=== PATIENT | male | born 1980 | race Caucasian/White ===

== ENCOUNTER 2019-05-07 02:45 | Emergency (ER) | payer MEDICAID, SELFPAY ==
[2019-05-07 02:56] VITALS: BP 126/102; RESP 16; TEMP 36.6; O2SAT 97; BMI 27.3
--- NOTE | 2019-05-07 03:18 | ED_ITS ---
Entered by Desiree Jiang, acting as scribe for Rudolph Delgado MD May 07, 2019 02:45 HPI - Anxiety General: Chief Complaint: Anxiety Stated Complaint: ANXIETY Time Seen by Provider: 05/07/19 03:20 Source: patient and family Mode of arrival: ambulatory Limitations: no limitations History of Present Illness: HPI narrative: 38 yo m came to the er pov with family for anxiety. Onset was today. Pt states that his heart feels like it is racing. complaint: anxiety Onset (ago): day(s) (today) Severity: mild Place: home Associated symptoms: Deny chest pain, chills, fever(s), headache(s) or vomiting Review of Systems Const: Denies: fever or chills Eyes: Denies: change in vision ENMT: Denies: throat pain or mouth pain Card: Denies: chest pain Resp: Denies: shortness of breath GI: Denies: vomiting Musc: Denies: back pain or joint pain Skin/Breast: Denies: rash Neuro: Denies: headache Psych: Reports: anxiety; Denies: depression Endo: Denies: excessive urination Zev/Lymph: Denies: easy bruising All/Imm: Denies: hives PFSH ED PFSH: Statuses (acute, chronic, etc) shown below reflect problem list status as previously entered and may not be historically accurate Family History Mother Hypertension Diabetes Myocardial infarction Grandmother Stroke Father CAD (coronary artery disease) Social History Smoking and tobacco status: current every day smoker Alcohol intake: never Physical Exam Const: COMMON NORMALS: no apparent distress and healthy appearing HENMT: COMMON NORMALS: normocephalic and external nose normal HEAD & SCALP: normocephalic NOSE: external nose normal and no nasal discharge (nasal dischage) Eye: COMMON NORMALS: PERRL PUPIL: Yes PERRL Neck/C-Spine: COMMON NORMALS: full ROM and no lymphadenopathy Chest: COMMONS NORMALS: inspection of chest normal Resp: COMMON NORMALS: normal respiratory effort and clear to auscultation bilaterally AUSCULTATION: clear to auscultation bilaterally Cardio: COMMON NORMALS: regular rate and regular rhythm RATE: regular rate RHYTHM: regular rhythm GI: COMMON NORMALS: soft to palpation PALPATION: Yes soft Extremity: COMMON NORMALS: normal to inspection, full ROM and normal capillary refill Psych: COMMON NORMALS: mental status grossly normal and cooperative Skin: COMMON NORMALS: no rashes or lesions noted GENERAL SKIN EXAM: no r ashes or lesions noted Course Vital Signs: Vital signs: Vital Signs Temperature 98 F 05/07/19 02:56 Pulse Rate 100 05/07/19 03:40 Respiratory Rate 18 05/07/19 03:40 Blood Pressure 116/87 05/07/19 03:40 Pulse Oximetry 99 05/07/19 03:40 MDM - Anxiety MDM Narrative: Medical decision making narrative: Patient presents here with anxiety that is chronic in nature. He is not homicidal or suicidal. Patient is well-appearing here and is stable for discharge. Patient given Ativan here and is to follow-up with primary care doctor in 3 to 5 days and return if worsening. Discharge Plan Discharge Patient Disposition: Home, Self-Care Clinical Impression: Acute anxiety Condition: Stable Prescriptions: No Action lisinopril 5 mg tablet 5 mg PO ONCE RF: 0 venlafaxine 150 mg capsule,extended release 24hr 150 mg PO QAM RF: 0 pregabalin [Lyrica] 75 mg capsule 75 mg PO ONCE RF: 0 metoprolol tartrate 25 mg tablet 12.5 mg PO ONCE RF: 0 Discharge Orders: Discharge Order (Routine); Ordered 05/07/19 Ordered By: Rudolph Delgado Referrals: Padma Charles FNP [Family Provider] - Discharge Diet: Advance as tolerated Discharge Activity: Resume usual activity Patient Instructions: Anxiety (ED) Discharge Date/Time: 05/07/19 03:41 Coding Level of Care Code ED Supervisor Painting for Chg Fwd Exam Problem Focused The documentation recorded by the Apolinar lyon Stephanie Lyn, accurately reflects the service I personally performed and the decisions made by , Rudolph Delgado MD May 07, 2019 02:45
[2019-05-07] MEDS: LORazepam 1 mg Tablet 2 MG PO (03:39)
[2019-05-07 03:40] VITALS: BP 116/87; PULSE 100; RESP 18; O2SAT 99
== END 2019-05-07 03:41 | disposition home or self-care (01) ==
PROVIDERS: Emergency Provider Emergency Medicine; Family Provider Nurse Practitioner Family
DX: F41.9 Anxiety disorder, unspecified (principal); F17.210 Nicotine dependence, cigarettes, uncomplicated
CPT/HCPCS: 99281; 99283

== ENCOUNTER 2019-05-28 22:45 | Emergency (ER) | payer MEDICAID, SELFPAY ==
[2019-05-28 22:56] VITALS: BP 139/88; PULSE 102; RESP 25; TEMP 38.8; O2SAT 96; BMI 26.6
[2019-05-28 23:01] VITALS: BP 130/85; PULSE 98; RESP 18; TEMP 39.4; O2SAT 96
--- NOTE | 2019-05-28 23:07 | ED_ITS ---
Entered by Desiree Jiang, acting as scribe for Lianne Liu Jeet May 28, 2019 22:45 HPI - Fever General: Chief Complaint: Fever Stated Complaint: flu s/s Time Seen by Provider: 05/28/19 23:07 Source: patient Mode of arrival: ambulatory Limitations: no limitations History of Present Illness: HPI Narrative: 38 yo m came to the er pov for a fever. MD elicited complaint: fever PFSH ED PFSH: Statuses (acute, chronic, etc) shown below reflect problem list status as previously entered and may not be historically accurate Social History (Updated 05/11/19 @ 15:18 by Nneka Cobos LPN) Smoking and tobacco status: current every day smoker cigarettes [ Other cigarette details: OCCASIONAL ] Second hand smoke exposure: No Smoking risk assessment/counseling performed?: No Alcohol intake: current Alcohol intake frequency: holidays/special occasions only Desire information about alcohol rehabilitation?: No Counseling given: No Desire information about substance/drug rehabilitation?: No Counseling given: No Caregiver/support person: Yes Lives independently: No Household members: spouse Current occupational status: employed Current gender identity: Male Course Vital Signs: Vital signs: Vital Signs Temperature 102 F H 05/28/19 22:56 Pulse Rate 102 H 05/28/19 22:56 Respiratory Rate 25 H 05/28/19 22:56 Blood Pressure 139/88 05/28/19 22:56 Pulse Oximetry 96 05/28/19 22:56 Discharge Plan Discharge Prescriptions: No Action amoxicillin-pot clavulanate 875-125 mg tablet 1 tab PO BID Qty: 14 RF: 0 lisinopril 5 mg tablet 5 mg PO ONCE RF: 0 venlafaxine 150 mg capsule,extended release 24hr 150 mg PO QAM RF: 0 pregabalin [Lyrica] 75 mg capsule 75 mg PO ONCE RF: 0 metoprolol tartrate 25 mg tablet 12.5 mg PO ONCE RF: 0 Coding Level of Care Code ED Customer Supply Chain Analyst for Estrellita Ramos
--- NOTE | 2019-05-28 23:13 | ED_ITS ---
HPI - General Adult General: Chief complaint: Fever Stated complaint: flu s/s Time Seen by Provider: 05/28/19 23:07 History of Present Illness: HPI narrative: Patient with fever for 2 days. Aches all over. MD complaint: fever Onset (ago): day(s) (2) Severity: moderate Associated symptoms: Reports fevers/chills and other (Muscle aches); Deny chest pain, dyspnea, headache(s), nausea, rash or vomiting Review of Systems Const: Reports: fever; Denies: chills or body aches Eyes: Denies: change in vision or blurry vision ENMT: Denies: throat pain or nasal congestion Card: Denies: chest pain or shortness of breath on exertion Resp: Denies: shortness of breath, productive cough or non-productive cough GI: Denies: abdominal pain, nausea or vomiting : Denies: difficulty urinating Musc: Denies: extremity pain Skin/Breast: Denies: rash Neuro: Denies: headache Psych: Denies: anxiety or depression Zev/Lymph: Denies: easy bruising PFSH ED PFSH: Statuses (acute, chronic, etc) shown below reflect problem list status as previously entered and may not be historically accurate Social History (Updated 05/11/19 @ 15:18 by Nneka Cobos LPN) Smoking and tobacco status: current every day smoker cigarettes [ Other cigarette details: OCCASIONAL ] Second hand smoke exposure: No Smoking risk assessment/counseling performed?: No Alcohol intake: current Alcohol intake frequency: holidays/special occasions only Desire information about alcohol rehabilitation?: No Counseling given: No Desire information about substance/drug rehabilitation?: No Counseling given: No Caregiver/support person: Yes Lives independently: No Household members: spouse Current occupational status: employed Current gender identity: Male Physical Exam Const: COMMON NORMALS: no apparent distress, average body habitus and oriented x3 HENMT: COMMON NORMALS: normocephalic HEAD & SCALP: normal to inspection and normocephalic FACE & SINUS: normal facial exam Eye: COMMON NORMALS: conjunctivae normal GENERAL EYE: normal appearance of both eyes CONJUNCTIVA: Yes conjunctivae normal Neck/C-Spine: COMMON NORMALS: no JVD Chest: COMMONS NORMALS: inspection of chest normal Resp: COMMON NORMALS: normal respiratory effort and clear to auscultation bilaterally AUSCULTATION: clear to auscultation bilaterally Cardio: COMMON NORMALS: no JVD, regular rate and regular rhythm RATE: regular rate RHYTHM: regular rhythm GI: COMMON NORMALS: normal to inspection, nondistended, normoactive bowel sounds Extremity: COMMON NORMALS: normal to inspection and full ROM Neuro: COMMON NORMALS: oriented x3 Course Vital Signs: Vital signs: Vital Signs Temperature 99.8 F H 05/29/19 00:13 Pulse Rate 98 05/28/19 23:01 Respiratory Rate 18 05/28/19 23:01 Blood Pressure 130/85 05/28/19 23:01 Pulse Oximetry 96 05/28/19 23:01 MDM - General Adult MDM Narrative: Medical decision making narrative: I explained in detail to patient and his about his labs and need to follow-up with his primary provider if there is no significant improvement in his condition patient understood. Lab Data: Labs: Lab Results 05/28/19 05/28/19 Range/Units 21:40 23:45 WBC 8.5 (4.0-10.0) 10^3/ uL RBC 4.51 (4.1-5.3) 10^6/u L Hgb 13.5 (11.7-16.6) g/dL Hct 41.5 L (42.0-52.0) % MCV 92.0 (80-94) fL MCH 29.9 (28.0-34.0) pg MCHC 32.5 (30.0-36.0) g/dL RDW 13.6 (12.1-15.1) % Plt Count 247 (130-400) 10^3/c mm MPV 10.2 (7.4-10.4) fL Neut % (Auto) 78.5 % Lymph % (Auto) 9.2 % Alfalfa % (Auto) 8.8 % Eos % (Auto) 2.5 % Baso % (Auto) 0.4 % Neut # (Auto) 6.7 (1.8-7.7) 10^3/u L Lymph # (Auto) 0.8 (0.8-4.8) 10^3/u L Alfalfa # (Auto) 0.8 (0.2-0.9) 10^3/u L Eos # (Auto) 0.2 (0.0-0.8) 10^3/u L Baso # (Auto) 0.0 (0.0-0.1) 10^3/u L Nucleated RBC % (a uto) 0 % Nucleated RBCs # 0.0 /100WBC Influenza Type A A g Negative (Negative) POC Influenza B Ag Negative (Negative) Discharge Plan Discharge Patient Disposition: Home, Self-Care Clinical Impression: Viral infection Condition: Stable Prescriptions: No Action amoxicillin-pot clavulanate 875-125 mg tablet 1 tab PO BID Qty: 14 RF: 0 lisinopril 5 mg tablet 5 mg PO ONCE RF: 0 venlafaxine 150 mg capsule,extended release 24hr 150 mg PO QAM RF: 0 pregabalin [Lyrica] 75 mg capsule 75 mg PO ONCE RF: 0 metoprolol tartrate 25 mg tablet 12.5 mg PO ONCE RF: 0 Discharge Orders: Discharge Order (Routine); Ordered 05/29/19 Ordered By: Loc Churchill Discharge Diet: Advance as tolerated Discharge Activity: Increase activity as tolerated Patient Instructions: Viral Syndrome (ED) Activity Restrictions/Additional Instructions: Follow-up with medical provider as directed. Return to the ER or your medical provider if condition worsens. Please read and understand discharge instructions. If any questions ask please. Increase fluids Coding Level of Care Code ED Braider Setter for Estrellita Ramos Exam Problem Focused
--- NOTE | 2019-05-28 23:14 | PC.NURSE ---
Introduced self to patient and initiated vital signs. Pt is A&O x 4 and agreeable. Pt states that the reason for the ER visit today is due to fever, generalized body aches, sore throat and runny nose. Reassured patient of needs and will continue to monitor. Awaiting provider at bedside.
[2019-05-28] MEDS: sodium chloride 0.9% 1,000 ML 999 ML IV (23:22)
[2019-05-28] MEDS: acetaminophen 650 mg/20.3 mL UDC PO (23:22)
[2019-05-29 00:06] LABS: Influenza A by IFA Negative (Negative); Influenza B by IFA Negative (Negative)
[2019-05-29 00:13] VITALS: TEMP 37.7
--- NOTE | 2019-05-29 00:13 | PC.NURSE ---
pt reports pain. ED Provider notified.
[2019-05-29 00:34] LABS: Basophils % 0.4 %; Eosinophils # 0.2 10^3/uL (0.0-0.8); Eosinophils % 2.5 %; Hematocrit 41.5 % (42.0-52.0); Hemoglobin 13.5 g/dL (11.7-16.6); Lymphocytes # 0.8 10^3/uL (0.8-4.8); Lymphocytes % 9.2 %; Mean Corpuscular HGB Conc 32.5 g/dL (30.0-36.0); Mean Corpuscular Hemoglobin 29.9 pg (28.0-34.0); Mean Platelet Volume 10.2 fL (7.4-10.4); Monocytes # 0.8 10^3/uL (0.2-0.9); Monocytes % 8.8 %; Neutrophils # 6.7 10^3/uL (1.8-7.7); Neutrophils % 78.5 %; Nucleated Red Blood Cells % 0 %; Platelet Count 247 10^3/cmm (130-400); Red Blood Count 4.51 10^6/uL (4.1-5.3); Red Cell Distribution Width 13.6 % (12.1-15.1); White Blood Count 8.5 10^3/uL (4.0-10.0)
[2019-05-29 00:42] LABS: Alanine Aminotransferase 47 U/L (0-41); Albumin Level 4.2 g/dL (3.5-5.2); Alkaline Phosphatase 92 IU/L (40-130); Anion Gap 16.1 (5-19); Aspartate Amino Transferase 33 U/L (0-40); Blood Urea Nitrogen 5 mg/dL (6-20); Calcium 9.4 mg/dL (8.5-10.5); Carbon Dioxide 26 mmol/L (22-29); Chloride 100 mmol/L (98-107); Globulin 3.2 g/dL (1.3-4.6); Glomerular Filtration Rate 95.5 mL/min (90-130); Glucose 101 mg/dL (74-109); Potassium 4.1 mmol/L (3.5-5.1); Sodium 138 mmol/L (136-145); Total Bilirubin 0.3 mg/dL (0.15-1.2); Total Protein 7.4 g/dL (6.6-8.7)
[2019-05-29 00:43] VITALS: BP 128/103; PULSE 68; RESP 18; TEMP 37.3; O2SAT 97
== END 2019-05-29 00:55 | disposition home or self-care (01) ==
PROVIDERS: Emergency Provider Nurse Practitioner Family
DX: B34.9 Viral infection, unspecified (principal); F17.210 Nicotine dependence, cigarettes, uncomplicated
CPT/HCPCS: 36415; 80053; 85025; 87040; 87804; 99282; J7030

== ENCOUNTER 2019-06-07 03:06 | Emergency (ER) | payer MEDICAID, SELFPAY ==
[2019-06-07 03:07] VITALS: BP 125/80; PULSE 86; RESP 16; TEMP 36.9; O2SAT 96; BMI 26.6
--- NOTE | 2019-06-07 03:07 | ED_ITS ---
Entered by Desiree Jiang, acting as scribe for Rudolph Delgado MD HPI - Chest Pain General: Chief Complaint: Chest Pain Stated Complaint: chest pain Time Seen by Provider: 06/07/19 03:07 Source: patient Mode of arrival: EMS Limitations: no limitations History of Present Illness: HPI narrative: 38 yo m came to the er by [facility] for chest pain. Onset was 30 min ago. Pt states that the pain is tight. MD complaint: chest pain Onset (ago): minute(s) (30 min ago) Timing of current episode: constant Prior episodes: No Onset: during rest Pain location: substernal Pain radiation: none Severity: mild Quality: tightness Relieving factors: nothing Exacerbating factors: nothing Associated symptoms: Reports no associated symptoms; Deny abdominal pain, dyspnea, fever(s), nausea or vomiting Treatment prior to arrival: aspirin and nitroglycerin Risk Factors: Thoracic aortic dissection risk factors: none Review of Systems General: Reports: other (negative unless marked) Const: Denies: fever, chills, body aches or change in appetite Eyes: Denies: blurry vision or eye discomfort ENMT: Denies: throat pain or dental pain Card: Denies: chest pain Resp: Denies: shortness of breath GI: Denies: abdominal pain, nausea, vomiting or diarrhea : Denies: painful urination Musc: Denies: neck pain or back pain Skin/Breast: Denies: rash Neuro: Denies: headache Psych: Denies: depression Zev/Lymph: Denies: easy bruising All/Imm: Denies: hives PFSH ED PFSH: Statuses (acute, chronic, etc) shown below reflect problem list status as previously entered and may not be historically accurate Surgical History (Updated 05/30/19 @ 15:51 by Prasanna Cedeno MD) History of esophagogastroduodenoscopy (EGD) (Acute) S/P colonoscopy (Acute) Social History (Updated 05/30/19 @ 15:30 by TAYO Barkley) Smoking and tobacco status: current some day smoker cigarettes [ Other cigarette details: OCCASIONAL ] Second hand smoke exposure: No Smoking risk assessment/counseling performed?: No Alcohol intake: current Alcohol intake frequency: holidays/special occasions only Desire information about alcohol rehabilitation?: No Counseling given: No Desire information about substance/drug rehabilitation?: No Counseling given: No Caregiver/support person: Yes Lives independently: No Household members: spouse Current occupational status: employed History of recent travel: No Current gender identity: Male Physical Exam Const: COMMON NORMALS: no apparent distress, oriented x3 and healthy appearing HENMT: COMMON NORMALS: normocephalic and head/scalp atraumatic HEAD & SCALP: normocephalic and atraumatic Eye: COMMON NORMALS: PERRL and EOMs intact bilaterally PUPIL: Yes PERRL Neck/C-Spine: COMMON NORMALS: full ROM and supple Chest: COMMONS NORMALS: inspection of chest normal and palpation of chest normal Resp: COMMON NORMALS: normal respiratory effort, no retractions, no use of accessory muscles and clear to auscultation bilaterally AUSCULTATION: clear to auscultation bilaterally Cardio: COMMON NORMALS: regular rate, regular rhythm and no murmurs RATE: regular rate RHYTHM: regular rhythm GI: COMMON NORMALS: normal to inspection, nondistended, normoactive bowel sounds, soft to palpation, non-tender and no masses PALPATION: Yes soft Extremity: COMMON NORMALS: normal to inspection and full ROM Neuro: COMMON NORMALS: oriented x3, moves all extremities and no focal motor deficits Psych: COMMON NORMALS: mental status grossly normal, thought process normal and cooperative THOUGHT PROCESS: normal thought process Skin: COMMON NORMALS: no rashes or lesions noted and no wounds GENERAL SKIN EXAM: no rashes or lesions noted Course Vital Signs: Vital signs: Vital Signs Temperature 98.4 F 06/07/19 03:07 Pulse Rate 74 06/07/19 05:04 Respiratory Rate 16 06/07/19 05:04 Blood Pressure 114/61 06/07/19 05:07 Pulse Oximetry 96 06/07/19 05:04 MDM - Chest Pain MDM Narrative: Medical decision making narrative: Patient presents here with chest pain that is atypical in nature. Patient's initial and repeat troponin here negative and EKGs and x-ray are normal. Patient is stable for discharge and is to follow-up with his primary care doctor in 3 to 4 days and return if worsening. Lab Data: Labs: Lab Results 06/07/19 06/07/19 06/07/19 Range/Units 03:32 03:32 03:32 WBC 8.4 (4.0-10.0) 10^3/ uL RBC 4.57 (4.1-5.3) 10^6/u L Hgb 13.6 (11.7-16.6) g/dL Hct 41.9 L (42.0-52.0) % MCV 91.7 (80-94) fL MCH 29.8 (28.0-34.0) pg MCHC 32.5 (30.0-36.0) g/dL RDW 13.5 (12.1-15.1) % Plt Count 278 (130-400) 10^3/c mm MPV 9.9 (7.4-10.4) fL Neut % (Auto) 60.1 % Lymph % (Auto) 29.3 % Bee % (Auto) 6.8 % Eos % (Auto) 3.1 % Baso % (Auto) 0.5 % Neut # (Auto) 5.1 (1.8-7.7) 10^3/u L Lymph # (Auto) 2.5 (0.8-4.8) 10^3/u L Bee # (Auto) 0.6 (0.2-0.9) 10^3/u L Eos # (Auto) 0.3 (0.0-0.8) 10^3/u L Baso # (Auto) 0.0 (0.0-0.1) 10^3/u L Nucleated RBC % (a uto) 0 % Nucleated RBCs # 0.0 /100WBC Sodium 140 (136-145) mmol/L Potassium 3.8 (3.5-5.1) mmol/L Chloride 103 (98-107) mmol/L Carbon Dioxide 23 (22-29) mmol/L Anion Gap 17.8 (5-19) BUN 13 (6-20) mg/dL Creatinine 0.8 (0.7-1.2) mg/dL GFR Calculation 109.4 (90-130) mL/min Glucose 103 (65-115) mg/dL Calculated Osmolal ity 286 (285-295) mOsm/k g Calcium 9.2 (8.5-10.5) mg/dL Troponin T Baselin e 6 (0-15) ng/mL Troponin T 120 Min su (0-15) ng/mL 06/07/19 Range/Units 05:10 WBC (4.0-10.0) 10^3/ uL RBC (4.1-5.3) 10^6/u L Hgb (11.7-16.6) g/dL Hct (42.0-52.0) % MCV (80-94) fL MCH (28.0-34.0) pg MCHC (30.0-36.0) g/dL RDW (12.1-15.1) % Plt Count (130-400) 10^3/c mm MPV (7.4-10.4) fL Neut % (Auto) % Lymph % (Auto) % Bee % (Auto) % Eos % (Auto) % Baso % (Auto) % Neut # (Auto) (1.8-7.7) 10^3/u L Lymph # (Auto) (0.8-4.8) 10^3/u L Bee # (Auto) (0.2-0.9) 10^3/u L Eos # (Auto) (0.0-0.8) 10^3/u L Baso # (Auto) (0.0-0.1) 10^3/u L Nucleated RBC % (a uto) % Nucleated RBCs # /100WBC Sodium (136-145) mmol/L Potassium (3.5-5.1) mmol/L Chloride (98-107) mmol/L Carbon Dioxide (22-29) mmol/L Anion Gap (5-19) BUN (6-20) mg/dL Creatinine (0.7-1.2) mg/dL GFR Calculation (90-130) mL/min Glucose (65-115) mg/dL Calculated Osmolal ity (285-295) mOsm/k g Calcium (8.5-10.5) mg/dL Troponin T Baselin e (0-15) ng/mL Troponin T 120 Min su 6.00 (0-15) ng/mL Imaging Data^: CXR: Attestation: I personally reviewed and interpreted this imaging study as follows: My impression: no acute abnormality EKG Data^: EKG 1: Attestation: I personally reviewed and interpreted this EKG as follows: EKG interpretation date: 06/07/19 EKG interpretation time: 03:10 Interpretation: nsr hr [address] or t wave abnormalities qrs 113 qtc 389 EKG 2: Attestation: I personally reviewed and interpreted this EKG as follows: EKG interpretation date: 06/07/19 EKG interpretation time: 04:18 Interpretation: sinus lissette hr [address] or t wave abnormalities qrs 112 qtc 372 EKG 3: Attestation: I personally reviewed and interpreted this EKG as follows: EKG interpretation date: 06/07/19 EKG interpretation time: 05:02 Interpretation: Bradycardia heart rate [address] or T wave abnormalities QRS 114 QTC 374 Discharge Plan Discharge Patient Disposition: Home, Self-Care Clinical Impression: Chest pain Qualifiers: Chest pain type: other chest pain Qualified Code(s): R07.89 - Other chest pain Condition: Stable Prescriptions: New EC-Naprosyn 500 mg tablet,delayed release (DR/EC) 500 mg PO BID PRN (Reason: pain) Qty: 20 RF: 0 No Action pantoprazole 40 mg tablet,delayed release (DR/EC) 40 mg PO BID Qty: 60 RF: 6 lisinopril 5 mg tablet 5 mg PO ONCE RF: 0 venlafaxine 150 mg capsule,extended release 24hr 150 mg PO QAM RF: 0 pregabalin [Lyrica] 75 mg capsule 75 mg PO ONCE RF: 0 metoprolol tartrate 25 mg tablet 12.5 mg PO ONCE RF: 0 Discharge Orders: Discharge Order (Routine); Ordered 06/07/19 Ordered By: Rudolph Delgado Discharge Diet: Advance as tolerated Discharge Activity: Resume usual activity Patient Instructions: Chest Pain (ED) Coding Level of Care Code ED Inspection Engineer for Chg Fwd The documentation recorded by the Apolinar lyon Stephanie Lyn, accurately reflects the service I personally performed and the decisions made by Sandy dixon Korby, MD Jun 07, 2019 03:06
--- NOTE | 2019-06-07 03:08 | ECG_ITS ---
Measurements Intervals [place] Rate: 77 P: 2 [place]: 127 QRS: 15 QRSD: 113 T: 33 QT: 358 QTc: 405 SINUS RHYTHM POSSIBLE LATERAL MYOCARDIAL INFARCTION [30 ms Q WAVE IN I/aVL/V5/V6], OF IN INDETERMINATE AGE No previous ECG available for comparison Electronically Signed On 06-07-2019 22:15:45 PAPER REEL OPERATOR by Sandy Martinez M.D. [id number]
--- NOTE | 2019-06-07 03:08 | XR_ITS ---
WS: [id number] Portable AP upright chest, 06/07/2019 Clinical Data: chest pain Comparison: None. Findings: No nodules, masses or effusions are seen. The heart is normal. The pulmonary vascularity is not increased. No pneumonia or pneumothorax is seen. Monitor leads are on the chest wall. XR/XR chest 1V portable [id number] Impression: Negative chest.
[2019-06-07 03:17] VITALS: BP 123/85; PULSE 77; RESP 16; O2SAT 96
--- NOTE | 2019-06-07 03:21 | PC.NURSE ---
Patient states he was driving home when he started to have left sided chest pain. Patient stated that his pain was a 8/10 and that he has a history of chest pain and high blood pressure. Patient states that the chest pain started 30 minutes prior to arrival in the ED.
--- NOTE | 2019-06-07 03:22 | PC.NURSE ---
XRAY IN ROOM
[2019-06-07] MEDS: ketorolac 30 mg/mL INJ IVP (03:44)
[2019-06-07 03:46] LABS: Basophils % 0.5 %; Eosinophils # 0.3 10^3/uL (0.0-0.8); Eosinophils % 3.1 %; Hematocrit 41.9 % (42.0-52.0); Hemoglobin 13.6 g/dL (11.7-16.6); Lymphocytes # 2.5 10^3/uL (0.8-4.8); Lymphocytes % 29.3 %; Mean Corpuscular HGB Conc 32.5 g/dL (30.0-36.0); Mean Corpuscular Hemoglobin 29.8 pg (28.0-34.0); Mean Corpuscular Volume 91.7 fL (80-94); Mean Platelet Volume 9.9 fL (7.4-10.4); Monocytes # 0.6 10^3/uL (0.2-0.9); Monocytes % 6.8 %; Neutrophils # 5.1 10^3/uL (1.8-7.7); Neutrophils % 60.1 %; Nucleated Red Blood Cells % 0 %; Platelet Count 278 10^3/cmm (130-400); Red Blood Count 4.57 10^6/uL (4.1-5.3); Red Cell Distribution Width 13.5 % (12.1-15.1); White Blood Count 8.4 10^3/uL (4.0-10.0)
--- NOTE | 2019-06-07 03:49 | PC.NURSE ---
Patients partner in room with patient stated to nurse that they felt like they were going to pass out and fall in the floor . Nurse notified charge nurse and told patients partner that they could check in to the ED if they are feeling like they need to. Patients partner then asked who the doctor was (patient had been previously seen in the ED tonight by the same doctor). Patients partner then stated that they did not want to register to be seen in the ED and that they were fine and wanted to see if the patient would be kept overnight before they decided if they were feeling bad enough to be seen in the ED. Nurse informed patients partner in room that they were more than welcome to register and be seen by the ED but patients partner in room refused.
[2019-06-07 03:54] VITALS: BP 139/91; PULSE 59; RESP 16; O2SAT 95
[2019-06-07 04:02] LABS: Anion Gap 17.8 (5-19); Blood Urea Nitrogen 13 mg/dL (6-20); Calcium 9.2 mg/dL (8.5-10.5); Carbon Dioxide 23 mmol/L (22-29); Chloride 103 mmol/L (98-107); Glomerular Filtration Rate 109.4 mL/min (90-130); Glucose 103 mg/dL (65-115); Osmolality Calculated 286 mOsm/kg (285-295); Potassium 3.8 mmol/L (3.5-5.1); Sodium 140 mmol/L (136-145); Troponin(5th) Baseline 6 ng/mL (0-15)
[2019-06-07] MEDS: nitroglycerin 0.4 mg sublingual Tablet SUBLINGUAL (05:02)
[2019-06-07] MEDS: aspirin 81 mg Chew Tablet 324 MG PO (05:02)
[2019-06-07 05:04] VITALS: BP 123/69; PULSE 74; RESP 16; O2SAT 96
[2019-06-07 05:07] VITALS: BP 114/61
--- NOTE | 2019-06-07 05:08 | ECG_ITS ---
Measurements Intervals [place] Rate: 55 P: 12 [place]: 130 QRS: 20 QRSD: 112 T: 17 QT: 383 QTc: 368 SINUS BRADYCARDIA POSSIBLE LATERAL MYOCARDIAL INFARCTION , OF INDETERMINATE AGE [30 ms Q WAVE IN I/ I/aVL/V5/V6] No previous ECG available for comparison Electronically Signed On 06-07-2019 22:18:38 HAIR SPINNING MACHINE OPERATOR by Sandy Martinez M.D. [id number]
[2019-06-07 05:32] LABS: Troponin 5 2HR Delta 0 ABS# (0-10)
[2019-06-07] MEDS: ketorolac 30 mg/mL INJ 15 MG IVP (05:55)
[2019-06-07 06:00] VITALS: BP 118/66; PULSE 73; RESP 16; TEMP 36.4; O2SAT 97
--- NOTE | 2019-06-07 09:08 | ECG_ITS ---
Measurements Intervals [place] Rate: 53 P: 39 [place]: 139 QRS: 28 QRSD: 114 T: 34 QT: 390 QTc: 369 SINUS BRADYCARDIA MODERATE INTRAVENTRICULAR CONDUCTION DELAY [110+ ms QRS DURATION] NONSPECIFIC T-WAVE ABNORMALITY No previous ECG available for comparison Electronically Signed On 06-07-2019 22:18:44 TEMP RECRUITER by Sandy Martinez M.D. [id number]
== END 2019-06-07 06:01 | disposition home or self-care (01) ==
PROVIDERS: Emergency Provider Emergency Medicine
DX: R07.89 Other chest pain (principal); F17.210 Nicotine dependence, cigarettes, uncomplicated
CPT/HCPCS: 36415; 71045; 80048; 84484; 85025; 93005; 96374; 96375; 99283; 99284; J1885

== ENCOUNTER 2019-07-18 21:56 | Emergency (ER) | payer MEDICAID, SELFPAY | END 2019-07-18 22:44 | disposition still patient (30) | LOC: ER 07-25 15:49 | PROVIDERS: Emergency Provider Family Medicine; Family Provider Family Medicine; PCP Family Medicine | DX: Z01.89 Encounter for other specified special examinations (principal) | CPT/HCPCS: 12345; 71045; 80053; 83735; 84484; 85025; 85610; 85730; 96374; 99282; 99285; J1644; J2250 ==

== ENCOUNTER 2019-07-18 21:56 | Inpatient (IN) | payer MEDICAID, SELFPAY ==
--- NOTE | 2019-07-18 21:57 | ED_ITS ---
Entered by Desiree Jiang, acting as scribe for HPI - Chest Pain General: Chief Complaint: Chest Pain Stated Complaint: chest pain Time Seen by Provider: 07/18/19 21:57 Source: patient and EMS Mode of arrival: EMS ([facility]) Limitations: no limitations History of Present Illness: HPI narrative: 39 yo m came in to the er by ems for a stemi. 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 Pt was given nitro and asprin in route. 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) Onset: during rest Pain location: substernal Pain radiation: none Severity: severe Relieving factors: nitroglycerin and other (asprin) Exacerbating factors: nothing Associated symptoms: Deny abdominal pain, dyspnea, fever(s), nausea or vomiting Treatment prior to arrival: aspirin and nitroglycerin Risk Factors: Coronary artery disease risk factors: none Thoracic aortic dissection risk factors: none Review of Systems General: Reports: other (egative unless marked) Const: Denies: fever, chills, body aches, fatigue, malaise or night sweats ENMT: Denies: throat pain, oral sores/lesions, dental pain, nasal discharge or nasal congestion Card: Reports: chest pain Resp: Denies: shortness of breath, productive cough, non-productive cough or wheezing GI: Denies: abdominal pain, nausea, vomiting, vomiting blood, coffee grounds in vomit, difficulty swallowing, heartburn/indigestion, diarrhea, constipation, cramping, blood in stool or black tarry stool : Denies: flank pain, difficulty urinating, painful urination, urinary frequency, urinary urgency, urinary incontinence or blood in urine Musc: Denies: neck pain, back pain, extremity pain, extremity swelling, joint pain or joint swelling Neuro: Denies: headache, numbness in extremities, weakness in extremities, changes in sensation, lack of coordination, difficulty walking, frequent falls, dizziness, vertigo or confusion Psych: Denies: anxiety, depression, loss of interest, visual hallucinations, auditory hallucinations, suicidal ideation or homicidal ideation [facility] ED PFSH: Surgical History History of esophagogastroduodenoscopy (EGD) S/P colonoscopy Family History Mother Hypertension Diabetes Myocardial infarction Grandmother Stroke Father CAD (coronary artery disease) Social History Smoking and tobacco status: current every day smoker cigarettes [ Other cigarette details: OCCASIONAL ] Second hand smoke exposure: No Smoking risk assessment/counseling performed?: No Alcohol intake: current Alcohol intake frequency: holidays/special occasions only Desire information about alcohol rehabilitation?: No Counseling given: No Desire information about substance/drug rehabilitation?: No Counseling given: No Caregiver/support person: Yes Lives independently: No Household members: spouse Current occupational status: employed History of recent travel: No Current gender identity: Male Physical Exam Const: COMMON NORMALS: no apparent distress GENERAL APPEARANCE: cooperative and comfortable ORIENTATION/CONSCIOUSNESS: Yes awake, Yes oriented to person, Yes oriented to place and Yes oriented to time HENMT: COMMON NORMALS: normocephalic, head/scalp atraumatic, hearing grossly normal bilaterally, external ears normal, EAC's normal, TM's normal bilaterally, nasal mucous membranes and turbinates normal, moist oral mucous membranes and oropharynx normal HEAD & SCALP: normocephalic and atraumatic NOSE: nasal mucous membranes and turbinates normal EXTERNAL EAR: Yes external ears normal EXTERNAL AUDITORY CANAL: EAC's normal TYMPANIC MEMBRANE: TM's normal bilaterally Eye: COMMON NORMALS: PERRL, EOMs intact bilaterally, conjunctivae normal and no scleral icterus CONJUNCTIVA: Yes conjunctivae normal PUPIL: Yes PERRL Neck/C-Spine: COMMON NORMALS: full ROM, no lymphadenopathy, supple and no JVD Lymph: LYMPHATIC: no lymphadenopathy noted and no lymphedema noted Resp: COMMON NORMALS: normal respiratory effort, no retractions, no use of accessory muscles and clear to auscultation bilaterally AUSCULTATION: clear to auscultation bilaterally Cardio: COMMON NORMALS: no JVD, regular rate, regular rhythm and no murmurs RATE: regular rate RHYTHM: regular rhythm GI: COMMON NORMALS: soft to palpation and no hepatosplenomegaly AUSCULTATION: Yes normoactive bowel sounds PALPATION: Yes soft, No tender, No guarding and Yes no hepatosplenomegaly Extremity: COMMON NORMALS: normal to inspection, normal capillary refill, no clubbing, cyanosis or edema, no calf tenderness and no pedal edema Neuro: SENSORIUM/ORIENTATION: Yes oriented to person, Yes oriented to place and Yes oriented to time Skin: COMMON NORMALS: no rashes or lesions noted GENERAL SKIN EXAM: no rashes or lesions noted Course Vital Signs: Vital signs: Vital Signs Temperature 98.3 F 07/19/19 11:08 Pulse Rate 74 07/19/19 11:08 Respiratory Rate 20 H 07/19/19 11:08 Blood Pressure 101/71 07/19/19 11:08 Pulse Oximetry 92 07/19/19 11:08 MDM - Chest Pain MDM Narrative: Medical decision making narrative: Patient was taken by cardiology to the [facility]. Lab Data: Labs: Lab Results 07/18/19 07/18/19 07/18/19 Range/Units 22:05 22:05 22:05 WBC 14.5 H (4.0-10.0) 10^3/ uL RBC 4.59 (4.1-5.3) 10^6/u L Hgb 13.7 (11.7-16.6) g/dL Hct 42.6 (42.0-52.0) % MCV 92.8 (80-94) fL MCH 29.8 (28.0-34.0) pg MCHC 32.2 (30.0-36.0) g/dL RDW 12.9 (12.1-15.1) % Plt Count 274 (130-400) 10^3/c mm MPV 9.6 (7.4-10.4) fL Neut % (Auto) 70.9 % Lymph % (Auto) 20.5 % [place] % (Auto) 5.6 % Eos % (Auto) 2.4 % Baso % (Auto) 0.3 % Neut # (Auto) 10.2 H (1.8-7.7) 10^3/u L Lymph # (Auto) 3.0 (0.8-4.8) 10^3/u L [place] # (Auto) 0.8 (0.2-0.9) 10^3/u L Eos # (Auto) 0.4 (0.0-0.8) 10^3/u L Baso # (Auto) 0.1 (0.0-0.1) 10^3/u L Nucleated RBC % (a uto) 0 % Nucleated RBCs # 0.0 /100WBC PT 14.00 H (10.5-13.3) SECO NDS INR 1.05 (0.8-1.2) APTT 29.1 (23.9-36.7) SECO NDS Sodium 141 (136-145) mmol/L Potassium 3.9 (3.5-5.1) mmol/L Chloride 105 (98-107) mmol/L Carbon Dioxide 28 (22-29) mmol/L Anion Gap 11.9 (5-19) BUN 11 (6-20) mg/dL Creatinine 1.0 (0.7-1.2) mg/dL GFR Calculation 84.1 L (90-130) mL/min Glucose 91 (65-115) mg/dL Calculated Osmolal ity 288 (285-295) mOsm/k g Calcium 9.0 (8.5-10.5) mg/dL Magnesium 2.2 (1.7-2.3) mg/dL Total Bilirubin 0.2 (0.15-1.2) mg/dL AST 24 (0-40) U/L ALT 49 H (0-41) U/L Alkaline Phosphata se 75 (40-130) IU/L Troponin T Baselin e (0-15) ng/mL Total Protein 6.9 (6.6-8.7) g/dL Albumin 3.9 (3.5-5.2) g/dL Globulin 3.0 (1.3-4.6) g/dL 07/18/19 Range/Units 22:05 WBC (4.0-10.0) 10^3/ uL RBC (4.1-5.3) 10^6/u L Hgb (11.7-16.6) g/dL Hct (42.0-52.0) % MCV (80-94) fL MCH (28.0-34.0) pg MCHC (30.0-36.0) g/dL RDW (12.1-15.1) % Plt Count (130-400) 10^3/c mm MPV (7.4-10.4) fL Neut % (Auto) % Lymph % (Auto) % [place] % (Auto) % Eos % (Auto) % Baso % (Auto) % Neut # (Auto) (1.8-7.7) 10^3/u L Lymph # (Auto) (0.8-4.8) 10^3/u L [place] # (Auto) (0.2-0.9) 10^3/u L Eos # (Auto) (0.0-0.8) 10^3/u L Baso # (Auto) (0.0-0.1) 10^3/u L Nucleated RBC % (a uto) % Nucleated RBCs # /100WBC PT (10.5-13.3) SECO NDS INR (0.8-1.2) APTT (23.9-36.7) SECO NDS Sodium (136-145) mmol/L Potassium (3.5-5.1) mmol/L Chloride (98-107) mmol/L Carbon Dioxide (22-29) mmol/L Anion Gap (5-19) BUN (6-20) mg/dL Creatinine (0.7-1.2) mg/dL GFR Calculation (90-130) mL/min Glucose (65-115) mg/dL Calculated Osmolal ity (285-295) mOsm/k g Calcium (8.5-10.5) mg/dL Magnesium (1.7-2.3) mg/dL Total Bilirubin (0.15-1.2) mg/dL AST (0-40) U/L ALT (0-41) U/L Alkaline Phosphata se (40-130) IU/L Troponin T Baselin e 6 (0-15) ng/mL Total Protein (6.6-8.7) g/dL Albumin (3.5-5.2) g/dL Globulin (1.3-4.6) g/dL Discharge Plan Discharge Admit Provider: Shay Martinez Clinical Impression: ST elevation myocardial infarction (STEMI) Condition: Stable Discharge Orders: Discharge Order (Routine); Ordered 07/19/19 Ordered By: Shay Martinez Discharge Diet: Cardiac Discharge Activity: Resume usual activity Interventions: ED Discharge Assessment Last Done: 07/18/19 22:43 Discharge Date/Time: 07/18/19 22:44 Coding Level of Care Code ED Crop Supervisor for Chg Fwd Exam Comprehensive The documentation recorded by the Apolinar lyon Stephanie Lyn, accurately reflects the service I personally performed and the decisions made by me, Melecio Benitez, DO Jul 18, 2019 22:22
--- NOTE | 2019-07-18 22:01 | XR_ITS ---
WS: [id number] XR chest 1V portable [id number] REASON FOR EXAM: cough FINDINGS: Comparisons were made to June 07, 2019. The heart mediastinum were normal. The lung chance are well aerated. No pneumonia, pleural effusion, pulmonary edema, no pneumothorax. The hilum and apices normal. XR/XR chest 1V portable [id number] IMPRESSION: Negative chest for active pathology.
[2019-07-18] MEDS: heparin 5,000 unit/mL INJ 1 mL 4000 UNIT IV (22:06)
[2019-07-18 22:07] VITALS: BP 123/74; PULSE 79; RESP 16; O2SAT 98; BMI 26.6
[2019-07-18] MEDS: clopidogrel 300 mg Tablet 600 MG PO (22:07)
[2019-07-18 22:10] LABS: Basophils # 0.1 10^3/uL (0.0-0.1); Basophils % 0.3 %; Eosinophils # 0.4 10^3/uL (0.0-0.8); Eosinophils % 2.4 %; Hematocrit 42.6 % (42.0-52.0); Hemoglobin 13.7 g/dL (11.7-16.6); Lymphocytes % 20.5 %; Mean Corpuscular HGB Conc 32.2 g/dL (30.0-36.0); Mean Corpuscular Hemoglobin 29.8 pg (28.0-34.0); Mean Corpuscular Volume 92.8 fL (80-94); Mean Platelet Volume 9.6 fL (7.4-10.4); Monocytes # 0.8 10^3/uL (0.2-0.9); Monocytes % 5.6 %; Neutrophils # 10.2 10^3/uL (1.8-7.7); Neutrophils % 70.9 %; Nucleated Red Blood Cells % 0 %; Platelet Count 274 10^3/cmm (130-400); Red Blood Count 4.59 10^6/uL (4.1-5.3); Red Cell Distribution Width 12.9 % (12.1-15.1); White Blood Count 14.5 10^3/uL (4.0-10.0)
--- NOTE | 2019-07-18 22:10 | XACV_ITS ---
Ht: 170 cm Wt: 77 kg BSA: 1.92 m2 Gender: Male : 1980 Any Known Allergies: No known allergies Exam Priority: Routine Procedure(s): Procedure Description: Diagnostic procedure Procedure Description: Coronary Angiography Diagnostic Cath Status: Emergency Diagnostic Findings Angiography shows a right coronary dominant system. The left main, left anterior descending left circumflex and right coronary arteries are free of any significant disease. Coronary angiography shows normal in the left main artery, moderate disease in the left anterior descending artery, normal in the circumflex artery and normal in the right coronary artery. LM has 0% stenosis. CX has 0% stenosis. RCA has 0% stenosis. mLAD to dLAD: Moderate 50% stenosis, MARQUES: 3 flow. Coronary angiography shows right dominance. PCI Status: Elective Conclusions 1. Nonobstructive coronary disease. 2. Normal LV function EF of 55%. There is mild coronary artery disease with one vessel disease. Anterior and inferior patel are normal. Normal left ventricular systolic function. Ejection fraction of 55%. Recommendations 1. Would initiate and continue aspirin 81 IV once a day, Plavix 75 g p.o. once a day for 30 days. 2. Would optimize medications including statins ELIAS inhibitor and beta-blockers for 3 months. 3. If patient has further symptoms suggestive of ischemic heart disease, may consider cardiac stress test to rule out ischemia involving the anterior territory. If cardiac stress test is abnormal may consider repeat cardiac catheterization with FFR directed catheter based intervention to mid LAD territory. Regarding current presentation, differential diagnosis includes vasospastic angina for which patient be started on Imdur 30 g p.o. once a day. Diagnostic RX Recommendation: medical therapy and/or counseling Ejection Fraction: 55.0 % Pressures Phase:Rest AO : 123 mmHg / 76 mmHg ( 96 mmHg ) @ 5:34:00 PM 122 mmHg / 75 mmHg ( 95 mmHg ) @ 5:34:00 PM LV : 118 mmHg / 3 mmHg / @ 5:34:00 PM 128 mmHg / -11 mmHg / @ 5:34:00 PM 130 mmHg / -11 mmHg / @ 5:34:00 PM Valves Phase:DefaultPhase AV : 7.0 mmHg @ 10:44:16 PM AV Mean Gradient: 14.0 mmHg @ 10:44:16 PM 14.0 mmHg @ 10:44:16 PM Clinical Evaluation EBL: 5mL-10mL Procedural Details Procedure Consent Obtained. Pre-Procedure Time Out. Identified patient by full name and date of as verbalized by the patient/guarantor. Does the consent match the physician's order: Yes. Accurate & Complete Informed Consent: N/A Emergent; Informed Consent not obtained due to time critical life threat. Inpatient/Outpatient History & Physical on Chart: N/A Emergent; Informed Consent not obtained due to time critical life threat. If H&P is completed, is and addenduem needed: N/A Emergent; Informed Consent not obtained due to time critical life threat; If yes, is the addendum complete: N/A Emergent; Informed Consent not obtained due to time critical life threat. Visualize and Verify Site with Patient/Guarantor: N/A. Relevant Radiology Images available: N/A Emergent; Informed Consent not obtained due to time critical life threat. The risks, benefits, and alternatives of sedation and/or procedure were discussed by physician. The patient agrees to continue. Procedure started. Correct patient, site and procedure confirmed by cath team. Current diagnosis: STEMI. PERRLA. Strong, equal hand bill sorter bilaterally. Lungs clear x 5 lobes. IV Site on Arrival: 20 gauge in the right anticubital. IV Fluids: 0.9% NaCl at KVO. 0 mL infused prior to laborer cheesemaking. Pre Procedural Pulses: bilateral dorsalis pedis was 3+. Pre Procedural Pulses: bilateral posterior tibial was 3+. Oxygen started at 2liters/min via nasal canula. bilateral groins was prepped with chloroprep then draped in the usual sterile fashion. Baseline sample Acquired. HR: 85 BPM. Equipment: 6F - Femoral. Cardiac Cath Pack. ACIST Manifold Kit Model BT 2000. Heparinized Saline (2 units/mL), 1000 mL bag. Physician scrubbed in. Immediate Pre-Procedure Time Out. Correct Patient: Yes; Correct Procedure: Yes; Correct Site: Yes; Correct Patient Position: Yes; Correct Supplies: Yes; Dried Flammable Prep: Yes; Blood Products Available: No;. Lidocaine 1% infiltrated to the right groin. Arterial access obtained. A 6 nepalese JR4 catheter in over wire. Multiple views taken of right coronary artery. Catheter out. A 6 nepalese JL4 catheter in over wire. Multiple views taken of left coronary artery. Catheter out. A 6 nepalese Angled Pig catheter in over wire. EDP Sample taken: LV 118/3,12; HR: 78 BPM; SpO2: 94%. LV gram performed in LOJA @ 10 mL/second for a total of 30 mL. EDP Sample taken: LV 128/-12,13; HR: 76 BPM; SpO2: 98%. Pullback taken: LV 130/-12,14; AO 123/76(96); Mean: 14mmHg, Peak to Peak: 7mmHg, SEP: 17sec/min; HR: 76 BPM; SpO2: 98%. Sheath(s) sutured into position with 2-0 silk and sterile 4x4's and Op-site applied over the site. No oozing or signs and symptoms of hematoma noted. Arterial sheath flushed and connected to tranducer and pressure bag with heparinized saline. Post Procedure: Pulses reassessed and unchanged. PERRLA. Strong, equal hand bill sorter bilaterally. No VTE prophylaxis required. Total IV fluids: 600 mL. Contrast type used: Omnipaque 300 mgI/mL, 500 mL bottle. Post-op diagnosis: Unstable Angina; precordial Chest Pain. Complications: None. Estimated blood loss: 5mL-10mL. Patient received 324mg Aspirin, 500mg Plavix, 4000 units of Heparin and 3 sublingual Nitro tablets in the ED prior to arrival in laborer cheesemaking. Vital chart was stopped. Procedure completed. Patient transferred by bed to 1st floor. Site: Right Femoral artery Sheath Size: 6 Fr Hemostasis Success: Unsuccessful Procedure Medications Start: 10:27 PM Stop: 10:27 PM Medication: Versed Amount: 2 mg Route: I.V. Start: 10:27 PM Stop: 10:27 PM Medication: Fentanyl Amount: 100 mcg Route: I.V. Start: 10:32 PM Stop: 10:32 PM Medication: Heparin Amount: 2000 units Route: I.V. I, the attending physician, have reviewed and verified all procedure medications. Yes, all medications given per verbal order History/Risk Factors Hypertension: No Dyslipidemia: No Peripheral Arterial Disease (PAD): No Myocardial Infarction (AL): No Obesity: No Renal Disease: No Prior Interventions PCI: No CABG: No Valve Surgery: No Report Signatures Amended By:Derek Martinez MD on 07/19/2019 1:09:02 PM Finalized by:Derek Martinez MD on 07/19/2019 8:27:17 AM
--- NOTE | 2019-07-18 22:23 | PC.NURSE ---
Cathlab here to take patient, patient left in stable condition in care of cath team with ivf infusing.
[2019-07-18 22:25] LABS: Alanine Aminotransferase 49 U/L (0-41); Albumin Level 3.9 g/dL (3.5-5.2); Alkaline Phosphatase 75 IU/L (40-130); Anion Gap 11.9 (5-19); Aspartate Amino Transferase 24 U/L (0-40); Blood Urea Nitrogen 11 mg/dL (6-20); Carbon Dioxide 28 mmol/L (22-29); Chloride 105 mmol/L (98-107); Creatinine Clr Calc Pharmacy 100.8605; Glomerular Filtration Rate 84.1 mL/min (90-130); Glucose 91 mg/dL (65-115); Magnesium 2.2 mg/dL (1.7-2.3); Osmolality Calculated 288 mOsm/kg (285-295); Potassium 3.9 mmol/L (3.5-5.1); Sodium 141 mmol/L (136-145); Total Bilirubin 0.2 mg/dL (0.15-1.2); Total Protein 6.9 g/dL (6.6-8.7)
[2019-07-18 22:27] LABS: Troponin(5th) Baseline 6 ng/mL (0-15)
[2019-07-18 22:32] LABS: INR 1.05 (0.8-1.2)
[2019-07-18 22:34] LABS: Partial Thromboplastin Time 29.1 SECONDS (23.9-36.7)
--- NOTE | 2019-07-18 22:53 | P.HP_ITS ---
Providers/Chief Complaint Primary Care Provider: Robert Rivera Chief Complaint: chest pain History of Present Illness Mac Bryan is a 39 year old male male known to have essential hypertension, gastritis, who was transported for evaluation of: * Precordial chest pain for the past 40 minutes. According to the patient he was doing well until 1 hour prior to presentation when while at rest, he started noticing retrosternal chest pain which he rates a 6 on a scale of 10, with no associated nausea vomiting diaphoresis. As his dis comfort continued, he denies any associated palpitation nausea vomiting, presyncope syncope. EMS services were activated. Upon arrival, EMS services performed an EKG which revealed subtle inferior ST elevation, following with STEMI was activated and patient was transported to [facility] further evaluation. Upon arrival to the ER, patient was hemodynamically stable, we given aspirin for 10 units of IV heparin in addition to 600 g of Plavix p.o. A repeat EKG was performed which did reveal normal sinus rhythm with nonspecific ST elevation involving the inferior leads. Based on ongoing chest pain, if we decide to proceed with cardiac catheterization for further evaluation management. Patient denies any history of present heart murmur fever heart murmurs or myocardial infarction. Review of Systems General: Reports: 10 or more systems reviewed and unremarkable except in HPI and below Const: Denies: fever, chills, change in appetite or change in weight Eyes: Denies: change in vision ENMT: Denies: nasal discharge or post nasal drip Card: Reports: other Resp: Reports: other GI: Denies: abdominal pain, nausea, vomiting or heartburn/indigestion : Denies: flank pain, painful urination or urinary frequency Musc: Denies: neck pain or back pain Skin/Breast: Denies: rash or itching Neuro: Denies: weakness in extremities or difficulty walking Psych: Denies: mood swings Endo: Denies: cold intolerance or excessive sweating Medications/Allergies Home Medications Medication Instructions Recorded Confirmed Last Taken Type hydroxyzine HCl 25 mg PO TID 07/18/19 07/18/19 07/18/19 12:00 History lithium aspartate 20 mg PO TID 07/18/19 07/18/19 07/18/19 12:00 History Allergies Allergy/AdvReac Type Severity Reaction Status Date / Time bee venom protein (honey bee) Allergy Severe ALGY-Anaphy Verified 07/18/19 23:28 laxis diphenhydramine Allergy ADR-Irritab Verified 07/02/19 13:32 [From Benadryl] le morphine Allergy ADR-Seizure Verified 07/02/19 13:32 PFSH Acute PFSH: Medical History (Updated 07/19/19 @ 07:43 by Shay Martinez MD) Dyslipidemia HTN (hypertension), benign Surgical History History of esophagogastroduodenoscopy (EGD) S/P colonoscopy Family History Mother Hypertension Diabetes Myocardial infarction Grandmother Stroke Father CAD (coronary artery disease) Social History Smoking and tobacco status: current every day smoker cigarettes [ Other cigarette details: OCCASIONAL ] Second hand smoke exposure: No Smoking risk assessment/counseling performed?: No Alcohol intake: current Alcohol intake frequency: holidays/special occasions only Desire information about alcohol rehabilitation?: No Counseling given: No Desire information about substance/drug rehabilitation?: No Counseling given: No Caregiver/support person: Yes Lives independently: No Household members: spouse Current occupational status: employed History of recent travel: No Current gender identity: Male Vitals/I&O/Wt Last Vital Signs Pulse 79 07/18/19 22:07 Resp 16 07/18/19 22:07 BP 123/74 07/18/19 22:07 Pulse Ox 98 07/18/19 22:07 Weight last 48 hrs Weight 170 lb Physical Exam Const: COMMON NORMALS: no apparent distress and oriented x3 GENERAL APPEARANCE: cooperative and comfortable HENMT: COMMON NORMALS: normocephalic, head/scalp atraumatic, nasal mucous membranes and turbinates normal and oropharynx normal HEAD & SCALP: normocephalic and atraumatic NOSE: nasal mucous membranes and turbinates normal Eye: COMMON NORMALS: PERRL and EOMs intact bilaterally PUPIL: Yes PERRL Neck/C-Spine: COMMON NORMALS: full ROM and no JVD Chest: COMMONS NORMALS: inspection of chest normal Resp: COMMON NORMALS: normal respiratory effort, no use of accessory muscles and clear to auscultation bilaterally AUSCULTATION: clear to auscultation bilaterally Cardio: COMMON NORMALS: no JVD, S1 normal heart sound, S2 normal heart sound, no gallops and no murmurs JUGULAR VENOUS DISTENTION: no JVD HEART SOUNDS: S1 normal and S2 normal GI: COMMON NORMALS: normal to inspection, nondistended, normoactive bowel sounds, soft to palpation and no masses PALPATION: Yes soft Extremity: COMMON NORMALS: normal to inspection and no pedal edema Neuro: COMMON NORMALS: oriented x3 Data : 07/18/19 22:05 07/18/19 22:05 A&P Assessment and plan (1) Chest pain: 1. Regarding current presentation, minimal ST lesions are noted involving the inferior leads, on the EMS EKG, and a repeat EKG performed at [facility] was nonspecific and non-diagnostic, but based on ongoing chest discomfort, it was decided to proceed with cardiac catheterization. 2. Risk benefits complications of cardiac arrest including but not limited to severe stroke hematoma formation were explained to the patient seems to understand like to proceed 3. Further recommendation and treatment plans were made after completion of cardiac ablation. 4. Require echocardiogram for LV function evaluation. Status: Acute Qualifiers: Ischemic chest pain type: unstable angina pectoris Code(s): R07.9 - Chest pain, unspecified (2) Gastritis and gastroduodenitis: 1. We will resume home medications including Protonix 40 p.o. twice daily Status: Acute Code(s): K29.70 - Gastritis, unspecified, without bleeding; K29.90 - Gastroduodenitis, unspecified, without bleeding (3) Hypertension: 1. We will monitor blood pressure over the next 1 to 4 hours 2. We will check troponin every 8x3 3. Resume antihypertensive regimen and optimize medication necessary. Status: Acute Code(s): I10 - Essential (primary) hypertension Attestations Medical Necessity Statement*: Based on presentation for ACS/AMI, patient will require 2 night stay in inpatient setting Coding Level of Care Code Acute Glass Vial Filler for [facility] Fwd Exam Comprehensive Diagnoses Chest pain R07.9 Ischemic chest pain type: unstable angina pectoris Gastritis and gastroduodenitis K29.70; K29.90 Hypertension I10
[2019-07-18 23:31] VITALS: BP 123/78
[2019-07-18 23:45] VITALS: BP 136/84; PULSE 71; RESP 23
[2019-07-18] MEDS: temazepam 15 mg Capsule PO (23:58)
[2019-07-19] VITALS (21 sets, daily range): BP systolic 101–126; BP diastolic 65–83; PULSE 56–87; RESP 17–23; TEMP 36.8; O2SAT 92–96
[2019-07-19 00:22] LABS: Amphetamines Screen Urine Negative (Negative); Barbiturates Screen Urine Negative (Negative); Benzodiazepines Screen Urine Positive (Negative); Cocaine Screen Urine Negative (Negative); Opiate Screen Urine Negative (Negative); PCP Screen Urine Negative (Negative); THC Screen Urine Positive (Negative)
[2019-07-19 00:52] LABS: Troponin 5 2HR Delta 0 ABS# (0-10)
[2019-07-19] MEDS: fentaNYL 50 mcg/mL INJ 2mL IVP (01:44)
[2019-07-19 01:54] LABS: Partial Thromboplastin Time 33.7 SECONDS (23.9-36.7)
--- NOTE | 2019-07-19 02:15 | PC.NURSE ---
Patient medicated for pain as ordered pre-procedure for sheath removal. Sheath removed at 0150 per protocol. Hemostasis achieved immediately. Maintained pressure for 20min. Patient tolerated well. No s/s of bleeding or hematoma formation observed. Applied betadine to site. Covered with folded 4x4 and bio-occlusive. Repositioned patient for comfort. Instructed pateint on site care and restrictions. Patient verbalized complete understanding. Patient c/o mild discomfort to site at this time he did state he felt better after repositioning. No other distresses observed.
[2019-07-19] MEDS: ALPRAZolam 0.25 mg Tablet PO (04:01)
--- NOTE | 2019-07-19 04:02 | ECG_ITS ---
Measurements Intervals Vance Rate: 78 P: 171 NJ: 142 QRS: 157 QRSD: 96 T: 149 QT: 353 QTc: 404 Sinus RHYTHM LEFT POSTERIOR FASCICULAR BLOCK [QRS AXIS > 109, INFERIOR Q] ST ELEVATION, CONSIDER INFERIOR INJURY [MARKED ST ELEVATION W/O NORMALLY INFL INFLECTED T WAVE IN II/aVF] Electronically Signed On 07-19-2019 8:50:22 CDT by Shay Martinez [email or web address]
[2019-07-19 04:39] LABS: Troponin 5 6HR Delta 0 ng/L (0-12)
--- NOTE | 2019-07-19 07:04 | PM.PN ---
Subjective Subjective: Interval history: Patient doing well, denies any chest pain shortness of breath. Slept well denies any discomfort involving his groin. Patient significant other at bedside. Explained at length patient's presentation cardiac catheterization findings. Nursing staff present, at this time patient and his significant other denies any further questions. Vitals/I&O/Wt Last Vital Signs Pulse 82 07/19/19 06:00 Resp 17 07/19/19 06:00 BP 106/75 07/19/19 06:00 Pulse Ox 96 07/19/19 02:00 07/18/19 07/19/19 07/19/19 22:59 06:59 14:59 Intake Total 480 / 480 Output Total 500 / 500 Balance - Weight last 48 hrs Weight 170 lb Physical Exam Const: COMMON NORMALS: no apparent distress and oriented x3 GENERAL APPEARANCE: cooperative and comfortable HENMT: COMMON NORMALS: normocephalic, head/scalp atraumatic, nasal mucous membranes and turbinates normal and oropharynx normal HEAD & SCALP: normocephalic and atraumatic NOSE: nasal mucous membranes and turbinates normal Eye: COMMON NORMALS: PERRL and EOMs intact bilaterally PUPIL: Yes PERRL Neck/C-Spine: COMMON NORMALS: full ROM and no JVD Chest: COMMONS NORMALS: inspection of chest normal Resp: COMMON NORMALS: normal respiratory effort, no use of accessory muscles and clear to auscultation bilaterally AUSCULTATION: clear to auscultation bilaterally Cardio: COMMON NORMALS: no JVD, S1 normal heart sound, S2 normal heart sound, no gallops and no murmurs JUGULAR VENOUS DISTENTION: no JVD HEART SOUNDS: S1 normal and S2 normal GI: COMMON NORMALS: normal to inspection, nondistended, normoactive bowel sounds, soft to palpation and no masses PALPATION: Yes soft Extremity: COMMON NORMALS: normal to inspection and no pedal edema Neuro: COMMON NORMALS: oriented x3 Data : 07/18/19 22:05 07/18/19 22:05 A&P Assessment and plan (1) Chest pain: 1. We will restart home medications. 2. Would optimize antianginal regimen, as patient current presentation could be secondary to vasospastic angina. 3. We will continue aspirin 81 mg p.o. once a day, Plavix and have been once a day for 30 days, in addition to continuing ELIAS inhibitor, beta-blockers and statins. 4 Regarding current presentation, based on cardiac arrest and finding, would continue with medical management, and if patient becomes remains asymptomatic may consider cardiac stress testing to evaluate for ischemia involving the anterior territory following which an FFR directed PCI may be considered. These treatment options were discussed with Dr. Knowles who would be the rollway man taking over the care of this patient on an outpatient basis. Status: Acute Qualifiers: Ischemic chest pain type: unstable angina pectoris Code(s): R07.9 - Chest pain, unspecified (2) Hypertension: 1. We will continue to monitor blood pressure and optimize antihypertensive regimen as necessary. Status: Acute Code(s): I10 - Essential (primary) hypertension (3) Gastritis and gastroduodenitis: Status: Acute Code(s): K29.70 - Gastritis, unspecified, without bleeding; K29.90 - Gastroduodenitis, unspecified, without bleeding Attestations Medical Necessity Statement*: Recommended 2 night stay considering presentation with AMI/ACS Coding Level of Care Code Acute General Surgery Physician Assistant for Chg Fwd Exam Comprehensive Diagnoses Chest pain R07.9 Ischemic chest pain type: unstable angina pectoris Hypertension I10 Gastritis and gastroduodenitis K29.70; K29.90
[2019-07-19] MEDS: hyDROXYzine 25 mg Capsule PO (08:27)
[2019-07-19] MEDS: metoprolol tartrate 25 mg Tablet 12.5 MG PO (08:28)
[2019-07-19] MEDS: isosorbide mononitrate ER 30 mg Tablet PO (08:28)
[2019-07-19] MEDS: pregabalin 75 mg Capsule PO (08:28)
[2019-07-19] MEDS: pantoprazole DR 40 mg Tablet PO (08:28)
--- NOTE | 2019-07-19 13:15 | PC.NURSE ---
Pateint ready to be discharged, 2 ivs taken out in tact and covered with 2x2s and tegaderm. patient educated on meds, activity, care of groin puncture site, followup appointment and what to do if bleeding or any increased side effects of meds occur. patient wheeled out to ER exit via wheelchair to go home with significant other via personal vehicle.
--- NOTE | 2019-07-19 23:07 | USCV_ITS ---
Mac Bryan Age: 39 Gender: M : 1980 Exam Date: 07/19/2019 06:29 Ordering Phys: Shay Martinez MD ([email or web address]) Technologist: EMRE GONZALEZ [place] [facility] [place]ST PAIN BP: 117 / 73 HR: 67 Rhythm: Sinus Technical Quality: Adequate MEASUREMENTS (Male / Female) Normal Values 2D ECHO LV Diastolic Diameter PLAX 4.3 cm 4.2 - 5.9 / 3.9 - 5.3 cm LV Systolic Diameter PLAX 2.9 cm IVS Diastolic Thickness 0.9 cm 0.6 - 1.0 / 0.6 - 0.9 cm IVS Systolic Thickness 1.3 cm LVPW Diastolic Thickness 0.9 cm 0.6 - 1.0 / 0.6 - 0.9 cm LVPW Systolic Thickness 1.3 cm LVOT Diameter 2.0 cm LV Ejection Fraction 2D Teich 60.7 % LV Ejection Fraction MOD 2C 68.1 % LV Ejection Fraction 2C AL 68.1 % LA Diameter 2.7 cm LA Width 2.8 cm LA Height 3.9 cm RA Width 3.0 cm RA Height 4.0 cm Aorta at Sinotubular Diameter 2.7 cm M-MODE LV Diastolic Diameter MM 4.4 cm 4.2 - 5.9 / 3.9 - 5.3 cm LV Systolic Diameter MM 2.9 cm LV Ejection Fraction MM Teich 65.7 % IVS Diastolic Thickness MM 0.8 cm 0.6 - 1.0 / 0.6 - 0.9 cm IVS Systolic Thickness MM 1.3 cm LVPW Diastolic Thickness MM 0.9 cm 0.6 - 1.0 / 0.6 - 0.9 cm LVPW Systolic Thickness MM 1.3 cm Aortic Annulus Diameter 3.1 cm LA Ao Ratio MM 0.9 MV E Point Septal Separation 0.5 cm DOPPLER AV Peak Velocity 119.0 cm/s LVOT Peak Velocity 83.0 cm/s AV Area Cont Eq vti 2.2 cm squared AV Area Cont Eq pk 2.2 cm squared MV Area PHT 3.4 cm squared Mitral E to A Ratio 1.3 MV E' Velocity 11.0 cm/s Mitral E to MV E' Ratio 6.3 Mitral E to LV E' Lateral Ratio 5.7 Mitral E to LV E' Septal Ratio 7.2 TV Peak E Velocity 30.0 cm/s Right Atrial Pressure 3.0 mmHg PV Peak Velocity 80.0 cm/s RV Acceleration Time 0.1 s RV Ejection Time 0.3 s RV AcT/ET 0.4 FINDINGS Left Ventricle Normal left ventricular size, systolic function and wall thickness, with no regional wall motion abnormalities. Left ventricular ejection fraction is estimated at 65 %. Anterior wall poorly visualized Right Ventricle Normal right ventricular size and systolic function. Right Atrium Normal right atrial size. Left Atrium Normal left atrial size. Mitral Valve Structurally normal mitral valve. No mitral valve stenosis. Trace mitral valve regurgitation. Aortic Valve Structurally normal trileaflet aortic valve. No aortic valve stenosis. No aortic valve regurgitation. Tricuspid Valve Structurally normal tricuspid valve. Trace tricuspid valve regurgitation. Pulmonic Valve Trace pulmonary valve regurgitation. Pericardium No pericardial or pleural effusion. Aorta Normal size aortic root and proximal ascending aorta. CONCLUSIONS Normal left ventricular size and function with an estimated ejection fraction of 65%. No significant valvular stenosis, or regurgitation No pericardial effusion Derek Martinez MD (Electronically Signed) Final Date: 19 July 2019 08:37 S
== END 2019-07-19 13:15 | disposition home or self-care (01) | DRG 287 ==
LOC: ER 22:09 → CCL 22:23 → CSU 23:07
PROVIDERS: Emergency Medicine; Admitting Provider Internal Medicine Cardiovascular Disease; Emergency Provider Family Medicine; PCP Family Medicine; Visit Provider Internal Medicine Cardiovascular Disease
DX: I20.0 Unstable angina (principal); I10 Essential (primary) hypertension; K29.70 Gastritis, unspecified, without bleeding; E78.5 Hyperlipidemia, unspecified; F17.210 Nicotine dependence, cigarettes, uncomplicated; K29.90 Gastroduodenitis, unspecified, without bleeding; R07.2 Precordial pain
CPT/HCPCS: 12345; 36415; 71045; 80053; 80306; 83735; 84484; 85025; 85610; 85730; 93005; 93010; 93306; 96374; 99282; 99285; J1644; J2001; J2250; J3010

== ENCOUNTER 2019-07-20 21:19 | Emergency (ER) | payer MEDICAID, SELFPAY ==
[2019-07-20 21:21] VITALS: BP 120/87; PULSE 72; RESP 18; TEMP 37.1; O2SAT 96
--- NOTE | 2019-07-20 21:31 | ED_ITS ---
Entered by Danielle Sanchez, acting as scribe for Sofia Gotti MD, MSM Documented by User: Sofia Gotti MD, MSM 08/08/19 21:48 HPI - Chest Pain General: Chief Complaint: Chest Pain Stated Complaint: CHEST PAIN Time Seen by Provider: 07/20/19 21:23 Source: patient Mode of arrival: EMS Limitations: no limitations History of Present Illness: HPI narrative: 39 yo Male presents to ED with complaint of chest pain. Pt states that he had a heart catheterization yesterday and was told there was a blockage found. Pt states that he started having left side chest pain that he got some relief from taking 1 nitro. Pt states that he now has a headache as well and some lightheadedness. Patient was at rest when the pain started. Pain is nonradiating. MD complaint: chest pain Pertinent past history: coronary artery disease and prior MS Onset (ago): hour(s) Timing of current episode: episodic and still present Prior episodes: Yes Onset: during rest Pain location: left chest Pain radiation: none Pain scale (0-10): 6 Quality: similar to prior MS Relieving factors: nitroglycerin Exacerbating factors: nothing Associated symptoms: Reports nausea; Deny dyspnea, fever(s) or palpitations Treatment prior to arrival: nitroglycerin Review of Systems General: Reports: 10 or more systems reviewed and unremarkable except in HPI and below Const: Denies: fever, chills or body aches Eyes: Denies: change in vision or blurry vision ENMT: Denies: throat pain, enlarged tonsils, painful swallowing, hoarseness, mouth pain or swelling of lips/tongue Card: Reports: chest pain and lightheadedness; Denies: palpitations, irregular heart rhythm, edema or swelling of feet/ankles Resp: Denies: shortness of breath, productive cough or non-productive cough GI: Reports: nausea : Denies: flank pain, painful urination, urinary frequency, urinary urgency or urinary hesitancy Musc: Denies: neck pain, back pain or extremity swelling Skin/Breast: Denies: rash, itching or redness Neuro: Denies: headache, numbness in extremities or weakness in extremities Endo: Denies: excessive urination, excessive thirst or tired all the time [facility] ED PFSH: Medical History Dyslipidemia HTN (hypertension), benign Surgical History History of esophagogastroduodenoscopy (EGD) S/P colonoscopy Family History Mother Hypertension Diabetes Myocardial infarction Grandmother Stroke Father CAD (coronary artery disease) Social History Smoking and tobacco status: current every day smoker cigarettes [ Other cigarette details: OCCASIONAL ] Second hand smoke exposure: No Smoking risk assessment/counseling performed?: No Alcohol intake: current Alcohol intake frequency: holidays/special occasions only Desire information about alcohol rehabilitation?: No Counseling given: No Desire information about substance/drug rehabilitation?: No Counseling given: No Caregiver/support person: Yes Lives independently: No Household members: spouse Current occupational status: employed History of recent travel: No Current gender identity: Male Physical Exam Const: COMMON NORMALS: no apparent distress, average body habitus, oriented x3, no limitations, healthy appearing, alert and well nourished HENMT: COMMON NORMALS: normocephalic, head/scalp atraumatic and moist oral mucous membranes HEAD & SCALP: normocephalic and atraumatic Eye: COMMON NORMALS: PERRL, EOMs intact bilaterally, conjunctivae normal and no scleral icterus CONJUNCTIVA: Yes conjunctivae normal PUPIL: Yes PERRL Neck/C-Spine: COMMON NORMALS: full ROM, supple, no meningeal signs, no JVD and no carotid bruits Chest: COMMONS NORMALS: inspection of chest normal and palpation of chest normal Resp: COMMON NORMALS: normal respiratory effort, no retractions, no use of accessory muscles, clear to auscultation bilaterally and percussion normal AUSCULTATION: clear to auscultation bilaterally PERCUSSION: percussion normal Cardio: COMMON NORMALS: no JVD, regular rate, regular rhythm, S1 normal heart sound, S2 normal heart sound, no gallops, no clicks, no murmurs, no rub and peripheral pulses 2+ throughout RATE: regular rate RHYTHM: regular rhythm HEART SOUNDS: S1 normal and S2 normal PERIPHERAL PULSES: pulses 2+ throughout GI: COMMON NORMALS: normal to inspection, nondistended, normoactive bowel sounds, soft to palpation, non-tender, no hepatosplenomegaly, no masses and no bruits PALPATION: Yes soft and Yes no hepatosplenomegaly : COMMON NORMALS: Yes no CVA tenderness BLADDER/KIDNEY EXAM: Yes no CVA tenderness Back/Pelvis: COMMON NORMALS: no CVA tenderness Extremity: COMMON NORMALS: normal to inspection, full ROM, normal capillary refill, no calf tenderness and no pedal edema Neuro: COMMON NORMALS: oriented x3 SENSORIUM/ORIENTATION: Yes alert MENINGEAL SIGNS: Yes no meningeal signs Skin: COMMON NORMALS: no rashes or lesions noted, no wounds, skin turgor normal, no jaundice, no petechiae and no mottling GENERAL SKIN EXAM: no rashes or lesions noted and turgor normal Course 2 Vital Signs: Vital signs: Vital Signs Temperature 98.4 F 07/21/19 01:27 Pulse Rate 63 07/21/19 01:27 Respiratory Rate 16 07/21/19 01:27 Blood Pressure 111/76 07/21/19 01:27 Pulse Oximetry 97 07/21/19 01:27 MDM - Chest Pain Lab Data: Labs: Lab Results 07/20/19 07/20/19 07/20/19 Range/Units 21:37 21:37 21:37 WBC 11.1 H (4.0-10.0) 10^3/ uL RBC 4.89 (4.1-5.3) 10^6/u L Hgb 14.4 (11.7-16.6) g/dL Hct 44.8 (42.0-52.0) % MCV 91.6 (80-94) fL MCH 29.4 (28.0-34.0) pg MCHC 32.1 (30.0-36.0) g/dL RDW 12.7 (12.1-15.1) % Plt Count 284 (130-400) 10^3/c mm MPV 9.8 (7.4-10.4) fL Neut % (Auto) 63.5 % Lymph % (Auto) 28.0 % Page % (Auto) 5.6 % Eos % (Auto) 2.2 % Baso % (Auto) 0.4 % Neut # (Auto) 7.1 (1.8-7.7) 10^3/u L Lymph # (Auto) 3.1 (0.8-4.8) 10^3/u L Page # (Auto) 0.6 (0.2-0.9) 10^3/u L Eos # (Auto) 0.2 (0.0-0.8) 10^3/u L Baso # (Auto) 0.1 (0.0-0.1) 10^3/u L Nucleated RBC % (a uto) 0 % Nucleated RBCs # 0.0 /100WBC PT 14.40 H (10.5-13.3) SECO NDS INR 1.08 (0.8-1.2) Sodium (136-145) mmol/L Potassium (3.5-5.1) mmol/L Chloride (98-107) mmol/L Carbon Dioxide (22-29) mmol/L Anion Gap (5-19) BUN (6-20) mg/dL Creatinine (0.7-1.2) mg/dL GFR Calculation (90-130) mL/min Glucose (65-115) mg/dL Calculated Osmolal ity (285-295) mOsm/k g Calcium (8.5-10.5) mg/dL Total Bilirubin (0.15-1.2) mg/dL AST (0-40) U/L ALT (0-41) U/L Alkaline Phosphata se (40-130) IU/L Troponin T Baselin e 6 (0-15) ng/mL Troponin T 120 Min point [place] (0-15) ng/mL Delta Troponin T (0-10) ABS# NT-Pro-B Natriuret Pep (0-125) pg/mL Total Protein (6.6-8.7) g/dL Albumin (3.5-5.2) g/dL Globulin (1.3-4.6) g/dL Lipase (13-60) U/L Ethyl Alcohol (0-10) mg/dL 07/20/19 07/20/19 Range/Units 21:37 23:40 WBC (4.0-10.0) 10^3/ uL RBC (4.1-5.3) 10^6/u L Hgb (11.7-16.6) g/dL Hct (42.0-52.0) % MCV (80-94) fL MCH (28.0-34.0) pg MCHC (30.0-36.0) g/dL RDW (12.1-15.1) % Plt Count (130-400) 10^3/c mm MPV (7.4-10.4) fL Neut % (Auto) % Lymph % (Auto) % Page % (Auto) % Eos % (Auto) % Baso % (Auto) % Neut # (Auto) (1.8-7.7) 10^3/u L Lymph # (Auto) (0.8-4.8) 10^3/u L Page # (Auto) (0.2-0.9) 10^3/u L Eos # (Auto) (0.0-0.8) 10^3/u L Baso # (Auto) (0.0-0.1) 10^3/u L Nucleated RBC % (a uto) % Nucleated RBCs # /100WBC PT (10.5-13.3) SECO NDS INR (0.8-1.2) Sodium 140 (136-145) mmol/L Potassium 3.9 (3.5-5.1) mmol/L Chloride 100 (98-107) mmol/L Carbon Dioxide 27 (22-29) mmol/L Anion Gap 16.9 (5-19) BUN 10 (6-20) mg/dL Creatinine 1.1 (0.7-1.2) mg/dL GFR Calculation 75.3 L (90-130) mL/min Glucose 87 (65-115) mg/dL Calculated Osmolal ity 285 (285-295) mOsm/k g Calcium 9.8 (8.5-10.5) mg/dL Total Bilirubin 0.4 (0.15-1.2) mg/dL AST 22 (0-40) U/L ALT 44 H (0-41) U/L Alkaline Phosphata se 88 (40-130) IU/L Troponin T Baselin e (0-15) ng/mL Troponin T 120 Min point [place] 6.00 (0-15) ng/mL Delta Troponin T 0 (0-10) ABS# NT-Pro-B Natriuret Pep 12 (0-125) pg/mL Total Protein 7.6 (6.6-8.7) g/dL Albumin 4.5 (3.5-5.2) g/dL Globulin 3.1 (1.3-4.6) g/dL Lipase 36 (13-60) U/L Ethyl Alcohol < 10 (0-10) mg/dL EKG Data^: EKG 1: Attestation: I personally reviewed and interpreted this EKG as follows: EKG interpretation date: 07/20/19 EKG interpretation time: 21:48 Prior EKG tracings: available for review Interpretation: Normal sinus rhythm. Heart rate 76 bpm. Q waves in 1 to aVL and V4 V5 and V6. Normal axis. Discharge Plan Discharge Patient Disposition: Home, Self-Care Clinical Impression: Chest pain Qualifiers: Chest pain type: unspecified Qualified Code(s): R07.9 - Chest pain, unspecified Condition: Stable Prescriptions: No Action pregabalin [Lyrica] 75 mg capsule 75 mg PO BID RF: 0 atorvastatin 40 mg tablet 40 mg PO BEDTIME Qty: 30 RF: 0 hydroxyzine HCl 25 mg Tablet 25 mg PO TID RF: 0 lithium aspartate 20 mg Capsule 20 mg PO TID RF: 0 aspirin 81 mg Tablet,Delayed Release (Dr/Ec) 81 mg PO DAILY Qty: 30 RF: 0 amlodipine 5 mg Tablet 2.5 mg PO DAILY Qty: 30 RF: 0 pantoprazole 40 mg Tablet,Delayed Release (Dr/Ec) 40 mg PO DAILY Qty: 15 RF: 0 isosorbide mononitrate 30 mg tablet extended release 24 hr 15 mg PO DAILY Qty: 30 RF: 0 clopidogrel 75 mg tablet 75 mg PO DAILY 19 Days Qty: 19 RF: 0 Discharge Orders: Discharge Order (Routine); Ordered 07/21/19 Ordered By: Lianne iLu Referrals: Robert Rivera [Primary Care Provider] - Shereen Knowles MD [Physician] - 1-3 days Discharge Diet: Advance as tolerated Discharge Activity: Increase activity as tolerated Patient Instructions: Chest Pain (ED) Activity Restrictions/Additional Instructions: Please return to the ER immediately for any of the signs or symptoms listed on your discharge instruction sheets, worsening/changing of your symptoms, you are not getting better as quickly as expected, or for ANY other cause or concerns. If your pain returns or you develop any new symptoms please return to the ER immediately for recheck. Discharge Date/Time: 07/21/19 01:04 Sign Out Sign Out Data: Patient Sign Out occurred on 07/20/19 at 23:37. Patient's care was discussed, and care was transferred from to Lianne Liu. Coding Level of Care Code ED Shell Reprint Operator for Chg Fwd Exam Comprehensive Documented by User: Lianne Liu 07/21/19 00:37 HPI - Chest Pain General: Chief Complaint: Chest Pain Stated Complaint: CHEST PAIN Time Seen by Provider: 07/20/19 21:23 PFS ED PFSH: Medical History Dyslipidemia HTN (hypertension), benign Surgical History History of esophagogastroduodenoscopy (EGD) S/P colonoscopy Family History Mother Hypertension Diabetes Myocardial infarction Grandmother Stroke Father CAD (coronary artery disease) Social History Smoking and tobacco status: current every day smoker cigarettes [ Other cigarette details: OCCASIONAL ] Second hand smoke exposure: No Smoking risk assessment/counseling performed?: No Alcohol intake: current Alcohol intake frequency: holidays/special occasions only Desire information about alcohol rehabilitation?: No Counseling given: No Desire information about substance/drug rehabilitation?: No Counseling given: No Caregiver/support person: Yes Lives independently: No Household members: spouse Current occupational status: employed History of recent travel: No Current gender identity: Male Course Vital Signs: Vital signs: Vital Signs Temperature 98.4 F 07/21/19 01:27 Pulse Rate 63 07/21/19 01:27 Respiratory Rate 16 07/21/19 01:27 Blood Pressure 111/76 07/21/19 01:27 Pulse Oximetry 97 07/21/19 01:27 MDM - Chest Pain MDM Narrative: Medical decision making narrative: 2299 -Case turned over to me at change of shift from Dr. Marrero Plan at this time as patient has a second normal troponin EKG he will be discharged home. 0035 -patient second troponin and EKG are normal. He still denies having any pain. Per report the patient's heart cath showed only a 50% blockage but no other acute lesions. I reviewed all this plan with the lieutenant general that cathed Mac, the lieutenant general was Dr. Ramirez. He states the patient can go home if his troponins are negative. He can continue the follow-up plan of seeing Dr. Hughes in the outpatient clinic and taking nitroglycerin as needed for pain. I reviewed this plan with the patient and he is agreeable. He declines any further observation or care here at this time and would like to be discharged. Lab Data: Attestation: I reviewed the patient's lab results. Labs: Lab Results 07/20/19 07/20/19 07/20/19 Range/Units 21:37 21:37 21:37 WBC 11.1 H (4.0-10.0) 10^3/ uL RBC 4.89 (4.1-5.3) 10^6/u L Hgb 14.4 (11.7-16.6) g/dL Hct 44.8 (42.0-52.0) % MCV 91.6 (80-94) fL MCH 29.4 (28.0-34.0) pg MCHC 32.1 (30.0-36.0) g/dL RDW 12.7 (12.1-15.1) % Plt Count 284 (130-400) 10^3/c mm MPV 9.8 (7.4-10.4) fL Neut % (Auto) 63.5 % Lymph % (Auto) 28.0 % Page % (Auto) 5.6 % Eos % (Auto) 2.2 % Baso % (Auto) 0.4 % Neut # (Auto) 7.1 (1.8-7.7) 10^3/u L Lymph # (Auto) 3.1 (0.8-4.8) 10^3/u L Page # (Auto) 0.6 (0.2-0.9) 10^3/u L Eos # (Auto) 0.2 (0.0-0.8) 10^3/u L Baso # (Auto) 0.1 (0.0-0.1) 10^3/u L Nucleated RBC % (a uto) 0 % Nucleated RBCs # 0.0 /100WBC PT 14.40 H (10.5-13.3) SECO NDS INR 1.08 (0.8-1.2) Sodium (136-145) mmol/L Potassium (3.5-5.1) mmol/L Chloride (98-107) mmol/L Carbon Dioxide (22-29) mmol/L Anion Gap (5-19) BUN (6-20) mg/dL Creatinine (0.7-1.2) mg/dL GFR Calculation (90-130) mL/min Glucose (65-115) mg/dL Calculated Osmolal ity (285-295) mOsm/k g Calcium (8.5-10.5) mg/dL Total Bilirubin (0.15-1.2) mg/dL AST (0-40) U/L ALT (0-41) U/L Alkaline Phosphata se (40-130) IU/L Troponin T Baselin e 6 (0-15) ng/mL Troponin T 120 Min point [place] (0-15) ng/mL Delta Troponin T (0-10) ABS# NT-Pro-B Natriuret Pep (0-125) pg/mL Total Protein (6.6-8.7) g/dL Albumin (3.5-5.2) g/dL Globulin (1.3-4.6) g/dL Lipase (13-60) U/L Ethyl Alcohol (0-10) mg/dL 07/20/19 07/20/19 Range/Units 21:37 23:40 WBC (4.0-10.0) 10^3/ uL RBC (4.1-5.3) 10^6/u L Hgb (11.7-16.6) g/dL Hct (42.0-52.0) % MCV (80-94) fL MCH (28.0-34.0) pg MCHC (30.0-36.0) g/dL RDW (12.1-15.1) % Plt Count (130-400) 10^3/c mm MPV (7.4-10.4) fL Neut % (Auto) % Lymph % (Auto) % Page % (Auto) % Eos % (Auto) % Baso % (Auto) % Neut # (Auto) (1.8-7.7) 10^3/u L Lymph # (Auto) (0.8-4.8) 10^3/u L Page # (Auto) (0.2-0.9) 10^3/u L Eos # (Auto) (0.0-0.8) 10^3/u L Baso # (Auto) (0.0-0.1) 10^3/u L Nucleated RBC % (a uto) % Nucleated RBCs # /100WBC PT (10.5-13.3) SECO NDS INR (0.8-1.2) Sodium 140 (136-145) mmol/L Potassium 3.9 (3.5-5.1) mmol/L Chloride 100 (98-107) mmol/L Carbon Dioxide 27 (22-29) mmol/L Anion Gap 16.9 (5-19) BUN 10 (6-20) mg/dL Creatinine 1.1 (0.7-1.2) mg/dL GFR Calculation 75.3 L (90-130) mL/min Glucose 87 (65-115) mg/dL Calculated Osmolal ity 285 (285-295) mOsm/k g Calcium 9.8 (8.5-10.5) mg/dL Total Bilirubin 0.4 (0.15-1.2) mg/dL AST 22 (0-40) U/L ALT 44 H (0-41) U/L Alkaline Phosphata se 88 (40-130) IU/L Troponin T Baselin e (0-15) ng/mL Troponin T 120 Min point [place] 6.00 (0-15) ng/mL Delta Troponin T 0 (0-10) ABS# NT-Pro-B Natriuret Pep 12 (0-125) pg/mL Total Protein 7.6 (6.6-8.7) g/dL Albumin 4.5 (3.5-5.2) g/dL Globulin 3.1 (1.3-4.6) g/dL Lipase 36 (13-60) U/L Ethyl Alcohol < 10 (0-10) mg/dL Imaging Data^: CXR: My impression: No acute cardiopulmonary findings. EKG Data^: EKG 2: Attestation: I personally reviewed and interpreted this EKG as follows: EKG interpretation date: 07/21/19 EKG interpretation time: 00:18 Interpretation: Sinus bradycardia 55 beats a minute, no acute ST or T wave changes. Discharge Plan Discharge Patient Disposition: Home, Self-Care Clinical Impression: Chest pain Qualifiers: Chest pain type: unspecified Qualified Code(s): R07.9 - Chest pain, unspecified Condition: Stable Prescriptions: No Action pregabalin [Lyrica] 75 mg capsule 75 mg PO BID RF: 0 atorvastatin 40 mg tablet 40 mg PO BEDTIME Qty: 30 RF: 0 hydroxyzine HCl 25 mg Tablet 25 mg PO TID RF: 0 lithium aspartate 20 mg Capsule 20 mg PO TID RF: 0 aspirin 81 mg Tablet,Delayed Release (Dr/Ec) 81 mg PO DAILY Qty: 30 RF: 0 amlodipine 5 mg Tablet 2.5 mg PO DAILY Qty: 30 RF: 0 pantoprazole 40 mg Tablet,Delayed Release (Dr/Ec) 40 mg PO DAILY Qty: 15 RF: 0 isosorbide mononitrate 30 mg tablet extended release 24 hr 15 mg PO DAILY Qty: 30 RF: 0 clopidogrel 75 mg tablet 75 mg PO DAILY 19 Days Qty: 19 RF: 0 Discharge Orders: Discharge Order (Routine); Ordered 07/21/19 Ordered By: Lianne Liu Referrals: Robert Rivera [Primary Care Provider] - Shereen Knowles MD [Physician] - 1-3 days Discharge Diet: Advance as tolerated Discharge Activity: Increase activity as tolerated Patient Instructions: Chest Pain (ED) Activity Restrictions/Additional Instructions: Please return to the ER immediately for any of the signs or symptoms listed on your discharge instruction sheets, worsening/changing of your symptoms, you are not getting better as quickly as expected, or for ANY other cause or concerns. If your pain returns or you develop any new symptoms please return to the ER immediately for recheck. Discharge Date/Time: 07/21/19 01:04 Sign Out Sign Out Data: Patient Sign Out occurred on 07/20/19 at 23:37. Patient's care was discussed, and care was transferred from to Lianne Liu. Coding Level of Care Code ED Shell Reprint Operator for Chg Fwd Exam Comprehensive The documentation recorded by the Laura lyon Carmen, accurately reflects the service I personally performed and the decisions made by me, Sofia Gotti MD, [facility] [place] Jul 20, 2019 21:19
--- NOTE | 2019-07-20 21:32 | ECG_ITS ---
Measurements Intervals [place] Rate: 76 P: -9 MS: 132 QRS: 15 QRSD: 114 T: 1 QT: 359 QTc: 405 SINUS RHYTHM POSSIBLE LATERAL MYOCARDIAL INFARCTION , PROBABLY OLD [30 ms Q WAVE IN I/ I/aVL/V5/V6] Compared to ECG 07/18/2019 22:00:25 Left posterior fascicular block no longer present ST (T wave) deviation no longer present Myocardial infarct finding still present Electronically Signed On 07-21-2019 9:11:53 CDT by Shay Martinez [id number]
--- NOTE | 2019-07-20 21:39 | XR_ITS ---
WS: [id number] XR chest 2V* [id number] REASON FOR EXAM: chest pain FINDINGS: Heart and mediastinal interfaces normal. The lung chance are well aerated. No pneumonia, pleural effusion, pulmonary edema, No pneumothorax. The hilum and apices normal. No osseous abnormalities. XR/XR chest 2V* [id number] IMPRESSION: Negative chest for active pathology.
[2019-07-20 21:51] LABS: Basophils # 0.1 10^3/uL (0.0-0.1); Basophils % 0.4 %; Eosinophils # 0.2 10^3/uL (0.0-0.8); Eosinophils % 2.2 %; Hematocrit 44.8 % (42.0-52.0); Hemoglobin 14.4 g/dL (11.7-16.6); Lymphocytes # 3.1 10^3/uL (0.8-4.8); Mean Corpuscular HGB Conc 32.1 g/dL (30.0-36.0); Mean Corpuscular Hemoglobin 29.4 pg (28.0-34.0); Mean Corpuscular Volume 91.6 fL (80-94); Mean Platelet Volume 9.8 fL (7.4-10.4); Monocytes # 0.6 10^3/uL (0.2-0.9); Monocytes % 5.6 %; Neutrophils # 7.1 10^3/uL (1.8-7.7); Neutrophils % 63.5 %; Nucleated Red Blood Cells % 0 %; Platelet Count 284 10^3/cmm (130-400); Red Blood Count 4.89 10^6/uL (4.1-5.3); Red Cell Distribution Width 12.7 % (12.1-15.1); White Blood Count 11.1 10^3/uL (4.0-10.0)
[2019-07-20 21:59] LABS: INR 1.08 (0.8-1.2)
[2019-07-20 22:07] LABS: Troponin(5th) Baseline 6 ng/mL (0-15)
[2019-07-20 22:15] LABS: Alanine Aminotransferase 44 U/L (0-41); Albumin Level 4.5 g/dL (3.5-5.2); Alcohol Level < 10 mg/dL (0-10); Alkaline Phosphatase 88 IU/L (40-130); Anion Gap 16.9 (5-19); Aspartate Amino Transferase 22 U/L (0-40); Blood Urea Nitrogen 10 mg/dL (6-20); Calcium 9.8 mg/dL (8.5-10.5); Carbon Dioxide 27 mmol/L (22-29); Chloride 100 mmol/L (98-107); Globulin 3.1 g/dL (1.3-4.6); Glomerular Filtration Rate 75.3 mL/min (90-130); Glucose 87 mg/dL (65-115); Lipase 36 U/L (13-60); NT Pro B Type Natriuretic Pept 12 pg/mL (0-125); Osmolality Calculated 285 mOsm/kg (285-295); Potassium 3.9 mmol/L (3.5-5.1); Sodium 140 mmol/L (136-145); Total Bilirubin 0.4 mg/dL (0.15-1.2); Total Protein 7.6 g/dL (6.6-8.7)
[2019-07-20] MEDS: acetaminophen 325 mg Tablet 650 MG PO (22:26)
[2019-07-20 23:39] VITALS: RESP 17; O2SAT 98
[2019-07-20] MEDS: fentaNYL 50 mcg/mL INJ 2mL IVP (23:39)
[2019-07-21 00:09] LABS: Troponin 5 2HR Delta 0 ABS# (0-10)
[2019-07-21 01:27] VITALS: BP 111/76; PULSE 63; RESP 16; TEMP 36.9; O2SAT 97
--- NOTE | 2019-07-21 03:32 | ECG_ITS ---
Measurements Intervals [place] Rate: 55 P: 37 MT: 149 QRS: 22 QRSD: 109 T: 22 QT: 403 QTc: 386 SINUS BRADYCARDIA NONSPECIFIC T-WAVE ABNORMALITY Compared to ECG 07/18/2019 22:00:25 T-wave abnormality now present Sinus rhythm no longer present Left posterior fascicular block no longer present ST (T wave) deviation no longer present Myocardial infarct finding no longer present Electronically Signed On 07-21-2019 9:12:39 CDT by Shay Martinez [id number]
== END 2019-07-21 01:04 | disposition home or self-care (01) ==
PROVIDERS: Family Medicine; Emergency Provider Emergency Medicine; PCP Family Medicine
DX: R07.9 Chest pain, unspecified (principal); I25.10 Atherosclerotic heart disease of native coronary artery without angina pectoris; I25.2 Old myocardial infarction; E78.5 Hyperlipidemia, unspecified; I10 Essential (primary) hypertension; F17.210 Nicotine dependence, cigarettes, uncomplicated; Z82.49 Family history of ischemic heart disease and other diseases of the circulatory system
CPT/HCPCS: 12345; 71046; 80053; 80307; 83690; 83880; 84484; 85025; 85610; 93005; 93010; 96374; 96375; 99282; 99284; J3010

== ENCOUNTER 2019-07-26 07:45 | Outpatient (CLI) | payer MEDICAID, SELFPAY ==
[2019-07-26 08:19] VITALS: BMI 26.6
--- NOTE | 2019-07-26 08:27 | ECG_ITS ---
NAME OF STUDY: LEXISCAN SESTAMIBI STRESS TEST INDICATION: Chest Pain; Coronary Artery Disease PROCEDURE: At the baseline, the blood pressure was 133/67 mmHg, oxygen saturation 96% with a heart rate of 58 bpm. The electrocardiogram showed sinus bradycardia, normal axis with normal ST and T's. The Lexiscan was infused over a period of 20 seconds. A total of 0.4 milligrams of Lexiscan was infused. The stress phase was continued for a total of 5 minutes. Heart rate at the end of the stress phase was 78 bpm, oxygen saturation 96% with a blood pressure 107/67 mmHg. The EKG at the peak infusion revealed sinus rhythm with no significant ST-T wave changes. Sestamibi was injected 20 seconds after the Lexiscan infusion. Blood pressure at the end of the recovery phase was 104/70 mmHg, oxygen saturation 96% with a heart rate of 66 beats per minute. CONCLUSION: 1. Normal EKG response to LexiScan infusion. 2. No LexiScan induced chest pain or cardiac arrhythmia. 3. Normal blood pressure and heart rate response. 4. Sestamibi/sestamibi perfusion scan pending; see separate report. Electronically Signed On 07-28-2019 12:55:19 CDT by Shereen Knowles M.D. [id number]
--- NOTE | 2019-07-26 08:28 | NMCV_ITS ---
NM angus perf SPECT r/s* [id number] Mac Bryan Age: 39 Gender: M : 1980 Exam Date: 07/26/2019 09:10 Ordering Phys: Shereen Knowles MD ([email or web address]) Technologist: ZOYA Aleman Exam Location: [facility] Indications: CHEST PAIN STRESS TEST Please see separate stress test report in [facility] for full findings IMAGE PROTOCOL Rest/Stress 1 Lexiscan Day Radiopharmaceutical Dose (mCi) Administration Site Administered by Rest: Tc-99m 10.7 IV ZOYA Aleman Sestamibi Stress:Tc-99m 32.9 IV ZOYA Aleman Sestamibi Rest: 26-Jul-2019 60 Discovery 630 Stress: 26-Jul-2019 30 Discovery 630 0.4mg Lexiscan. Images obtained in supine and prone position. SPECT RESULTS Technical Quality: Excellent Raw Data Analysis: Normal Image Corrections: Patient motion artifact - motion correction applied to prone images. Summed Stress Score: 0 Summed Rest Score: 0 Summed Difference Score: 0 PERFUSION FINDINGS SPECT images demonstrate homogeneous tracer distribution throughout the myocardium. FUNCTIONAL RESULTS (calculated via Gated SPECT) Stress Image LV EF (%): 60 Stress EDV (mL):96 TID: 1 Stress ESV (mL):38 FUNCTIONAL FINDINGS: The left ventricle is normal in size. Transient Ischemia Dilatation of 1. There is normal left ventricular systolic function. The left ventricular ejection fraction is normal with a value of 60%. There is normal left ventricular wall thickening. IMPRESSIONS 1. Myocardial perfusion imaging is normal. 2. Overall left ventricular systolic function is normal without regional wall motion abnormalities. 3. The left ventricular ejection fraction is normal with a value of 60%. 4. This study suggests a low likelihood of angiographically significant coronary artery disease. Shereen Knowles MD (Electronically Signed) Final Date: 27 July 2019 12:11 S
[2019-07-26] MEDS: regadenoson 0.4 Mg/5 ml Syringe IVP (09:47)
[2019-07-26 10:30] VITALS: BP 104/67; PULSE 67
== END 2019-07-26 07:46 | disposition home or self-care (01) ==
LOC: CDL 07:47
PROVIDERS: Family Provider Family Medicine; PCP Family Medicine; Visit Provider Internal Medicine Cardiovascular Disease
DX: I25.10 Atherosclerotic heart disease of native coronary artery without angina pectoris (principal); R07.9 Chest pain, unspecified
CPT/HCPCS: 78452; 93017; A9500; J2785

== ENCOUNTER 2019-07-28 18:13 | Observation (INO) | payer MEDICAID, SELFPAY ==
[2019-07-28 18:14] VITALS: BP 101/71; PULSE 49; RESP 18; TEMP 36.9; O2SAT 98; BMI 26.6
--- NOTE | 2019-07-28 18:16 | ECG_ITS ---
Measurements Intervals [place] Rate: 43 P: 11 [place]: 130 QRS: 34 QRSD: 102 T: 37 QT: 386 QTc: 329 SINUS BRADYCARDIA WITH SINUS ARRHYTHMIA Compared to ECG 07/21/2019 00:18:34 T-wave abnormality no longer present Electronically Signed On 07-29-2019 18:19:35 CDT by Shereen Knowles M.D. [id number]
[2019-07-28 18:29] LABS: Basophils % 0.5 %; Eosinophils # 0.2 10^3/uL (0.0-0.8); Eosinophils % 1.9 %; Hematocrit 41.4 % (42.0-52.0); Hemoglobin 13.2 g/dL (11.7-16.6); Lymphocytes # 2.8 10^3/uL (0.8-4.8); Lymphocytes % 33.3 %; Mean Corpuscular HGB Conc 31.9 g/dL (30.0-36.0); Mean Corpuscular Hemoglobin 29.2 pg (28.0-34.0); Mean Corpuscular Volume 91.6 fL (80-94); Mean Platelet Volume 9.6 fL (7.4-10.4); Monocytes # 0.5 10^3/uL (0.2-0.9); Monocytes % 5.8 %; Neutrophils # 4.8 10^3/uL (1.8-7.7); Neutrophils % 58.4 %; Nucleated Red Blood Cells % 0 %; Platelet Count 274 10^3/cmm (130-400); Red Blood Count 4.52 10^6/uL (4.1-5.3); Red Cell Distribution Width 12.7 % (12.1-15.1); White Blood Count 8.3 10^3/uL (4.0-10.0)
[2019-07-28] MEDS: aspirin 81 mg Chew Tablet 324 MG PO (18:31)
[2019-07-28] MEDS: ondansetron 2 mg/ML SDV 2 mL 4 MG IVP (18:32)
--- NOTE | 2019-07-28 18:56 | PC.NURSE ---
nitro held due to low bp emd informed
[2019-07-28 19:02] LABS: Alanine Aminotransferase 28 U/L (0-41); Albumin Level 4.3 g/dL (3.5-5.2); Alkaline Phosphatase 80 IU/L (40-130); Anion Gap 15.1 (5-19); Aspartate Amino Transferase 19 U/L (0-40); Blood Urea Nitrogen 12 mg/dL (6-20); Calcium 9.2 mg/dL (8.5-10.5); Carbon Dioxide 27 mmol/L (22-29); Chloride 107 mmol/L (98-107); Globulin 2.6 g/dL (1.3-4.6); Glomerular Filtration Rate 75.3 mL/min (90-130); Glucose 58 mg/dL (65-115); Lipase 71 U/L (13-60); Osmolality Calculated 294 mOsm/kg (285-295); Potassium 4.1 mmol/L (3.5-5.1); Sodium 145 mmol/L (136-145); Total Bilirubin 0.3 mg/dL (0.15-1.2); Total Protein 6.9 g/dL (6.6-8.7)
[2019-07-28 19:03] LABS: Troponin(5th) Baseline 6 ng/mL (0-15)
--- NOTE | 2019-07-28 19:13 | PC.NURSE ---
Pt states he is having an extreme headache rating 10/10 and is requesting pain meds
--- NOTE | 2019-07-28 19:16 | ED_ITS ---
HPI - Chest Pain General: Chief Complaint: Chest Pain Stated Complaint: chest pain Time Seen by Provider: 07/28/19 18:15 History of Present Illness: HPI narrative: Mac is a 39-year-old male who comes in complaining of chest pain. He states the pain began when he was at rest at home. He states this feels similar to when he had heart problems in the past. Of note the patient had a STEMI earlier this month was proved to be due to vasospasm. He has had no stents. This is the patient's second visit for chest pain since that time. He otherwise denies any complaints or concerns or any other associated symptoms with this chest pain. Of note the patient is found to be bradycardic and mildly hypotensive. He denies taking any extra beta-blockers today. Associated symptoms: Deny abdominal pain, diaphoresis, dyspnea, fever(s), nausea, palpitations, syncope or vomiting Review of Systems General: Reports: other (negative unless marked) Const: Denies: fever, chills, body aches, fatigue, malaise or diaphoresis Eyes: Denies: change in vision or blurry vision ENMT: Denies: throat pain, painful swallowing, hoarseness, ear pain, ear discharge, Change in hearing or nasal discharge Card: Reports: chest pain; Denies: palpitations, irregular heart rhythm, syncope, pre-syncope, shortness of breath on exertion or shortness of breath when lying down Resp: Denies: shortness of breath, productive cough, non-productive cough, wheezing, coughing up blood or chest congestion GI: Denies: abdominal pain, nausea, vomiting, vomiting blood, coffee grounds in vomit, diarrhea, constipation, cramping, blood in stool or black tarry stool : Denies: flank pain, difficulty urinating, painful urination, urinary frequency, urinary urgency, decreased urine ouput, urinary incontinence or blood in urine Musc: Denies: neck pain, back pain, extremity pain, extremity swelling, joint pain, joint swelling, joint warmth or joint stiffness Skin/Breast: Denies: rash, skin tenderness or yellow skin Neuro: Denies: headache, numbness in extremities, weakness in extremities, changes in sensation, lack of coordination, difficulty walking, dizziness, vertigo or confusion Endo: Denies: excessive thirst, tired all the time, cold intolerance, excessive sweating, flushing or hot flashes Zev/Lymph: Denies: easy bruising, easy bleeding, petechiae or enlarged lymph nodes All/Imm: Denies: hives, throat swelling, tongue swelling, facial swelling or acute wheezing PFSH ED PFSH: Medical History Chronic diarrhea Coronary disease Dyslipidemia Guillain-Paterson H. pylori infection Heart murmur HTN (hypertension), benign Single vessel coronary disease Vasospastic angina Conclusions 1. Nonobstructive coronary disease. 2. Normal LV function EF of 55%. There is mild coronary artery disease with one vessel disease. Anterior and inferior patel are normal. Normal left ventricular systolic function. Ejection fraction of 55%. Surgical History History of esophagogastroduodenoscopy (EGD) S/P colonoscopy S/P hernia repair Family History Mother Hypertension Diabetes Myocardial infarction Grandmother Stroke Father CAD (coronary artery disease) Social History Smoking and tobacco status: current every day smoker cigarettes [ Other cigarette details: OCCASIONAL ] Second hand smoke exposure: No Smoking risk assessment/counseling performed?: No Alcohol intake: current Alcohol intake frequency: holidays/special occasions only Desire information about alcohol rehabilitation?: No Counseling given: No Desire information about substance/drug rehabilitation?: No Counseling given: No Caregiver/support person: Yes Lives independently: No Household members: spouse Current occupational status: employed History of recent travel: No Current gender identity: Male Physical Exam Const: COMMON NORMALS: no apparent distress, oriented x3, no limitations, healthy appearing and well nourished EXAM LIMITATIONS: no altered mental status GENERAL APPEARANCE: cooperative, well kempt and well developed ORIENTATION/CONSCIOUSNESS: Yes awake HENMT: COMMON NORMALS: normocephalic, head/scalp atraumatic, hearing grossly normal bilaterally, external ears normal, EAC's normal, external nose normal and moist oral mucous membranes HEAD & SCALP: normal to inspection, normocephalic and atraumatic FACE & SINUS: normal facial exam and face symmetric NOSE: external nose normal and nares normal EXTERNAL EAR: Yes external ears normal EXTERNAL AUDITORY CANAL: EAC's normal MOUTH: oral and palatal mucosa normal and tongue normal Eye: COMMON NORMALS: PERRL, EOMs intact bilaterally, conjunctivae normal and no scleral icterus GENERAL EYE: normal appearance of both eyes and normal light reflex CONJUNCTIVA: Yes conjunctivae normal SCLERA: sclerae normal CORNEA: Yes corneas normal PUPIL: Yes PERRL DIRECT OPHTHALMOSCOPY: Yes normal light reflex Neck/C-Spine: COMMON NORMALS: full ROM, no lymphadenopathy, supple, no meningeal signs and no JVD GENERAL: Yes normal visual inspection and Yes t rachea midline CERVICAL SPINE: Yes cervical ROM normal Chest: COMMONS NORMALS: inspection of chest normal and palpation of chest normal Resp: COMMON NORMALS: normal respiratory effort, no retractions, no use of accessory muscles and clear to auscultation bilaterally EFFORT & INSPECTION: Yes able to speak in complete sentences AUSCULTATION: clear to auscultation bilaterally Cardio: COMMON NORMALS: no JVD, regular rate, regular rhythm, S1 normal heart sound, S2 normal heart sound, no gallops, no clicks, no murmurs and no rub JUGULAR VENOUS DISTENTION: no JVD RATE: regular rate RHYTHM: regular rhythm HEART SOUNDS: S1 normal and S2 normal GI: COMMON NORMALS: soft to palpation, non-tender, no hepatosplenomegaly and no masses INSPECTION: Yes normal to inspection PALPATION: Yes soft and Yes no hepatosplenomegaly : COMMON NORMALS: Yes no CVA tenderness BLADDER/KIDNEY EXAM: Yes no CVA t enderness Back/Pelvis: COMMON NORMALS: no CVA tenderness, thoracic and lumbar spine normal to inspection, no thoracic nor lumbar tenderness and thoraco-lumbar ROM normal Extremity: COMMON NORMALS: normal to inspection, full ROM, normal capillary refill, no joint enlargement, no clubbing, cyanosis or edema and no calf tenderness Neuro: COMMON NORMALS: oriented x3, CN's II-XII intact bilaterally, moves all extremities, no focal motor deficits and no sensory deficits noted MENINGEAL SIGNS: Yes no meningeal signs Psych: COMMON NORMALS: mental status grossly normal, thought process normal, cooperative, affect normal, speech normal and activity/motor behavior normal APPEARANCE: Yes well kempt SPEECH: Yes normal speech THOUGHT PROCESS: normal thought process Skin: COMMON NORMALS: no rashes or lesions noted, skin turgor normal, no jaundice, no petechiae and no mottling GENERAL SKIN EXAM: no rashes or lesions noted and turgor normal Course Vital Signs: Vital signs: Vital Signs Temperature 98.2 F 07/29/19 13:17 Pulse Rate 66 07/29/19 13:17 Respiratory Rate 19 H 07/29/19 13:17 Blood Pressure 110/62 07/29/19 13:17 Pulse Oximetry 96 07/29/19 13:17 MDM - Chest Pain MDM Narrative: Medical decision making narrative: Mac is a 39-year-old male comes in with chest pain. Cardiac enzymes are negative EKG_normal x2. I am concerned though as he has bradycardia and hypotension. I reviewed the case in full with Drs. Hughes and Art, they will consult and admit respectively. Lab Data: Labs: Lab Results 07/28/19 07/28/19 07/28/19 Range/Units 18:21 18:21 18:21 WBC 8.3 (4.0-10.0) 10^3/ uL RBC 4.52 (4.1-5.3) 10^6/u L Hgb 13.2 (11.7-16.6) g/dL Hct 41.4 L (42.0-52.0) % MCV 91.6 (80-94) fL MCH 29.2 (28.0-34.0) pg MCHC 31.9 (30.0-36.0) g/dL RDW 12.7 (12.1-15.1) % Plt Count 274 (130-400) 10^3/c mm MPV 9.6 (7.4-10.4) fL Neut % (Auto) 58.4 % Lymph % (Auto) 33.3 % Heard % (Auto) 5.8 % Eos % (Auto) 1.9 % Baso % (Auto) 0.5 % Neut # (Auto) 4.8 (1.8-7.7) 10^3/u L Lymph # (Auto) 2.8 (0.8-4.8) 10^3/u L Heard # (Auto) 0.5 (0.2-0.9) 10^3/u L Eos # (Auto) 0.2 (0.0-0.8) 10^3/u L Baso # (Auto) 0.0 (0.0-0.1) 10^3/u L Nucleated RBC % (a uto) 0 % Nucleated RBCs # 0.0 /100WBC Sodium 145 (136-145) mmol/L Potassium 4.1 (3.5-5.1) mmol/L Chloride 107 (98-107) mmol/L Carbon Dioxide 27 (22-29) mmol/L Anion Gap 15.1 (5-19) BUN 12 (6-20) mg/dL Creatinine 1.1 (0.7-1.2) mg/dL GFR Calculation 75.3 L (90-130) mL/min Glucose 58 L (65-115) mg/dL POC Glucose (70-110) mg/dL Calculated Osmolal ity 294 (285-295) mOsm/k g Calcium 9.2 (8.5-10.5) mg/dL Total Bilirubin 0.3 (0.15-1.2) mg/dL AST 19 (0-40) U/L ALT 28 (0-41) U/L Alkaline Phosphata se 80 (40-130) IU/L Troponin T Baselin e 6 (0-15) ng/mL Troponin T 120 Min [place] (0-15) ng/mL Delta Troponin T (0-10) ABS# Total Protein 6.9 (6.6-8.7) g/dL Albumin 4.3 (3.5-5.2) g/dL Globulin 2.6 (1.3-4.6) g/dL Lipase 71 H (13-60) U/L TSH (0.27-4.20) uIU/ mL Urine Opiates Scre en (Negative) ng/mL Ur Barbiturates Sc reen (Negative) ng/mL Ur Phencyclidine S crn (Negative) ng/mL Ur Amphetamines Sc reen (Negative) ng/mL U Benzodiazepines Scrn (Negative) ng/mL Ivy (0.6-1.2) mmol/L Urine Cocaine Scre en (Negative) ng/mL U Marijuana (THC) Screen (Negative) ng/mL 07/28/19 07/28/19 07/28/19 Range/Units 18:21 20:21 20:21 WBC (4.0-10.0) 10^3/ uL RBC (4.1-5.3) 10^6/u L Hgb (11.7-16.6) g/dL Hct (42.0-52.0) % MCV (80-94) fL MCH (28.0-34.0) pg MCHC (30.0-36.0) g/dL RDW (12.1-15.1) % Plt Count (130-400) 10^3/c mm MPV (7.4-10.4) fL Neut % (Auto) % Lymph % (Auto) % Heard % (Auto) % Eos % (Auto) % Baso % (Auto) % Neut # (Auto) (1.8-7.7) 10^3/u L Lymph # (Auto) (0.8-4.8) 10^3/u L Heard # (Auto) (0.2-0.9) 10^3/u L Eos # (Auto) (0.0-0.8) 10^3/u L Baso # (Auto) (0.0-0.1) 10^3/u L Nucleated RBC % (a uto) % Nucleated RBCs # /100WBC Sodium (136-145) mmol/L Potassium (3.5-5.1) mmol/L Chloride (98-107) mmol/L Carbon Dioxide (22-29) mmol/L Anion Gap (5-19) BUN (6-20) mg/dL Creatinine (0.7-1.2) mg/dL GFR Calculation (90-130) mL/min Glucose (65-115) mg/dL POC Glucose (70-110) mg/dL Calculated Osmolal ity (285-295) mOsm/k g Calcium (8.5-10.5) mg/dL Total Bilirubin (0.15-1.2) mg/dL AST (0-40) U/L ALT (0-41) U/L Alkaline Phosphata se (40-130) IU/L Troponin T Baselin e (0-15) ng/mL Troponin T 120 Min [place] 6.00 (0-15) ng/mL Delta Troponin T 0 (0-10) ABS# Total Protein (6.6-8.7) g/dL Albumin (3.5-5.2) g/dL Globulin (1.3-4.6) g/dL Lipase (13-60) U/L TSH 0.91 (0.27-4.20) uIU/ mL Urine Opiates Scre en (Negative) ng/mL Ur Barbiturates Sc reen (Negative) ng/mL Ur Phencyclidine S crn (Negative) ng/mL Ur Amphetamines Sc reen (Negative) ng/mL U Benzodiazepines Scrn (Negative) ng/mL Ivy 0.1 L (0.6-1.2) mmol/L Urine Cocaine Scre en (Negative) ng/mL U Marijuana (THC) Screen (Negative) ng/mL 07/28/19 07/28/19 Range/Units 20:30 21:40 WBC (4.0-10.0) 10^3/ uL RBC (4.1-5.3) 10^6/u L Hgb (11.7-16.6) g/dL Hct (42.0-52.0) % MCV (80-94) fL MCH (28.0-34.0) pg MCHC (30.0-36.0) g/dL RDW (12.1-15.1) % Plt Count (130-400) 10^3/c mm MPV (7.4-10.4) fL Neut % (Auto) % Lymph % (Auto) % Heard % (Auto) % Eos % (Auto) % Baso % (Auto) % Neut # (Auto) (1.8-7.7) 10^3/u L Lymph # (Auto) (0.8-4.8) 10^3/u L Heard # (Auto) (0.2-0.9) 10^3/u L Eos # (Auto) (0.0-0.8) 10^3/u L Baso # (Auto) (0.0-0.1) 10^3/u L Nucleated RBC % (a uto) % Nucleated RBCs # /100WBC Sodium (136-145) mmol/L Potassium (3.5-5.1) mmol/L Chloride (98-107) mmol/L Carbon Dioxide (22-29) mmol/L Anion Gap (5-19) BUN (6-20) mg/dL Creatinine (0.7-1.2) mg/dL GFR Calculation (90-130) mL/min Glucose (65-115) mg/dL POC Glucose 93 (70-110) mg/dL Calculated Osmolal ity (285-295) mOsm/k g Calcium (8.5-10.5) mg/dL Total Bilirubin (0.15-1.2) mg/dL AST (0-40) U/L ALT (0-41) U/L Alkaline Phosphata se (40-130) IU/L Troponin T Baselin e (0-15) ng/mL Troponin T 120 Min [place] (0-15) ng/mL Delta Troponin T (0-10) ABS# Total Protein (6.6-8.7) g/dL Albumin (3.5-5.2) g/dL Globulin (1.3-4.6) g/dL Lipase (13-60) U/L TSH (0.27-4.20) uIU/ mL Urine Opiates Scre en Negative (Negative) ng/mL Ur Barbiturates Sc reen Negative (Negative) ng/mL Ur Phencyclidine S crn Negative (Negative) ng/mL Ur Amphetamines Sc reen Negative (Negative) ng/mL U Benzodiazepines Scrn Positive H (Negative) ng/mL Ivy (0.6-1.2) mmol/L Urine Cocaine Scre en Negative (Negative) ng/mL U Marijuana (THC) Screen Negative (Negative) ng/mL Imaging Data^: CXR: My impression: No acute cardiopulmonary findings. EKG Data^: EKG 1: Attestation: I personally reviewed and interpreted this EKG as follows: EKG interpretation date: 07/28/19 EKG interpretation time: 18:24 Interpretation: Normal sinus rhythm at 43 beats a minute, no acute ST or T wave changes. EKG 2: Attestation: I personally reviewed and interpreted this EKG as follows: EKG interpretation date: 07/28/19 EKG interpretation time: 20:30 Interpretation: Normal sinus rhythm at 41 beats a minute, nonspecific ST-T wave changes. Discharge Plan Discharge Patient Disposition: Placed in Observation Admit Provider: Sandy Cordova Clinical Impression: Sinus bradycardia, Acute hypotension Chest pain Qualifiers: Chest pain type: unspecified Qualified Code(s): R07.9 - Chest pain, unspecified Condition: Stable Referrals: Shereen Knowles MD [Physician] - (You have a cardiology followup with Dr. Knowles at [facility] on Monday, August 11 at 9:00am. Any questions or appointment changes, please call them at [phone]) Discharge Diet: Cardiac Discharge Activity: Resume usual activity Patient Instructions: Bradycardia, Aspirin (By mouth), Amlodipine (By mouth), Chest Pain (DC) Additional Instructions: Amlodipine 2.5 mg has been added, Imdur has been decreased to 15 mg daily, Lopressor has been discontinued for now, lisinopril has been discontinued for no w. Keep extensive log of blood pressure and heart rate and bring for the next follow-up with Dr. Knowles in 2 weeks. Take aspirin, Plavix, statin daily. Stop Plavix on August 16. 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
[2019-07-28] MEDS: sodium chloride 0.9% 1,000 ML 999 ML IV ×2 (19:35→21:32)
[2019-07-28] MEDS: acetaminophen 500 mg Tablet 1000 MG PO (19:35)
--- NOTE | 2019-07-28 20:16 | ECG_ITS ---
Measurements Intervals [place] Rate: 41 P: 2 MS: 133 QRS: 31 QRSD: 101 T: 28 QT: 422 QTc: 351 SINUS BRADYCARDIA NONSPECIFIC T-WAVE ABNORMALITY Compared to ECG 07/21/2019 00:18:34 No significant changes Electronically Signed On 07-29-2019 18:33:26 CDT by Shereen Knowles M.D. [id number]
[2019-07-28 20:45] LABS: Lithium 0.1 mmol/L (0.6-1.2)
[2019-07-28 20:55] LABS: Amphetamines Screen Urine Negative (Negative); Barbiturates Screen Urine Negative (Negative); Benzodiazepines Screen Urine Positive (Negative); Cocaine Screen Urine Negative (Negative); Opiate Screen Urine Negative (Negative); PCP Screen Urine Negative (Negative); THC Screen Urine Negative (Negative)
--- NOTE | 2019-07-28 20:56 | XR_ITS ---
WS: [id number] CHEST XRAY TECHNIQUE: Portable chest. CLINICAL INFORMATION: cough COMPARISON: July 20, 2019 FINDINGS: Heart: Normal cardiac silhouette. Lungs: Lungs are clear. No consolidation or pleural effusion. No focal pneumonia. Bones: Normal visualized bony structures. XR/XR chest 1V portable [id number] IMPRESSION: No acute chest findings
[2019-07-28 21:29] LABS: Troponin 5 2HR Delta 0 ABS# (0-10)
--- NOTE | 2019-07-28 21:36 | PC.NURSE ---
Pt states during rounds he still has a H/a 8/10 scale. Lab glucose result 58. VO obtained for bed side accu check. If low, provide PO nutrition and repeat accu check
--- NOTE | 2019-07-28 21:44 | PC.NURSE ---
BS reading 93
--- NOTE | 2019-07-28 22:09 | P.HP_ITS ---
Providers/Chief Complaint Primary Care Provider: Robert Rivera Chief Complaint: chest pain History of Present Illness Mac Bryan is a 39 year old male who underwent coronary angiogram for STEMI on 07/18 which showed single-vessel disease, 50% mid LAD lesion, was discharged on beta-bernadette, aspirin, Plavix and high-dose statins with Imdur (for possible vasospastic angina) came in today with chief complaint of chest pain. Patient is stating that his symptoms started around 6 PM when he was relaxing, he experienced chest discomfort substernally, he could pinpoint his area of chest pain, it was getting worse on taking deep breaths, no significant association with change in position, no recent flulike symptoms, fever cough or sick contacts, he has not traveled outside [place]. He has not noticed any nausea, vomiting, cold sweats or radiation of this chest discomfort versus arm neck or back. His pain is consistent and is not relieved with nitro. He had a recent nuclear stress test which was negative for reversible ischemia, ejection fraction is preserved. Diagnostics in ER revealed sinus bradycardia, hypotension, EKG did not reveal any ischemic or infarctive changes, I have requested TSH, U tox is negative for opioids but positive for benzodiazepines Beta-bernadette and lisinopril held Dr Knowles notified by ER physician Review of Systems Const: Denies: fever or chills Eyes: Denies: change in vision ENMT: Denies: throat pain Card: Reports: chest pain; Denies: palpitations, irregular heart rhythm, edema, swelling of feet/ankles, syncope or pre-syncope Resp: Denies: shortness of breath or non-productive cough GI: Denies: abdominal pain : Denies: flank pain Musc: Denies: neck pain Skin/Breast: Denies: rash or skin pain Neuro: Denies: headache Psych: Denies: anxiety Endo: Denies: excessive urination Zev/Lymph: Denies: easy bruising All/Imm: Denies: hives Medications/Allergies Allergies Allergy/AdvReac Type Severity Reaction Status Date / Time bee venom protein (honey bee) Allergy Severe ALGY-Anaphy Verified 07/28/19 18:23 laxis diphenhydramine Allergy ADR-Irritab Verified 07/28/19 18:23 [From Benadryl] le morphine Allergy ADR-Seizure Verified 07/28/19 18:23 PFSH Acute PFSH: Medical History Chronic diarrhea Coronary disease Dyslipidemia Guillain-Williams H. pylori infection Heart murmur HTN (hypertension), benign Vasospastic angina Conclusions 1. Nonobstructive coronary disease. 2. Normal LV function EF of 55%. There is mild coronary artery disease with one vessel disease. Anterior and inferior patel are normal. Normal left ventricular systolic function. Ejection fraction of 55%. Surgical History History of esophagogastroduodenoscopy (EGD) S/P colonoscopy S/P hernia repair Family History Mother Hypertension Diabetes Myocardial infarction Grandmother Stroke Father CAD (coronary artery disease) Social History Smoking and tobacco status: current every day smoker cigarettes [ Other cigar ette details: OCCASIONAL ] Second hand smoke exposure: No Smoking risk assessment/counseling performed?: No Alcohol intake: current Alcohol intake frequency: holidays/special occasions only Desire information about alcohol rehabilitation?: No Counseling given: No Desire information about substance/drug rehabilitation?: No Counseling given: No Caregiver/support person: Yes Lives independently: No Household members: spouse Current occupational status: employed History of recent travel: No Current gender identity: Male Vitals/I&O/Wt Last Vital Signs Temp 98.4 F 07/28/19 18:14 Pulse 49 L 07/28/19 18:14 Resp 18 07/28/19 18:14 BP 101/71 07/28/19 18:14 Pulse Ox 98 07/28/19 18:14 07/28/19 07/28/19 07/28/19 06:59 14:59 22:59 Intake Total 915.75 / 915.75 Balance 915.75 / 915.75 Weight last 48 hrs Weight 77.111 kg Physical Exam Narrative: EXAM NARRATIVE: This is a young male sitting comfortably in his bed Saturating well on room air Normal hemodynamics No acute distress S1, S2, sinus bradycardia, Systolic blood pressure 89mmhg No active symptoms of chest pain shortness of breath Lung reveals normal breath sounds bilateral without adventitious sounds Abdomen soft nontender nondistended bowel sound present Neurological nonfocal exam Skin does not show any sign ischemia gangrene ulcer Appropriate mood and affect EOMI, PERRLA No skin dryness or hyporeflexia Data : 07/28/19 18:21 07/28/19 18:21 A&P Assessment and plan (1) Acute hypotension: Status: Acute Code(s): I95.9 - Hypotension, unspecified (2) Sinus bradycardia: Status: Acute Code(s): R00.1 - Bradycardia, unspecified (3) Pleuritic chest pain: Status: Acute Code(s): R07.81 - Pleurodynia Additional A&P Information Atypical chest pain Pleuritic chest pain, reproducible, however no recent flulike symptoms, chest pain not relieved with nitro EKG does not show any ischemic or infarct changes, troponin not significantly high, Recent stress test was negative for reversible ischemia, EF is preserved Coronary angiogram on 07/18 revealed 50% LAD lesion, there was concern for vasospastic angina hence he was discharged on antianginal Imdur and beta-bernadette including aspirin, Plavix, statins Patient is currently chest pain-free Would not repeat echo Dr. Knowles has been notified by ER physician, patient was asked to follow-up with Dr. Knowles after coronary angiogram Sinus bradycardia with hypotension Holding beta-bernadette and lisinopril No ischemic changes on EKG EKG reveals sinus bradycardia I believe his bradycardia and hypotension is due to medications We will check TSH and U tox History of gastritis/esophagitis We will give GI cocktail and continue Protonix Active smoker with occasional marijuana use Counseled on smoking cessation and benefits of cessation of THC Full code DVT prophylaxis: Heparin Cardiac diet/n.p.o. after midnight Attestations Medical Necessity Statement*: Needs monitoring for sinus bradycardia and hypotension, anticipating discharge in less than 48 hours after resolution of above-mentioned reasons after holding medications Time Spent in Patient Care: 40 Coding Level of Care Code Acute Manager Pediatric for Chg Fwd Diagnoses Acute hypotension I95.9 Sinus bradycardia R00.1 Pleuritic chest pain R07.81
[2019-07-28 22:38] LABS: Thyroid Stimulating Hormone 0.91 uIU/mL (0.27-4.20)
[2019-07-28 22:52] VITALS: BP 108/60; PULSE 48; RESP 16; O2SAT 99
[2019-07-28 22:55] VITALS: BP 98/65; PULSE 43; RESP 17; O2SAT 97
[2019-07-28] MEDS: heparin 5,000 unit/mL INJ 1 mL 5000 UNIT SUBCUT (23:23)
[2019-07-28 23:34] VITALS: BP 98/65; PULSE 43; RESP 17; TEMP 36.9; O2SAT 97
--- NOTE | 2019-07-29 00:16 | ECG_ITS ---
Measurements Intervals [place] Rate: 39 P: 36 GA: 163 QRS: 33 QRSD: 102 T: 37 QT: 436 QTc: 354 SINUS BRADYCARDIA Compared to ECG 07/21/2019 00:18:34 T-wave abnormality no longer present Electronically Signed On 07-29-2019 18:32:59 CDT by Shereen Knowles M.D. [id number]
[2019-07-29] MEDS: acetaminophen 325 mg Tablet 650 MG PO (00:26)
[2019-07-29] MEDS: atorvastatin 40 mg Tablet PO (00:26)
[2019-07-29] MEDS: pregabalin 75 mg Capsule PO ×2 (00:26→09:31)
[2019-07-29] MEDS: lidocaine 2% viscous 15 ML, aluminum-mag hydrox-simethicon 30 ML, sucralfate oral liq 1 GM PO (00:28)
[2019-07-29 01:48] LABS: Glucose Point of Care 89 mg/dL (70-110)
[2019-07-29 03:17] VITALS: BP 96/60; PULSE 44; RESP 18; TEMP 36.4; O2SAT 95
[2019-07-29 05:23] LABS: Basophils % 0.6 %; Eosinophils # 0.2 10^3/uL (0.0-0.8); Eosinophils % 2.4 %; Hematocrit 35.8 % (42.0-52.0); Hemoglobin 11.3 g/dL (11.7-16.6); Lymphocytes # 2.9 10^3/uL (0.8-4.8); Lymphocytes % 44.1 %; Mean Corpuscular HGB Conc 31.6 g/dL (30.0-36.0); Mean Corpuscular Hemoglobin 29.2 pg (28.0-34.0); Mean Corpuscular Volume 92.5 fL (80-94); Mean Platelet Volume 9.9 fL (7.4-10.4); Monocytes # 0.4 10^3/uL (0.2-0.9); Monocytes % 5.8 %; Neutrophils # 3.1 10^3/uL (1.8-7.7); Nucleated Red Blood Cells % 0 %; Platelet Count 206 10^3/cmm (130-400); Red Blood Count 3.87 10^6/uL (4.1-5.3); White Blood Count 6.7 10^3/uL (4.0-10.0)
--- NOTE | 2019-07-29 06:12 | PC.NURSE ---
Patient arrived via ER to the floor, settled by nurse and aid, patient is alert and oriented vitals soft. Patient has been calm and peaceful the entire night. BP and HR are stable if soft in 40s with occasional drop into the 30s and bp 80-90s/50-60's. Patient remains in sinus lissette. He had a headache earlier and a little touch in his chest when he hit the floor but otherwise slept soundly. His SO called twice and was very anxious wondering how hes doing, what vitals were, what are they going to do, there must be something causing this. are they going to keep him another day? can you call me with what the doctor says Mellisa forgets in 5 minutes, i want him transferred to [facility] I kept telling himthat we will know more when the doctor has seen him. He wanted him to see Dr. Knowles since shes his cardiac doctor and has an appointment with her on the . he kept talking like all this was my decision to make and i assured him this was in the doctors hands and they would let mellisa know and he would call him but he wanted me (or the doc) to call him. he said that the doc took him off metoprolol that hes been on a long time, and that all he needed was xanax for anxiety. I saw no sign of anxiety the entire evening or night he was here but did notice that his SO was very anxious.
[2019-07-29 06:18] LABS: Glucose Point of Care 97 mg/dL (70-110)
[2019-07-29 06:55] LABS: Glucose Point of Care 93 mg/dL (70-110)
[2019-07-29 08:00] VITALS: BP 99/60; PULSE 53; RESP 16; TEMP 36.5; O2SAT 97
[2019-07-29 08:55] VITALS: PULSE 56; O2SAT 92
--- NOTE | 2019-07-29 09:03 | P.PN_ITS ---
Subjective Subjective: Interval history: Admitted last night. Since admission patient has not had any chest pain, difficulty breathing, cough, headache, nausea, vomiting. Patient states at his baseline he does not have any anginal symptoms on exertion. H&P and labs noted. Vitals/I&O/Wt Last Vital Signs Temp 97.7 F 07/29/19 08:00 Pulse 56 L 07/29/19 08:55 Resp 16 07/29/19 08:00 BP 99/60 07/29/19 08:00 Pulse Ox 92 07/29/19 08:55 07/28/19 07/29/19 07/29/19 22:59 06:59 14:59 Intake Total 915.75 / 915.75 360 / 360 Output Total 50 / 50 300 / 300 Balance 915.75 / 915.75 -50 / 865.75 60 / 60 Weight last 48 hrs Weight 77.111 kg Physical Exam Narrative: EXAM NARRATIVE: General: No acute distress, AO x3 HEENT: PERRLA, pupils bilaterally equal and reactive Chest: Normal vesicular breath sounds, no added sounds, equal good air entry bilaterally CVS: S1-S2 regular, no murmurs, no tachycardia, no gallops, no rubs Abdomen: Soft, nontender, no organomegaly, bowel sounds present Neuro: No focal deficits, no facial deformity, AO x3, power 5/5 in all limbs Data : 07/29/19 05:00 07/28/19 18:21 A&P Assessment and plan (1) Chest pain: Status: Acute Qualifiers: Chest pain type: unspecified Qualified Code(s): R07.9 - Chest pain, unspecified Code(s): R07.9 - Chest pain, unspecified (2) Single vessel coronary disease: Status: Acute Code(s): I25.10 - Atherosclerotic heart disease of [place] coronary artery without angina pectoris (3) Sinus bradycardia: Status: Acute Code(s): R00.1 - Bradycardia, unspecified (4) Acute hypotension: Status: Acute Code(s): I95.9 - Hypotension, unspecified Additional A&P Information Chest pain: Given the recent possible cardiac arrest followed by core coronary angiogram showing LAD lesion 50% chest pain for the patient is a little concerning. Check lipid panel, HbA1c. Has not been checked in last 6 months. Urinalysis and toxicology negative except for benzos. Echocardiogram done on the last admission. Continue with Plavix, statin. Aspirin 25 mg stat followed by 81 mg daily for now. EKG reviewed, normal sinus rhythm, mild ST-T changes in 1, 2, aVL, V4 to V6 which are present on the last admission as well. Sinus bradycardia: On admission. Resolved now. At resting heart rate is around 70 bpm right now, sinus rhythm. For now continue to hold off on metoprolol. Can plan to discharge him on a low- dose metoprolol given his CAD. Hypertension: Check orthostatics. For now continue to hold off on lisinopril and Imdur. History of gastritis/esophagitis We will give GI cocktail and continue Protonix Active smoker with occasional marijuana use Counseled on smoking cessation and benefits of cessation of THC Full code DVT prophylaxis: Heparin 5000 every 8 N.p.o. after breakfast today morning for a possible cath. Attestations Medical Necessity Statement*: Chest pain under evaluation Time Spent in Patient Care: Greater than 35 minutes Coding Level of Care Code Acute Maintenance Technician 2Nd Shift for Estrellita Ramos Diagnoses Chest pain R07.9 Chest pain type: unspecified Single vessel coronary disease I25.10 Sinus bradycardia R00.1 Acute hypotension I95.9
[2019-07-29] MEDS: aspirin 81 mg EC Tablet PO (09:31)
[2019-07-29] MEDS: clopidogrel 75 mg Tablet PO (09:31)
[2019-07-29] MEDS: heparin 5,000 unit/mL INJ 1 mL 5000 UNIT SUBCUT (09:31)
[2019-07-29] MEDS: pantoprazole DR 40 mg Tablet PO (09:31)
[2019-07-29 09:37] LABS: Chol HDL Ratio 4.68 mg/dL (1.0-5.00); Cholesterol 131 mg/dL (0-200); HDL Cholesterol 28 mg/dL (60-100); LDL Cholesterol Calculated 74 mg/dL (50-129); Triglycerides 146 mg/dL (0-150); VLDL Cholestrol Calculation 29 mg/dL (0-30)
[2019-07-29 09:38] LABS: Estmated Average Glucose 105; Hemoglobin A1C 5.3 % (4.0-6.0)
[2019-07-29 11:25] VITALS: BP 110/62; PULSE 66; RESP 19; TEMP 36.8; O2SAT 96
--- NOTE | 2019-07-29 11:27 | P.CONIM_ITS ---
Providers/Reason For Consult Consulting Physican/Specialty*: Dr. Knowles, cardiology Reason for Consult*: Chest pain Attending Physician: Regan Horowitz MD Primary Care Provider: Robert Rivera History of Present Illness History of Present Illness Mac Bryan is a 39 year old male with past medical history of hypertension (on lisinopril and metoprolol) and gastritis who was hospitalized on 17 July with left-sided chest discomfort for 40 minutes and his EKG on arrival showed hickman btle ST elevation in inferior leads. Interpretation was limited by baseline artifact. He was taken to the [facility] immediately and coronary angiogram was done. His cath done via right femoral approach revealed right dominant circulation with normal left main, circumflex and RCA with mid to distal LAD having a 50% stenosis. Normal LV function with ejection fraction of 55% and no regional wall motion abnormality. He was discharged home on aspirin and Plavix for 30 days, beta-bernadette, lisinopril and Imdur. He has had 2 ER visits since then. He was scheduled to be seen in July with me but he has called my office multiple times requesting to be seen earlier. I had changed his medication and increased his metoprolol succinate 12.5 to 25 mg and decreased his lisinopril 2.5 mg daily. He follows up with Dr. Diaz and saw him last week where his vitals were normal as per patient and his Ramin. I had set him up for an outpatient stress test which he underwent on Monday. His stress test did not reveal any ischemia in left anterior descending artery territory. He presented to the ER yesterday because when he was relaxing around 6 in the evening he started having sharp stabbing chest pain that he cannot exactly pinpoint. There was no positional component to the pain but he does say that it got worse with taking deep breaths. He denies any flulike symptoms fever cough sick contacts or any travel history. On arrival to the ER his heart rate was in 40s with EKG showing sinus bradycardia without any significant changes. Blood pressure systolically running high 80s to low 100s. At baseline patient's blood pressure runs in 100s over 70s to 80s. Review of Systems General: Reports: other (negative unless marked) Const: Denies: fever, chills, body aches, fatigue, malaise or diaphoresis Eyes: Denies: change in vision or blurry vision ENMT: Denies: throat pain, painful swallowing, hoarseness, ear pain, ear discharge, change in hearing or nasal discharge Card: Reports: chest pain; Denies: palpitations, syncope, pre-syncope, shortness of breath on exertion or shortness of breath when lying down Resp: Denies: shortness of breath, productive cough, non-productive cough, wheezing or coughing up blood GI: Denies: abdominal pain, nausea, vomiting, vomiting blood, coffee grounds in vomit, diarrhea, constipation, cramping, blood in stool or black tarry stool : Denies: difficulty urinating, painful urination, urinary frequency, urinary urgency or blood in urine Musc: Denies: neck pain, back pain, extremity pain or extremity swelling Skin/Breast: Denies: rash or skin tenderness Neuro: Denies: headache, numbness in extremities, weakness in extremities, changes in sensation, lack of coordination, difficulty walking, dizziness, vertigo or confusion Endo: Denies: excessive thirst, tired all the time, cold intolerance, excessi ve sweating, flushing or hot flashes Zev/Lymph: Denies: easy bruising, easy bleeding, petechiae or enlarged lymph nodes All/Imm: Denies: hives, throat swelling, tongue swelling, facial swelling or acute wheezing Meds/Allergies Home Medications and Allergies Home Medications Medication Instructions Recorded Confirmed Type lisinopril 5 mg tablet 5 mg PO BEDTIME tab 04/26/19 07/28/19 History metoprolol tartrate 25 mg tablet 12.5 mg PO DAILY tab 04/26/19 07/28/19 History pregabalin 75 mg capsule 75 mg PO BID cap 04/26/19 07/28/19 History pantoprazole 40 mg tablet,delayed 40 mg PO BID #60 tab 05/30/19 07/28/19 Rx release hydroxyzine HCl 25 mg PO TID 07/18/19 07/28/19 History lithium aspartate 20 mg PO TID 07/18/19 07/28/19 History atorvastatin 40 mg tablet 40 mg PO BEDTIME #30 tab 07/19/19 07/28/19 Rx clopidogrel 75 mg tablet 75 mg PO DAILY #30 tab 07/19/19 07/28/19 Rx isosorbide mononitrate 30 mg 30 mg PO DAILY #30 tab 07/19/19 07/28/19 Rx tablet,extended release 24 hr Allergies Allergy/AdvReac Type Severity Reaction Status Date / Time bee venom protein (honey bee) Allergy Severe ALGY-Anaphy Verified 07/28/19 18:23 laxis diphenhydramine Allergy ADR-Irritab Verified 07/28/19 18:23 [From Benadryl] le morphine Allergy ADR-Seizure Verified 07/28/19 18:23 Current Medications Current Medications Generic Name Dose Route Start Last Admin Trade Name Freq PRN Reason Stop Dose Admin Acetaminophen 650 mg 07/29/19 00:05 07/29/19 00:26 Tylenol PO 650 mg Q6H PRN Administration MILD PAIN Aspirin 81 mg 07/29/19 09:00 07/29/19 09:31 Aspirin Ec PO 81 mg DAILY TINY Administration Atorvastatin Calcium 40 mg 07/28/19 23:48 07/29/19 00:26 Lipitor PO 40 mg BEDTIME TINY Administration Clopidogrel Bisulfate 75 mg 07/29/19 09:00 07/29/19 09:31 Plavix PO 75 mg DAILY TINY Administration Heparin Sodium (Beef Lung) 5,000 unit 07/29/19 09:00 07/29/19 09:31 Heparin SUBCUT 5,000 unit Q8H TINY Administration Pantoprazole Sodium 40 mg 07/29/19 09:00 07/29/19 09:31 Protonix PO 40 mg DAILY TINY Administration PFSH Acute PFSH: Medical History Chronic diarrhea Coronary disease Dyslipidemia Guillain-Campbell H. pylori infection Heart murmur HTN (hypertension), benign Single vessel coronary disease Vasospastic angina Conclusions 1. Nonobstructive coronary disease. 2. Normal LV function EF of 55%. There is mild coronary artery disease with one vessel disease. Anterior and inferior patel are normal. Normal left ventricular systolic function. Ejection fraction of 55%. Surgical History History of esophagogastroduodenoscopy (EGD) S/P colonoscopy S/P hernia repair Family History Mother Hypertension Diabetes Myocardial infarction Grandmother Stroke Father CAD (coronary artery disease) Social History Smoking and tobacco status: current every day smoker cigarettes [ Other cigarette details: OCCASIONAL ] Second hand smoke exposure: No Smoking risk assessment/counseling performed?: No Alcohol intake: current Alcohol intake frequency: holidays/special occasions only Desire information about alcohol rehabilitation?: No Counseling given: No Desire information about substance/drug rehabilitation?: No Counseling given: No Caregiver/support person: Yes Lives independently: No Household members: spouse Current occupational status: employed History of recent travel: No Current gender identity: Male Vitals/I&O/Wt Last Vital Signs Temp 98.2 F 07/29/19 11:25 Pulse 66 07/29/19 11:25 Resp 19 H 07/29/19 11:25 BP 110/62 07/29/19 11:25 Pulse Ox 96 07/29/19 11:25 07/28/19 07/29/19 07/29/19 22:59 06:59 14:59 Intake Total 915.75 / 915.75 360 / 360 Output Total 50 / 50 600 / 600 Balance 915.75 / 915.75 -50 / 865.75 -240 / -240 Weight last 48 hrs Weight 170 lb Physical Exam Const: COMMON NORMALS: no apparent distress, average body habitus, oriented x3, alert and well nourished GENERAL APPEARANCE: cooperative, comfortable, well kempt and well developed ORIENTATION/CONSCIOUSNESS: Yes oriented to person, Yes oriented to place and Yes oriented to time HENMT: COMMON NORMALS: normocephalic, head/scalp atraumatic, hearing grossly normal bilaterally, external ears normal, external nose normal, moist oral mucous membranes and oropharynx normal HEAD & SCALP: normocephalic and atraumatic FACE & SINUS: face symmetric NOSE: external nose normal EXTERNAL EAR: Yes external ears normal MOUTH: oral and palatal mucosa normal Eye: COMMON NORMALS: PERRL, EOMs intact bilaterally and conjunctivae normal ALIGNMENT: Yes alignment normal CONJUNCTIVA: Yes conjunctivae normal SCLERA: sclerae normal PUPIL: Yes PERRL Neck/C-Spine: COMMON NORMALS: no lymphadenopathy, supple, no JVD and thyroid normal; negative for no carotid bruits GENERAL: Yes trachea midline THYROID: thyroid normal Resp: COMMON NORMALS: normal respiratory effort, no use of accessory muscles and clear to auscultation bilaterally AUSCULTATION: clear to auscultation bilaterally, no crackles, no rales, no rhonchi and no wheezes Cardio: COMMON NORMALS: no JVD, regular rate, regular rhythm, S1 normal heart sound, S2 normal heart sound and peripheral pulses 2+ throughout; negative for no gallops and negative for no clicks JUGULAR VENOUS DISTENTION: no JVD PALPATION: normal PMI, no heave, no palpable S3, no palpable S4 and no thrill RATE: regular rate RHYTHM: regular rhythm HEART SOUNDS: S1 normal, S2 normal, no click, no gallops and no murmurs BRUITS: no carotid bruits PERIPHERAL PULSES: pulses 2+ throughout GI: COMMON NORMALS: normal to inspection, nondistended, normoactive bowel sounds, soft to palpation and non-tender PALPATION: Yes soft PERCUSSION: tympanic to percussion RECTAL EXAM: Yes deferred Back/Pelvis: LUMBAR SPINE/LOWER BACK: Yes normal to inspection Neuro: COMMON NORMALS: oriented x3 and no focal motor deficits SENSORIUM/ORIENTATION: Yes alert, Yes oriented to person, Yes oriented to place and Yes oriented to time CRANIAL NERVES: Yes CN normal except as noted Psych: COMMON NORMALS: thought process normal APPEARANCE: Yes well kempt MOOD & AFFECT: Yes euthymic mood THOUGHT PROCESS: normal thought process THOUGHT CONTENT: Yes normal thought content ATTENTION/CONCENTRATION: Yes attention grossly intact MEMORY/COGNITION: Yes memory grossly intact INSIGHT: insight good JUDGEMENT: judgment good A&P Assessment and plan (1) Chest pain: Nonobstructive 50% mid LAD lesion. No ischemia in LAD territory on stress testing. -Concern for vasospastic angina. -Given hypotension and bradycardia on arrival to the ER this time, I will hold off on metoprolol succinate and lisinopril on discharge. -start on amlodipine 2.5 mg and isosorbide mononitrate 15 mg daily on discharge. -Patient seems stable to be discharged home later this afternoon. -He was advised extensively to keep a log of blood pressure and heart rate. Depending on his vitals will plan to add back low-dose metoprolol. -Continue aspirin and statin. Stop Plavix on 16 August. -Follow-up as scheduled with me. Status: Acute Qualifiers: Chest pain type: unspecified Qualified Code(s): R07.9 - Chest pain, unspecified Code(s): R07.9 - Chest pain, unspecified (2) Single vessel coronary disease: Nonobstructive 50% mid LAD lesion. No ischemia in LAD territory on stress testing. -Concern for vasospastic angina. -Given hypotension and bradycardia on arrival to the ER this time, start on amlodipine 2.5 mg and isosorbide mononitrate 15 mg daily. -I will hold off on metoprolol succinate and lisinopril on discharge. -Patient seems stable to be discharged home later this afternoon. -He was advised extensively to keep a log of blood pressure and heart rate. Depending on his vitals will plan to add back low-dose metoprolol. -Continue aspirin and statin. Stop Plavix on 16 August. Status: Acute Code(s): I25.10 - Atherosclerotic heart disease of [place] coronary artery without angina pectoris (3) Sinus bradycardia: Heart rate has improved and patient is currently running in 60s to 70s. Status: Acute Code(s): R00.1 - Bradycardia, unspecified (4) Smoker: Counseled extensively on smoking cessation as it can cause vasospasm. Mac and Ramin expressed their understanding. - Patient previously has stopped smoking with Chantix and seems to be motivated to quit. -I will get him started on Chantix as an outpatient. Status: Acute Code(s): F17.200 - Nicotine dependence, unspecified, uncomplicated Additional A&P Information Anemia Raynaud's phenomemon H/O HTN- BP soft to low on arrival, likely medication related. seems like was taking lisinopril 5 instead of 2.5 mg. Thank you for allowing me to participate in patient's care. Please feel free to call with questions or concerns. Coding Level of Care Code Acute Blade Sharpener for Estrellita Ramos Diagnoses Chest pain R07.9 Chest pain type: unspecified Single vessel coronary disease I25.10 Sinus bradycardia R00.1 Smoker F17.200
[2019-07-29 11:53] LABS: Anion Gap 16.2 (5-19); Blood Urea Nitrogen 12 mg/dL (6-20); Calcium 8.4 mg/dL (8.5-10.5); Carbon Dioxide 22 mmol/L (22-29); Chloride 110 mmol/L (98-107); Glucose 84 mg/dL (65-115); Osmolality Calculated 293 mOsm/kg (285-295); Potassium 4.2 mmol/L (3.5-5.1); Sodium 144 mmol/L (136-145)
--- NOTE | 2019-07-29 12:42 | PM.DCS ---
Discharge Providers Date of Admission: 07/28/19 22:00 Date of Discharge: July 29, 2019 Attending Provider at Admission: Sandy Cordova MD Attending Provider at Discharge: Regan Horowitz MD Primary Care Provider: Robert Rivera Diagnoses at Discharge Discharge Diagnosis (1) Chest pain: Status: Acute Qualifiers: Chest pain type: unspecified Qualified Code(s): R07.9 - Chest pain, unspecified (2) Single vessel coronary disease: Status: Acute (3) Sinus bradycardia: Status: Acute (4) Smoker: Status: Acute Reason for Visit Reason for Visit: Reason For Visit: chest pain Hospital Course Discharge Summary: Mac Bryan is a 39 year old male who underwent coronary angiogram for STEMI on 07/18 which showed single-vessel disease, 50% mid LAD lesion, was discharged on beta-bernadette, aspirin, Plavix and high-dose statins with Imdur (for possible vasospastic angina) with a negative stress test on July 25 presented to the ER on July 27 complaining of stabbing central chest pain at around 6 PM while he was sitting in his bed that day. He denies of having any nausea, vomiting, headache, palpitations, diaphoresis during this event. Patient was admitted to the hospital for further work-up and monitoring. During hospitalization patient did not have any similar complaints. Patient's U tox was positive only for benzos. During hospitalization he was found to have low blood pressures and bradycardia. His vitals were thought most likely because of home dose of beta-bernadette, lisinopril, Imdur so his medications were withheld. Cardiology consult was done due to recent coronary angiogram on July 18. Because patient did not have any similar symptoms, his troponins were negative without any changes in the EKG he was deemed stable to be discharged home and was advised to keep an extensive blood pressure and heart rate log. Metoprolol, lisinopril for discontinued and was started on low-dose amlodipine. His dose of Imdur was half to 50 mg daily. Patient is advised to take aspirin, Plavix, statin daily and to stop his Plavix on August 16. Patient is to follow-up with Dr. Knowles and as an outpatient in 2 weeks. He is been discharged imminently stable condition. Physical Exam Narrative: EXAM NARRATIVE: General: No acute distress, AO x3 HEENT: PERRLA, pupils bilaterally equal and reactive Chest: Normal vesicular breath sounds, no added sounds, equal good air entry bilaterally CVS: S1-S2 regular, no murmurs, no tachycardia, no gallops, no rubs Abdomen: Soft, nontender, no organomegaly, bowel sounds present Neuro: No focal deficits, no facial deformity, AO x3, power 5/5 in all limbs Discharge Data Data Completed and Pending: Completed Studies During Hospitalization Category Date Time Status XR chest 1V steven ble [id number] Stat Exams 07/28/19 20:56 Completed Labs from last 24 hours 07/29/19 07/29/19 07/29/19 06:12 05:30 05:00 WBC RBC Hgb Hct MCV MCH MCHC RDW Plt Count MPV Neut % (Auto) Lymph % (Auto) [place] % (Auto) Eos % (Auto) Baso % (Auto) Neut # (Auto) Lymph # (Auto) [place] # (Auto) Eos # (Auto) Baso # (Auto) Nucleated RBC % (a uto) Nucleated RBCs # Sodium 144 Potassium 4.2 Chloride 110 H Carbon Dioxide 22 Anion Gap 16.2 BUN 12 Creatinine 0.9 GFR Calculation 95.0 Glucose 84 POC Glucose 97 Estimat Average Gl ucose Hemoglobin A1c Calculated Osmolal ity 293 Calcium 8.4 L Total Bilirubin AST ALT Alkaline Phosphata se Troponin T Baselin e Troponin T 120 Min [place] Troponin T Total Protein Albumin Globulin Triglycerides 146 Cholesterol 131 LDL Cholesterol, C alc 74 Total VLDL Cholest estelle 29 HDL Cholesterol 28 L Cholesterol/HDL Ra clemente 4.68 Lipase TSH Urine Opiates Scre en Ur Barbiturates Sc reen Ur Phencyclidine S crn Ur Amphetamines Sc reen U Benzodiazepines Scrn [place] Urine Cocaine Scre en U Marijuana (THC) Screen 07/29/19 07/29/19 07/29/19 05:00 05:00 01:42 WBC 6.7 RBC 3.87 L Hgb 11.3 L Hct 35.8 L MCV 92.5 MCH 29.2 MCHC 31.6 RDW 13.0 Plt Count 206 MPV 9.9 Neut % (Auto) 47.0 Lymph % (Auto) 44.1 [place] % (Auto) 5.8 Eos % (Auto) 2.4 Baso % (Auto) 0.6 Neut # (Auto) 3.1 Lymph # (Auto) 2.9 [place] # (Auto) 0.4 Eos # (Auto) 0.2 Baso # (Auto) 0.0 Nucleated RBC % (a uto) 0 Nucleated RBCs # 0.0 Sodium Potassium Chloride Carbon Dioxide Anion Gap BUN Creatinine GFR Calculation Glucose POC Glucose 89 Estimat Average Gl ucose 105 Hemoglobin A1c 5.3 Calculated Osmolal ity Calcium Total Bilirubin AST ALT Alkaline Phosphata se Troponin T Baselin e Troponin T 120 Min [place] Troponin T Total Protein Albumin Globulin Triglycerides Cholesterol LDL Cholesterol, C alc Total VLDL Cholest [place]elle HDL Cholesterol Cholesterol/HDL Ra clemente Lipase TSH Urine Opiates Scre en Ur Barbiturates Sc reen Ur Phencyclidine S crn Ur Amphetamines Sc reen U Benzodiazepines Scrn [place] Urine Cocaine Scre en U Marijuana (THC) Screen 07/28/19 07/28/19 07/28/19 21:40 20:30 20:21 WBC RBC Hgb Hct MCV MCH MCHC RDW Plt Count MPV Neut % (Auto) Lymph % (Auto) [place] % (Auto) Eos % (Auto) Baso % (Auto) Neut # (Auto) Lymph # (Auto) [place] # (Auto) Eos # (Auto) Baso # (Auto) Nucleated RBC % (a uto) Nucleated RBCs # Sodium Potassium Chloride Carbon Dioxide Anion Gap BUN Creatinine GFR Calculation Glucose POC Glucose 93 Estimat Average Gl ucose Hemoglobin A1c Calculated Osmolal ity Calcium Total Bilirubin AST ALT Alkaline Phosphata se Troponin T Baselin e Troponin T 120 Min [place] Troponin T Total Protein Albumin Globulin Triglycerides Cholesterol LDL Cholesterol, C alc Total VLDL Cholest estelle HDL Cholesterol Cholesterol/HDL Ra clemente Lipase TSH 0.91 Urine Opiates Scre en Negative Ur Barbiturates Sc reen Negative Ur Phencyclidine S crn Negative Ur Amphetamines Sc reen Negative U Benzodiazepines Scrn Positive H [place] Urine Cocaine Scre en Negative U Marijuana (THC) Screen Negative 07/28/19 07/28/19 07/28/19 20:21 18:21 18:21 WBC RBC Hgb Hct MCV MCH MCHC RDW Plt Count MPV Neut % (Auto) Lymph % (Auto) [place] % (Auto) Eos % (Auto) Baso % (Auto) Neut # (Auto) Lymph # (Auto) [place] # (Auto) Eos # (Auto) Baso # (Auto) Nucleated RBC % (a uto) Nucleated RBCs # Sodium Potassium Chloride Carbon Dioxide Anion Gap BUN Creatinine GFR Calculation Glucose POC Glucose Estimat Average Gl ucose Hemoglobin A1c Calculated Osmolal ity Calcium Total Bilirubin AST ALT Alkaline Phosphata se Troponin T Baselin e 6 Troponin T 120 Min [place] 6.00 Delta Troponin T 0 Total Protein Albumin Globulin Triglycerides Cholesterol LDL Cholesterol, C alc Total VLDL Cholest estelle HDL Cholesterol Cholesterol/HDL Ra clemente Lipase TSH Urine Opiates Scre en Ur Barbiturates Sc reen Ur Phencyclidine S crn Ur Amphetamines Sc reen U Benzodiazepines Scrn [place] 0.1 L Urine Cocaine Scre en U Marijuana (THC) Screen 07/28/19 07/28/19 18:21 18:21 WBC 8.3 RBC 4.52 Hgb 13.2 Hct 41.4 L MCV 91.6 MCH 29.2 MCHC 31.9 RDW 12.7 Plt Count 274 MPV 9.6 Neut % (Auto) 58.4 Lymph % (Auto) 33.3 [place] % (Auto) 5.8 Eos % (Auto) 1.9 Baso % (Auto) 0.5 Neut # (Auto) 4.8 Lymph # (Auto) 2.8 [place] # (Auto) 0.5 Eos # (Auto) 0.2 Baso # (Auto) 0.0 Nucleated RBC % (a uto) 0 Nucleated RBCs # 0.0 Sodium 145 Potassium 4.1 Chloride 107 Carbon Dioxide 27 Anion Gap 15.1 BUN 12 Creatinine 1.1 GFR Calculation 75.3 L Glucose 58 L POC Glucose Estimat Average Gl ucose Hemoglobin A1c Calculated Osmolal ity 294 Calcium 9.2 Total Bilirubin 0.3 AST 19 ALT 28 Alkaline Phosphata se 80 Troponin T Baselin e Troponin T 120 Min [place] Troponin T Total Protein 6.9 Albumin 4.3 Globulin 2.6 Triglycerides Cholesterol LDL Cholesterol, C alc Total VLDL Cholest [place] HDL Cholesterol Cholesterol/HDL Ra clemente Lipase 71 H TSH Urine Opiates Scre en Ur Barbiturates Sc reen Ur Phencyclidine S crn Ur Amphetamines Sc reen U Benzodiazepines Scrn [place] Urine Cocaine Scre en U Marijuana (THC) Screen Vitals: Last Vital Signs Temp 98.2 F 07/29/19 11:25 Pulse 66 07/29/19 11:25 Resp 19 H 07/29/19 11:25 BP 110/62 07/29/19 11:25 Pulse Ox 96 07/29/19 11:25 Discharge Plan Discharge Patient Disposition: Home, Self-Care Condition: Stable Prescriptions: New aspirin 81 mg Tablet,Delayed Release (Dr/Ec) 81 mg PO DAILY Qty: 30 RF: 0 pantoprazole 40 mg Tablet,Delayed Release (Dr/Ec) 40 mg PO DAILY Qty: 15 RF: 0 amlodipine 5 mg Tablet 2.5 mg PO DAILY Qty: 30 RF: 0 Continued pregabalin [Lyrica] 75 mg capsule 75 mg PO BID RF: 0 atorvastatin 40 mg tablet 40 mg PO BEDTIME Qty: 30 RF: 0 hydroxyzine HCl 25 mg Tablet 25 mg PO TID RF: 0 lithium aspartate 20 mg Capsule 20 mg PO TID RF: 0 clopidogrel 75 mg tablet 75 mg PO DAILY 19 Days Qty: 19 RF: 0 Changed isosorbide mononitrate 30 mg tablet extended release 24 hr 15 mg PO DAILY Qty: 30 RF: 0 Discontinued pantoprazole 40 mg tablet,delayed release (DR/EC) 40 mg PO BID Qty: 60 RF: 6 lisinopril 5 mg tablet 5 mg PO BEDTIME RF: 0 metoprolol tartrate 25 mg tablet 12.5 mg PO DAILY RF: 0 Discharge Orders: Discharge Order (Routine); Ordered 07/29/19 Ordered By: Regan Horowitz Referrals: Shereen Knowles MD [Physician] - Discharge Diet: Cardiac Discharge Activity: Resume usual activity Activity Restrictions/Additional Instructions: Amlodipine 2.5 mg has been added, Imdur has been decreased to 50 mg daily, Lopressor has been discontinued for now, lisinopril has been discontinued for now. Keep extensive log of blood pressure and heart rate and bring for the next follow-up with Dr. Knowles in 2 weeks. Take aspirin, Plavix, statin daily. Stop Plavix on August 16. Discharge Attestations Time Spent in Discharge Care*: greater than 30 min Specific Discharge Activities: Specific discharge activities: educating patient, educating and/or supporting family/caregiver, discussing with pcp/other providers, discussing with bottle caser/social workers/dc planners and evaluating patient/reviewing data Status at Discharge: Cognitive status at discharge: cognitively intact, Behavioral status at discharge: cooperative, Overall status at discharge: patient is back to baseline Quality Metrics Clinical Quality Measures During this hospital stay, did patient experience: None Coding Level of Care Code Acute Ms Sql Server Developer for Estrellita Fwd Diagnoses Chest pain R07.9 Chest pain type: unspecified Single vessel coronary disease I25.10 Sinus bradycardia R00.1 Smoker F17.200
[2019-07-29 13:17] VITALS: BP 110/62; PULSE 66; RESP 19; TEMP 36.8; O2SAT 96
== END 2019-07-29 14:22 | disposition home or self-care (01) ==
LOC: ER 19:10 → CSU 22:37
PROVIDERS: Admitting Provider Internal Medicine; Emergency Provider Emergency Medicine; Family Provider Family Medicine; PCP Family Medicine; Visit Provider Student in an Organized Health Care Education/Training Program
DX: I95.9 Hypotension, unspecified (principal); R00.1 Bradycardia, unspecified; R07.81 Pleurodynia; Z79.02 Long term (current) use of antithrombotics/antiplatelets; I25.10 Atherosclerotic heart disease of native coronary artery without angina pectoris; E78.5 Hyperlipidemia, unspecified; I10 Essential (primary) hypertension; Z82.49 Family history of ischemic heart disease and other diseases of the circulatory system; Z83.3 Family history of diabetes mellitus; F17.210 Nicotine dependence, cigarettes, uncomplicated; D64.9 Anemia, unspecified; I73.00 Raynaud's syndrome without gangrene
CPT/HCPCS: 12345; 36415; 36416; 71045; 80048; 80053; 80061; 80178; 80306; 82962; 83036; 83690; 84443; 84484; 85025; 93005; 96360; 96372; 96374; 96375; 99283; 99285; G0378; J1644; J2405; J7030

== ENCOUNTER → 2020-06-03 08:41 | Outpatient (BNVA) | payer MEDICAID, SELFPAY | PROVIDERS: Family Provider Family Medicine; PCP Nurse Practitioner; Visit Provider Surgery | DX: Z20.822 Contact with and (suspected) exposure to COVID-19 (principal); L05.91 Pilonidal cyst without abscess | CPT/HCPCS: 87635 ==

== ENCOUNTER 2020-06-08 07:21 | Day surgery (SDC) | payer MEDICAID, SELFPAY ==
[2020-06-05 15:01] VITALS: BMI 31.3
[2020-06-08] VITALS (9 sets, daily range): BP systolic 120–143; BP diastolic 74–94; PULSE 72–89; RESP 16–20; TEMP 36.5–37; O2SAT 90–95
--- NOTE | 2020-06-08 07:50 | W.PM.OPSUD ---
Surgery/Procedure H&P Update DATE OF PROCEDURE: June 08, 2020 DATE H&P PERFORMED: 05/28/20 H&P UPDATE INFORMATION: I have reviewed H&P completed within last 30 days, I have examined patient prior to procedure and No changes to prior documentation PREOP DIAGNOSIS: Lower back pilonidal cyst PRIMARY INDICATION FOR PROCEDURE: The same PLANNED PROCEDURE: Operation Date: 06/08/20 09:00 Proposed Procedures p Pilonidal Cystectomy [facility] 21268 L05.91(Not Applicable) - Hao Ya MD
[2020-06-08] MEDS: sodium chloride 0.9% 1,000 ML 30 ML IV (08:09)
--- NOTE | 2020-06-08 08:14 | ANES.PREANE2 ---
Pre-Anesthetic Assessment Pre-Anesthetic Assessment: Height/Weight: Height 1.7 m Weight 90.718 kg Temp Pulse Resp BP Pulse Ox 98.1 F 72 18 143/94 94 06/08/20 07:47 06/08/20 07:47 06/08/20 07:47 06/08/20 07:47 06/08/20 07:47 Preop Diagnosis: Lower back pilonidal cyst Proposed Procedure: Operation Date: 06/08/20 09:00 Proposed Procedures p Pilonidal Cystectomy [place] 50450 L05.91(Not Applicable) - Hao Ya MD Was Beta Vickie taken within 24 hours: Yes Last intake: Intake Last Liquid Date 06/07/20 Last Liquid Time 20:00 Last Solid Date 06/07/20 Last Solid Time 20:00 Social: Social History: Tobacco and No alcohol Exam: Pre-Anes Outpt Exam: alert, oriented x 3, clear to auscultation bilaterally and regular rate & rhythm Airway: Submandibular: WNL Cervical ROM: WNL MP: 2 Dentition: Full Pulmonary: Pulmonary: COPD Comments: Previous trach from acute episode of GB CV/HEM: CV/HEM: HTN and [place] GI: GI: GERD Comments: Gastritis Metabolic: Metabolic: Morbid obesity Neuropsych: Neuropsych: Anxiety Anesthetic Plan: ASA status: 3 Anesthesia: General Risk of > 500 ml blood loss (7ml/kg in children): No Meds/Allergies Current Medications: Current Medications Generic Name Dose Route Start Last Admin Trade Name Freq PRN Reason Stop Dose Admin Sodium Chloride 1,000 mls @ 30 ml s/hr 06/08/20 07:45 06/08/20 08:09 Sodium Chloride 0.9% IV 06/09/20 07:44 30 mls/hr .Q24H TINY Administration PFSH Anesthesia PFSH: Medical History Chronic diarrhea Coronary disease Dyslipidemia 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 Nonobstructive coronary disease. 2. Normal LV function EF of 55%. There is mild coronary artery disease with one vessel disease. Anterior and inferior patel are normal. Normal left ventricular systolic function. Ejection fraction of 55%. Surgical History History of esophagogastroduodenoscopy (EGD) S/P colonoscopy S/P hernia repair Family History Mother Hypertension Diabetes Myocardial infarction Grandmother Stroke Father CAD (coronary artery disease) Social History Smoking and tobacco status: current every day smoker cigarettes [ Other cigarette details: OCCASIONAL ] Second hand smoke exposure: No Smoking risk assessment/counseling performed?: No Alcohol intake: current Alcohol intake frequency: holidays/special occasions only Desire information about alcohol rehabilitation?: No Counseling given: No Desire information about substance/drug rehabilitation?: No Counseling given: No Caregiver/support person: Yes Lives independently: No Household members: spouse Current occupational status: employed History of recent travel: No Current gender identity: Male Data Anesthesia Cardiac Studies: No Data to Display
[2020-06-08] MEDS: lidocaine 2% INJ 20 mL INJECTION (09:54)
--- NOTE | 2020-06-08 09:57 | P.OP_ITS ---
Operative Report Date of procedure: June 08, 2020 Pre-op Diagnosis: Lower back pilonidal cyst Post-op diagnosis: same Post-op Findings: No evidence of abscess formation Procedure Done: Lower back pilonidal cystectomy Implants: 1 inch Nu Gauze soaked in 2% lidocaine Specimens removed/disposition: Lower back pilonidal cystectomy sutures marked superior Surgeon: Hao Ya Illuminating Engineer: Dang Roland Anesthesia: General (research chemical engineer Bobbi) Estimated blood loss (mL): 5 Condition: stable Disposition: same day Brief History: This is a pleasant 39 years old gentleman presented with symptomatic pilonidal cyst located at the lower back. After thorough history physical examination reviewing the chart I did career guidance counselor the patient for lower back pilonidal cystectomy and he did agree to proceed accordingly. Informed consent per chart Procedure: After identifying the patient holding area,, patient was then taken to the operative suite, was placed in first in supine position, endotracheal tube was placed by the anesthesia provider and,Time-out was done verifying the patient's name/date of /planned procedure and destination after the procedure, all were in agreement. SCDs confirmed to be functioning, preoperative antibiotics administered per protocol, and beta bernadette protocol was confirmed, appropriate positioning of the patient was done by me. patient was then placed in left lateral position, right arm was placed in 90? to his body, prep and drape of the lower back region was done under the usual sterile technique. Elliptical skin incision was done including a single pit of the anal cleft after probing it with lacrimal probe that was directed cephalad,incision was done all the way down to the subcutaneous tissues and periosteal covering the coccyx, dissection was then carried on , pilonidal mass all excised en toto , the mass was oriented by 3-0 nylon sutures in the form of short superior then passed to the circulating nurse for permanent pathology. Curette edge was then achieved to the cavity to remove any residual of unhealthy granulation tissues .Hemostasis was then achieved using Bovie cautery, followed by 0 -Vicryl were used as an interrupted sutures, bites were taken from the subdermal level to the periosteum and tied down to make the wound gap more shallow to help healing postoperatively and make the packing easier on the patient, suturing was done in an interrupted circumferential fashion . Local anesthesia 2% lidocaine was infiltrated surrounding the wound cavity, wound was then packed by 1 inch Nu Gauze impregnated and lidocaine 2% followed by ABDs and surgical pants Count was completed at the end of the procedure Patient was taken to the recovery room in stable condition after extubation I was present for the whole entire procedure
--- NOTE | 2020-06-08 10:34 | SUR.PHASEI ---
recieved care of pt in pacu at 1025 pt awake alert talkatiave albuterol neb to pt on 8l O2 VSS IV PATENT PT DENIES PAIN AND NAUSEA. 1035 NEB STOPPED PT RESP EVEN AND UNLABORED VSS LUNGS CLEAR WITH DIM BASES, NO DISTRESS NOTED PT ENCOURAGED TO COUGH AND DEEP BREATH.
--- NOTE | 2020-06-08 16:19 | ANE.PACU2 ---
Inpatient post-anesthesia follow up: Airway intact: Yes Vital signs: Temperature 98.6 F Pulse Rate 76 Respiratory Rate 16 Blood Pressure 120/79 Pulse Oximetry 91 Oxygen Delivery Me thod Room Air Oxygen Flow Rate 8 Fraction of Inspir ed Oxygen Hydration adequate: Yes Nausea and vomiting: No Pain level: 2 Mental status: Baseline
== END 2020-06-08 11:20 | disposition home or self-care (01) ==
PROVIDERS: PCP Nurse Practitioner; Visit Provider Surgery
PROC: (CPT 11770; principal; 2020-06-08 09:00)
DX: L05.91 Pilonidal cyst without abscess (principal); J44.9 Chronic obstructive pulmonary disease, unspecified; I10 Essential (primary) hypertension; I25.2 Old myocardial infarction; E66.01 Morbid (severe) obesity due to excess calories; Z68.31 Body mass index [BMI] 31.0-31.9, adult; F41.9 Anxiety disorder, unspecified; I25.10 Atherosclerotic heart disease of native coronary artery without angina pectoris; F17.210 Nicotine dependence, cigarettes, uncomplicated; Z82.49 Family history of ischemic heart disease and other diseases of the circulatory system; Z83.3 Family history of diabetes mellitus; Z79.82 Long term (current) use of aspirin
CPT/HCPCS: 11770; 12345; 88304; 96365; J0131; J0690; J1100; J2250; J2405; J2704; J2710; J3010; J3490; J3535; J7030; J7611

== ENCOUNTER 2020-07-03 09:43 | Outpatient (CLI) | payer MEDICAID, SELFPAY | END 2020-07-03 09:44 | disposition home or self-care (01) | LOC: WOUND 09:44 | PROVIDERS: PCP Nurse Practitioner; Visit Provider Surgery | DX: T81.89XA Other complications of procedures, not elsewhere classified, initial encounter (principal) | CPT/HCPCS: 11042; G0463 ==

== ENCOUNTER 2020-07-10 10:26 | Outpatient (CLI) | payer MEDICAID, SELFPAY | END 2020-07-10 10:27 | disposition home or self-care (01) | LOC: WOUND 10:27 | PROVIDERS: PCP Nurse Practitioner; Visit Provider Surgery | DX: T81.89XA Other complications of procedures, not elsewhere classified, initial encounter (principal) | CPT/HCPCS: 11042 ==

== ENCOUNTER 2020-07-17 10:49 | Outpatient (CLI) | payer MEDICAID, SELFPAY | END 2020-07-17 10:50 | disposition home or self-care (01) | LOC: WOUND 10:50 | PROVIDERS: PCP Nurse Practitioner; Visit Provider Nurse Practitioner Family | DX: T81.89XA Other complications of procedures, not elsewhere classified, initial encounter (principal) | CPT/HCPCS: 11042 ==

== ENCOUNTER 2020-07-24 10:45 | Outpatient (CLI) | payer MEDICAID, SELFPAY | END 2020-07-24 10:46 | disposition home or self-care (01) | LOC: WOUND 10:46 | PROVIDERS: PCP Nurse Practitioner; Visit Provider Surgery | DX: Z09 Encounter for follow-up examination after completed treatment for conditions other than malignant neoplasm (principal) | CPT/HCPCS: 99212 ==

== ENCOUNTER 2020-12-14 12:11 | Outpatient (CLI) | payer MEDICAID, SELFPAY ==
[2020-12-14 12:31] VITALS: BP 104/70; BP 115/77; PULSE 51; PULSE 76; RESP 16; RESP 18; TEMP 36.7; TEMP 36.9; O2SAT 94; BMI 32.3
[2020-12-14 13:11] VITALS: BP 106/75; PULSE 55; RESP 16; O2SAT 93
== END 2020-12-14 12:12 | disposition home or self-care (01) ==
LOC: OPS 12:15
PROVIDERS: PCP Nurse Practitioner; Visit Provider Nurse Practitioner
DX: U07.1 COVID-19 (principal)
CPT/HCPCS: 96365

== ENCOUNTER → 2021-02-11 13:24 | Outpatient (BNVA) | payer MEDICAID, SELFPAY | PROVIDERS: PCP Nurse Practitioner; Visit Provider Psychiatry & Neurology Psychiatry | DX: F60.3 Borderline personality disorder (principal); F43.9 Reaction to severe stress, unspecified; F33.2 Major depressive disorder, recurrent severe without psychotic features; F41.1 Generalized anxiety disorder | CPT/HCPCS: 99204 ==

== ENCOUNTER → 2021-03-30 14:49 | Outpatient (BNVA) | payer MEDICAID, SELFPAY | PROVIDERS: PCP Nurse Practitioner; Visit Provider Psychiatry & Neurology Psychiatry | DX: F41.1 Generalized anxiety disorder (principal); F33.2 Major depressive disorder, recurrent severe without psychotic features; F43.9 Reaction to severe stress, unspecified; F60.3 Borderline personality disorder | CPT/HCPCS: 99214 ==

== ENCOUNTER → 2021-06-28 13:10 | Outpatient (BNVA) | payer MEDICAID, SELFPAY | PROVIDERS: PCP Nurse Practitioner; Visit Provider Psychiatry & Neurology Psychiatry | DX: F41.1 Generalized anxiety disorder (principal); F33.2 Major depressive disorder, recurrent severe without psychotic features; F43.9 Reaction to severe stress, unspecified; F60.3 Borderline personality disorder | CPT/HCPCS: 99213 ==

== ENCOUNTER → 2021-07-20 15:30 | Outpatient (BNVA) | payer MEDICAID, SELFPAY | PROVIDERS: PCP Nurse Practitioner; Referring Provider Nurse Practitioner; Visit Provider Specialist | DX: G62.89 Other specified polyneuropathies (principal); Z87.891 Personal history of nicotine dependence | CPT/HCPCS: 95909 ==

== ENCOUNTER → 2021-09-20 10:41 | Outpatient (BNVA) | payer MEDICAID, SELFPAY | PROVIDERS: PCP Nurse Practitioner; Visit Provider Psychiatry & Neurology Psychiatry | DX: F41.1 Generalized anxiety disorder (principal); F33.2 Major depressive disorder, recurrent severe without psychotic features; F43.9 Reaction to severe stress, unspecified; F60.3 Borderline personality disorder | CPT/HCPCS: 99213 ==

== ENCOUNTER → 2021-10-01 14:40 | Outpatient (BNVA) | payer MEDICAID, SELFPAY | PROVIDERS: PCP Nurse Practitioner; Referring Provider Nurse Practitioner; Visit Provider Specialist | DX: G62.89 Other specified polyneuropathies (principal); G65.0 Sequelae of Guillain-Barre syndrome; F33.2 Major depressive disorder, recurrent severe without psychotic features; F43.9 Reaction to severe stress, unspecified | CPT/HCPCS: 99204; 99205 ==

== ENCOUNTER 2021-11-15 21:04 | Inpatient (IN) | payer MEDICAID, SELFPAY ==
[2021-11-15 21:13] VITALS: BP 137/84; PULSE 77; RESP 16; TEMP 36.8; O2SAT 96
--- NOTE | 2021-11-15 21:14 | ED_ITS ---
HPI - General Adult General: Chief complaint: Psychiatric Symptoms Stated complaint: Depression SI Time Seen by Provider: 11/15/21 21:13 History of Present Illness: HPI: [41]yo patient w/ hx of bipolar disorder BIBA for worsening depression with passive wish. No active plan. On arrival, the patient is AAOx3 and cooperative with my evaluation. No focal complaints of chest pain, shortness of breath, palpitations, N/V, focal GI/ complaints. Currently denies SI/HI. +auditory hallucinations. Onset: acute on chronic Duration: ongoing Location: home Severity: severe Associated symptoms: Deny chest pain, dyspnea, nausea, rash, palpitations or vomiting Review of Systems Const: Denies: fever(s) or chills Eyes: Denies: change in vision ENMT: Denies: mouth pain Card: Denies: chest pain or palpitations Resp: Denies: dyspnea or non-productive cough GI: Denies: abdominal pain, nausea, vomiting or diarrhea : Denies: dysuria Musc: Denies: extremity pain Skin/Breast: Denies: rash or new lesions Neuro: Denies: weakness in extremities Psych: Reports: depression and auditory hallucinations Zev/Lymph: Denies: easy bruising PFSH ED PFSH: Medical History Chronic diarrhea Coronary disease Dyslipidemia 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 Nonobstructive coronary disease. 2. Normal LV function EF of 55%. There is mild coronary artery disease with one vessel disease. Anterior and inferior patel are normal. Normal left ventricular systolic function. Ejection fraction of 55%. Surgical History History of esophagogastroduodenoscopy (EGD) S/P colonoscopy S/P hernia repair Family History Mother Hypertension Diabetes Myocardial infarction Grandmother Stroke Father CAD (coronary artery disease) Social History Smoking and tobacco status: never smoked Quit status (tobacco): has quit using tobacco Year quit tobacco: 2020 Second hand smoke exposure: Yes (Once in a while.) Smoking risk assessment/counseling performed?: No Alcohol intake: current Alcohol intake frequency: holidays/special occasions only Desire information about alcohol rehabilitation?: No Counseling given: No Desire information about substance/drug rehabilitation?: No Counseling given: No Caregiver/support person: Yes Lives independently: No Household members: spouse Current occupational status: employed History of recent travel: No Current gender identity: Male Physical Exam Const: COMMON NORMALS: alert HENMT: COMMON NORMALS: atraumatic HEAD & SCALP: atraumatic MOUTH: moist mucous membranes not abnormal Eye: COMMON NORMALS: EOMs intact bilaterally and conjunctivae normal CONJUNCTIVA: Yes conjunctivae normal Neck/C-Spine: COMMON NORMALS: full ROM and supple Resp: COMMON NORMALS: normal respiratory effort and clear to auscultation bilaterally AUSCULTATION: clear to auscultation bilaterally Cardio: COMMON NORMALS: regular rate RATE: regular rate GI: COMMON NORMALS: Soft to palpation and non-tender PALPATION: Yes Soft to palpation Extremity: COMMON NORMALS: full ROM Neuro: SENSORIUM/ORIENTATION: Yes alert MOTOR EXAM: No Abnormal motor strength present and Other motor observations present (no focal motor deficits) Psych: COMMON NORMALS: speech normal SPEECH: Yes normal speech MOOD & AFFECT: Yes depressed mood Course Vital Signs: Vital signs: Vital Signs Temperature 98.3 F 11/15/21 21:13 Pulse Rate 77 11/15/21 21:13 Respiratory Rate 16 11/15/21 21:13 Blood Pressure 137/84 11/15/21 21:13 Pulse Oximetry 96 11/15/21 21:13 MDM - General Adult Medical Decision Making [41]yo patient w/ hx of bipolar disorder presenting for depression and passive wish. Patient also reports auditory hallucination. HDS, exam within normal limit Thoughts are linear and organized, and the patient has no VH, or HI. Clinically the patient displays no overt toxidrome; they are well appearing, with low suspicion for toxic ingestion given history and exam. Symptoms unlikely 2/2 anemia, hypothyroidism, infection, or ICH. Workup: CBC, CMP, Lipase, salicylate/tylenol, blood alcohol level, UDS Lab findings: wnl [9:37pm] On reassessment, labs and workup wnl. Patient is hemodynamically stable with no acute medical complaints. Case discussed with psychiatric provider Dr. Lowe at [facility] psych inpatient with recommendation for admission Disposition: Psych Discharge Plan Discharge Patient Disposition: Admitted As Inpatient Clinical Impression: Depression with suicidal ideation Condition: Stable Coding Level of Care Code ED Scada Engineer for Chg Fwd Exam Comprehensive
[2021-11-15 21:42] LABS: Basophils # 0.1 10^3/uL (0.0-0.1); Basophils % 0.7 %; Eosinophils # 0.3 10^3/uL (0.0-0.8); Eosinophils % 3.8 %; Hematocrit 42.8 % (42.0-52.0); Lymphocytes # 2.5 10^3/uL (0.8-4.8); Lymphocytes % 33.3 %; Mean Corpuscular HGB Conc 32.7 g/dL (30.0-36.0); Mean Corpuscular Hemoglobin 29.3 pg (28.0-34.0); Mean Corpuscular Volume 89.5 fl (80-94); Mean Platelet Volume 9.6 fL (7.4-10.4); Monocytes # 0.6 10^3/uL (0.2-0.9); Monocytes % 7.3 %; Neutrophils # 4.16 10^3/uL (1.8-7.7); Neutrophils % 54.6 %; Nucleated Red Blood Cells % 0 %; Platelet Count 245 10^3/cmm (130-400); Red Blood Count 4.78 10^6/uL (4.1-5.3); Red Cell Distribution Width 13.6 % (12.1-15.1); White Blood Count 7.6 10^3/uL (4.0-10.0)
[2021-11-15 22:13] LABS: Acetaminophen < 5.0 ug/mL (10-30); Alanine Aminotransferase 25 U/L (0-41); Albumin Level 4.6 g/dL (3.5-5.2); Alcohol Level 182 mg/dL (0-10); Alkaline Phosphatase 88 IU/L (40-130); Aspartate Amino Transferase 29 U/L (0-40); Blood Urea Nitrogen 9 mg/dL (6-20); Calcium 9.1 mg/dL (8.5-10.5); Carbon Dioxide 21 mmol/L (22-29); Chloride 107 mmol/L (98-107); Globulin 2.5 g/dL (1.3-4.6); Glomerular Filtration Rate 93.9 mL/min (90-130); Glucose 91 mg/dL (65-115); Lipase 32 U/L (13-60); Osmolality Calculated 296 mOsm/kg (285-295); Salicylate < 0.3 mg/dL (3-10); Sodium 144 mmol/L (136-145); Total Bilirubin 0.2 mg/dL (0.15-1.2); Total Protein 7.1 g/dL (6.6-8.7)
[2021-11-15 22:15] LABS: Lithium 1.4 mmol/L (0.6-1.2)
[2021-11-15 22:17] LABS: Amphetamines Screen Urine Negative (Negative); Barbiturates Screen Urine Negative (Negative); Benzodiazepines Screen Urine Positive (Negative); Cocaine Screen Urine Negative (Negative); Opiate Screen Urine Negative (Negative); PCP Screen Urine Negative (Negative); THC Screen Urine Positive (Negative)
[2021-11-15 22:21] VITALS: BP 132/85; PULSE 60; RESP 18; TEMP 36.5; O2SAT 97
[2021-11-15] MEDS: acetaminophen 325 mg Tablet 650 MG PO (22:49)
[2021-11-15 23:03] VITALS: BMI 27.4
[2021-11-15 23:04] VITALS: BP 132/85; PULSE 60; RESP 18; TEMP 36.5; O2SAT 97
--- NOTE | 2021-11-15 23:58 | PC.NURSE ---
Patient has 7 upper teeth and 3 lower teeth
--- NOTE | 2021-11-16 00:14 | PC.NURSE ---
History of Guillain [place] syndrome 2002
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
--- NOTE | 2021-11-16 01:12 | PC.ADMIT ---
[id number] Admission Note: The patient,Mac Bryan,41 y/o, was given written information regarding hospital policies, unit procedures and contact persons. Patient's smoking status: never smoked. Vital Signs - 8 hr 11/15/21 21:13 11/15/21 22:21 11/15/21 23:04 Temperature 98.3 F 97.7 F 97.7 F Pulse Rate 77 60 60 Respiratory Rate 16 18 18 Blood Pressure 137/84 132/85 132/85 Pulse Oximetry 96 97 97 Admitted to floor from ED this 41 y.o. male for SI,verbalized but no plan. No Auditory or visual hallucinations at this time. Had Tylenol for a toothache,has 10 teeth,soft diet ordered. Skin assessment unremarkable.
[2021-11-16 06:00] VITALS: BP 110/73; PULSE 66; RESP 17; TEMP 36.8; O2SAT 98
[2021-11-16] MEDS: folic acid 1 mg Tablet PO (08:47)
[2021-11-16] MEDS: thiamine 100 mg Tablet PO (08:47)
[2021-11-16] MEDS: multivitamin therapeutic Tablet 1 TAB PO (08:47)
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
[2021-11-16 13:06] VITALS: BP 136/84; PULSE 65; RESP 17; TEMP 36.6; O2SAT 97
[2021-11-16 13:23] LABS: Lithium 0.1 mmol/L (0.6-1.2)
--- NOTE | 2021-11-16 14:19 | W.PM.NPUH&PS ---
Providers/Chief Complaint Admitting Physician: Eren Lowe MD Primary Care Provider: HUSSAIN Cook Chief Complaint: Depression SI HPI NPU History of Present Illness Mac Bryan is a 41 year old male who presents today reporting he was admitted to the neuropsychiatric unit as his mental and physical health have been worsening and had a moment of weakness. 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 He currently sees a counselor at a clinic in [place] weekly and a psychiatrist Dr. Sawyer who he sees virtually. He could not the medications he is on though he reports he is on a few but reports he was diagnosed with severe depression and post traumatic stress disorder. He is currently taking Xanax 1 mg once daily for sleep and reports his one doctor had made him upset stating ?no one has severe anxiety like that? when discussing his Xanax. He reports flashbacks and visual and auditory hallucinations in the form of a shadow figure that he endorses is always present after the aforementioned incident where he was in the hospital paralyzed. He reports problems with alcohol around 27 years old after his father . He denies any deanna symptoms of withdrawal and currently drinks occasionally. He reports marijuana in the past daily but currently occasionally and denies any other illicit drug use. He reports he has been struggling with working on disability but has problems trying to balance work with taking care of his physical health. He reports he is more vocal about his mental health and came voluntarily to the hospital as he felt there were disagreements between him and his mother about going on a trip to see his sister in [place]. He reports he is reading the bible and working on interpreting it in his own way and making his confirmation. He could not explain if his thinking has been abnormal recently and could not recall anyone reporting he seemed to be thinking abnormally either. He reports he has been more depressed recently secondary to his physical health and finding out about the polyneuropathy recently. He also had the electrode study and endorses cramps and tension since the test. He reports there have been suggestions for him to use a cane while walking. He reports his panic attacks he has been experiencing have included symptoms of chest pain and shortness of breath which comes out of the blue for him and typically lasts 20 minutes to half a day. He reports when he is experiencing bad anxiety attacks he just goes to sleep and denies any anxiety prior to 2001. He reports a history of periods of time lasting 2 to 3 days and would experience racing thoughts, increased engagement in projects, excessive cleaning, talking faster than usual, increased spending and increased extraversion in his behaviors. He reports this event occurs every month every 2 to 3 days. He is currently taking [place]. Psychiatric History: As above. Medications: acylovir, zyrtec, coenyzyme q10, prozac 40mg in am, synthroid 25mcg, [place] 150mg twice a day. Pregabalin 75mg twice a day. Rosuvastatin 40mg daily, [place] Fatty Acids 500mg one capsule daily Substance Abuse History: As above. Family History: He denies mental health issues on either side of the family. Developmental History: He reports he was potentially in learning support for pashto but did not report any issues with meeting his developmental delays. Psychosocial History: He reports he was born in [place] and raised by his biological parents. He has 5 older sisters who are products of the same union. He graduated high school and got a certifact in [employer] and [employer]. He is currently unemployed and lives with his mother as his father . He was but is currently as his partner a month after they were secondary to seizure issues. He reports they had known each other for a couple years before they started dating. He does not have any children. He reports things were rough throughout his life after coming out to his father but denies emotional, physical or emotional abuse. He endorses flashbacks Legal History: He did not report any legal issues during the interview. Medical History: He has chronic back pain, leg pain, fatigue, loss of fine motor skills and tremors. He has gastroesophageal reflux disease. 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 He is allergic to morphine and bee venom. ecessary and the clinically appropriate intervention at this time. We will monitor medications and make changes as indicated. Meds NPU Home Medications Medication Instructions Recorded Confirmed Last Taken Type pregabalin 75 mg capsule (Lyrica) 75 mg PO BID cap 04/26/19 10/01/21 06/07/20 History aspirin 81 mg tablet,delayed 81 mg PO DAILY #30 tab 07/29/19 10/01/21 06/05/20 Rx release pantoprazole 40 mg tablet,delayed 40 mg PO DAILY #15 tab 07/29/19 10/01/21 06/07/20 Rx release nitroglycerin 0.4 mg sublingual 0.4 mg SUBLINGUAL Q5M PRN #90 tab 08/13/19 10/01/21 Unknown Rx tablet metoprolol tartrate 25 mg tablet 25 mg PO DAILY 06/05/20 10/01/21 06/08/20 05:45 History acyclovir 800 mg tablet 800 mg PO DAILY 02/11/21 10/01/21 Unknown History cetirizine 10 mg tablet 10 mg PO DAILY 02/11/21 10/01/21 Unknown History dicyclomine 10 mg capsule 10 mg PO TID PRN 02/11/21 10/01/21 Unknown History levothyroxine 25 mcg capsule 25 mcg PO DAILY 02/11/21 10/01/21 Unknown History coenzyme Q10 75 mg capsule (Ultra 75 mg PO DAILY 03/30/21 10/01/21 Unknown History CoQ10) hydroxyzine HCl 50 mg tablet 50 mg PO QID PRN #120 tab 06/28/21 10/01/21 Unknown Rx rosuvastatin 40 mg tablet 40 mg PO DAILY 06/28/21 10/01/21 Unknown History fluoxetine 40 mg capsule (Prozac) 40 mg PO DAILY #30 cap 09/20/21 10/01/21 Unknown Rx lithium carbonate 150 mg capsule 150 mg PO BID #60 cap 09/20/21 10/01/21 Unknown Rx omega 8-doy-jld-fish oil 60 mg-90 1 cap PO DAILY 09/20/21 10/01/21 Unknown History mg-500 mg capsule (Fish Oil) Allergies Allergy/AdvReac Type Severity Reaction Status Date / Time bee venom protein (honey bee) Allergy Severe ALGY-Anaphy Verified 10/01/21 14:50 laxis morphine Allergy Severe ADR-Seizure Verified 10/01/21 14:50 venom-wasp Allergy Severe ALGY-Anaphy Verified 10/01/21 14:50 laxis PFSH NPU PFSH: Medical History Chronic diarrhea Coronary disease Dyslipidemia Guillain-Harris H. pylori infection Heart murmur HTN (hypertension), benign Pilonidal cyst Psychiatric care Single vessel coronary disease Smoker Vasospastic angina Conclusions 1. Nonobstructive coronary disease. 2. Normal LV function EF of 55%. There is mild coronary artery disease with one vessel disease. Anterior and inferior patel are normal. Normal left ventricular systolic function. Ejection fraction of 55%. Surgical History History of esophagogastroduodenoscopy (EGD) S/P colonoscopy S/P hernia repair Family History Mother Hypertension Diabetes Myocardial infarction Grandmother Stroke Father CAD (coronary artery disease) Social History Smoking and tobacco status: never smoked Quit status (tobacco): has quit using tobacco Year quit tobacco: 2020 Second hand smoke exposure: Yes (Once in a while.) Smoking risk assessment/counseling performed?: No Alcohol intake: current Alcohol intake frequency: holidays/special occasions only Desire information about alcohol rehabilitation?: No Counseling given: No Desire information about substance/drug rehabilitation?: No Counseling given: No Caregiver/support person: Yes Lives independently: No Household members: spouse Current occupational status: employed History of recent travel: No Current gender identity: Male Mental Status Exam MSE Comments: Mac is a casually dressed white male who appeared in some acute distress. He reported significant pain issues chronically and appeared initially lethargic his gait appeared steady with no evidence of any abnormal involuntary motor movements or tics. His mood was described as depressed. His affect was mood congruent and flat his thought process was linear and logical. His thought content showed evidence of perseveration regarding his medical issues his attention appeared variable. He did not appear to be responding to internal stimuli. There is was no evidence of any delusional thinking. He was alert and oriented to person place and time. Vitals/I&O/Wt Last Vital Signs Temp 98 F 11/16/21 13:06 Pulse 65 11/16/21 13:06 Resp 17 11/16/21 13:06 BP 136/84 11/16/21 13:06 Pulse Ox 97 11/16/21 13:06 Weight last 48 hrs Weight 79.56 kg Data NPU : 11/15/21 21:37 11/15/21 21:37 A&P Assessment and plan (1) Bipolar 2 disorder: Status: Acute (2) Depression with suicidal ideation: Status: Acute (3) Guillain-Harris: Status: Acute (4) Demyelinating neuropathy: Status: Acute (5) Peripheral neuropathy: Status: Acute Plan This is a 41 year old white male with bipolar II disorder and chronic pain issues who are admitted secondary to worsening depression and open to changes in his medications at this time. 1. Continue previous medications with plan to resume lithium 150mg bid and stop prozac. We will begin cymbalta 30mg in am as hope of aid with pain issues as well as anxiety and depression. 2. Encourage individual, group and milieu therapy 3. Continue q-15 minute check for safety 4. Will attempt to gather collateral information. Involuntary Hold Information 96 Hour Hold: 96 Hour Involuntary Admission: No Attestations NPU Medical Necessity Statement*: Inpatient hospitalization is medically necessary. Patient will be in the hospital for over two midnights. Likely length of stay is three to five days. 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
[2021-11-16] MEDS: pregabalin 75 mg Capsule PO (17:22)
[2021-11-16] MEDS: lithium carbonate 300 mg Capsule PO (17:30)
[2021-11-16 20:00] VITALS: BP 132/88; PULSE 67; RESP 17; TEMP 36.7; O2SAT 98
[2021-11-16] MEDS: atorvastatin 40 mg Tablet 80 MG PO (20:08)
[2021-11-16] MEDS: quetiapine 25 mg Tablet 50 MG PO (20:08)
[2021-11-16] MEDS: acetaminophen 325 mg Tablet 650 MG PO (21:29)
[2021-11-16] MEDS: OLANZapine 5 mg ODT PO (21:29)
--- NOTE | 2021-11-16 21:31 | PC.NURSE ---
Pt came to desk requesting sleep and pain meds. Stated his back was hurting 09/07. Trazodone for sleep was offered. Pt stated that trazodone leaves him confused and lethargic the following day, and he doesn't like that feeling. requested if there was anything else. Tylenol for his back pain was given, and pt was educated on Zyprexa zydis. Pt stated he would be willing to try it. Zyprexa zydis 5mg SL given. Will continue to monitor pt with Q15 minute checks.
[2021-11-17 06:00] VITALS: BP 116/71; PULSE 50; RESP 17; TEMP 36.4; O2SAT 97
[2021-11-17] MEDS: ibuprofen 600 mg Tablet PO (09:03)
[2021-11-17] MEDS: pregabalin 75 mg Capsule PO (09:04)
[2021-11-17] MEDS: multivitamin therapeutic Tablet 1 TAB PO (09:04)
[2021-11-17] MEDS: duloxetine 30 mg Capsule PO (09:04)
[2021-11-17] MEDS: thiamine 100 mg Tablet PO (09:04)
[2021-11-17] MEDS: folic acid 1 mg Tablet PO (09:04)
--- NOTE | 2021-11-17 09:11 | PC.NURSE ---
IN ROOM. REPORTS PAIN 5/10 ALL OVER BODY. MED NURSE TO ADMINISTER TYLENOL ORDERED. PT STATES HE IS WANTING TO LEAVE. EDUCATION PROVIDED THAT THE DRAdarsh WOULD HAVE TO MAKE THAT DECISION AND THAT THE PT HAD JUST COME IN A DAY AGO SO MAY WANT TO MONITOR HIM MORE. ALL QUESTIONS ANSWERED AND SUPPORT VOICED.
[2021-11-17] MEDS: acetaminophen 325 mg Tablet 650 MG PO (12:35)
[2021-11-17 15:11] VITALS: BP 116/71; PULSE 50; RESP 17; TEMP 36.4; O2SAT 97
--- NOTE | 2021-11-17 15:52 | W.PM.NPUDCS ---
Diagnoses at Discharge Discharge Diagnosis (1) Bipolar 2 disorder: Status: Acute (2) Depression with suicidal ideation: Status: Acute (3) Guillain-Louisa: Status: Acute (4) Demyelinating neuropathy: Status: Acute (5) Peripheral neuropathy: Status: Acute Reason for Visit Reason for Visit: Depression SI Brief History: Mac Bryan is a 41 year old male who presents today reporting he was admitted to the neuropsychiatric unit as his mental and physical health have been worsening and had a moment of weakness. He reports he was psychiatrically hospitalized once in 2016 for 1 week in [place] and back in 2001 he had Guillan Louisa Disease where he was paralyzed from the neck down which he endorses left him in a bad place mentally and physically. He currently sees a counselor at a clinic in [place] weekly and a psychiatrist Dr. Sawyer who he sees virtually. He could not the medications he is on though he reports he is on a few but reports he was diagnosed with severe depression and post traumatic stress disorder. He is currently taking Xanax 1 mg once daily for sleep and reports his one doctor had made him upset stating ?no one has severe anxiety like that? when discussing his Xanax. He reports flashbacks and visual and auditory hallucinations in the form of a shadow figure that he endorses is always present after the aforementioned incident where he was in the hospital paralyzed. He reports problems with alcohol around 27 years old after his father . He denies any deanna symptoms of withdrawal and currently drinks occasionally. He reports marijuana in the past daily but currently occasionally and denies any other illicit drug use. He reports he has been struggling with working on disability but has problems trying to balance work with taking care of his physical health. He reports he is more vocal about his mental health and came voluntarily to the hospital as he felt there were disagreements between him and his mother about going on a trip to see his sister in [place]. He reports he is reading the bible and working on interpreting it in his own way and making his confirmation. He could not explain if his thinking has been abnormal recently and could not recall anyone reporting he seemed to be thinking abnormally either. He reports he has been more depressed recently secondary to his physical health and finding out about the polyneuropathy recently. He also had the electrode study and endorses cramps and tension since the test. He reports there have been suggestions for him to use a cane while walking. He reports his panic attacks he has been experiencing have included symptoms of chest pain and shortness of breath which comes out of the blue for him and typically lasts 20 minutes to half a day. He reports when he is experiencing bad anxiety attacks he just goes to sleep and denies any anxiety prior to 2001. He reports a history of periods of time lasting 2 to 3 days and would experience racing thoughts, increased engagement in projects, excessive cleaning, talking faster than usual, increased spending and increased extraversion in his behaviors. He reports this event occurs every month every 2 to 3 days. He is currently taking [employer]. Psychiatric History: As above. Medications: acylovir, zyrtec, coenyzyme q10, prozac 40mg in am, synthroid 25mcg, [employer] 150mg twice a day.? Pregabalin 75mg twice a day.? Rosuvastatin 40mg daily, [place] Fatty Acids 500mg one capsule daily Substance Abuse History: As above. Family History: He denies mental health issues on either side of the family. Developmental History: He reports he was potentially in learning support for malay but did not report any issues with meeting his developmental delays. Psychosocial History: He reports he was born in [place] and raised by his biological parents. He has 5 older sisters who are products of the same union. He graduated high school and got a certifact in [employer] and [employer]. He is currently unemployed and lives with his mother as his father . He was but is currently as his partner a month after they were secondary to seizure issues. He reports they had known each other for a couple years before they started dating. He does not have any children. He reports things were rough throughout his life after coming out to his father but denies emotional, physical or emotional abuse. He endorses flashbacks Legal History: He did not report any legal issues during the interview. Medical History: He has chronic back pain, leg pain, fatigue, loss of fine motor skills and tremors. He has gastroesophageal reflux disease. 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 He is allergic to morphine and bee venom. ecessary and the clinically appropriate intervention at this time. We will monitor medications and make changes as indicated. Hospital Course Hospital Course During the hospitalization, patient had routine laboratory studies which were within normal limits except for few outliers. Additionally there was a general medical evaluation which was also within normal limits and revealed no new acute processes. Discharge Summary: At the time of discharge, lethality was denied and psychosis and suicidality was resolving. Mood and anxiety were well managed. Patient endorsed a plan to avoid all drugs of abuse and follow-up with the aftercare recommendations of the treatment team. Patient was evaluated and deemed to be absent credible lethality, and had achieved the maximum benefit from an inpatient hospitalization, so was discharged. Involuntary Hold Information 96 Hour Hold: 96 Hour Involuntary Admission: No Mental Status Exam MSE Comments: Mac is a casually dressed white male who appeared in no acute distress.? his gait appeared steady with no evidence of any abnormal involuntary motor movements or tics.? His mood was described as better. ? His affect was mood congruent and brighter his thought process was linear and logical.? His thought content showed no evidence of homicidal or suicidal ideation. ? He did not appear to be responding to internal stimuli.? There is? was no evidence of any delusional thinking.? He was alert and oriented to person place and time.? Discharge Data Studies Completed and Pending: Laboratory Results WBC 7.6 10^3/uL (4.0- 10.0) 11/15/21 21:37 RBC 4.78 10^6/uL (4.1 -5.3) 11/15/21 21:37 Hgb 14.0 g/dL (11.7-1 6.6) 11/15/21 21:37 Hct 42.8 % (42.0-52.0 ) 11/15/21 21:37 MCV 89.5 fl (80-94) 11/15/21 21:37 MCH 29.3 pg (28.0-34. 0) 11/15/21 21:37 MCHC 32.7 g/dL (30.0-3 6.0) 11/15/21 21:37 RDW 13.6 % (12.1-15.1 ) 11/15/21 21:37 Plt Count 245 10^3/cmm (130 -400) 11/15/21 21:37 MPV 9.6 fL (7.4-10.4) 11/15/21 21:37 Neut % (Auto) 54.6 % 11/15/21 21:37 Lymph % (Auto) 33.3 % 07/18/22 21:37 [place] % (Auto) 7.3 % 11/15/21 21:37 Eos % (Auto) 3.8 % 11/15/21 21:37 Baso % (Auto) 0.7 % 11/15/21 21:37 Neut # (Auto) 4.16 10^3/uL (1.8 -7.7) 11/15/21 21:37 Lymph # (Auto) 2.5 10^3/uL (0.8- 4.8) 11/15/21 21:37 [place] # (Auto) 0.6 10^3/uL (0.2- 0.9) 11/15/21 21:37 Eos # (Auto) 0.3 10^3/uL (0.0- 0.8) 11/15/21 21:37 Baso # (Auto) 0.1 10^3/uL (0.0- 0.1) 11/15/21 21:37 Nucleated RBC % (a uto) 0 % 11/15/21 21:37 Nucleated RBCs # 0.0 /100WBC 11/15/21 21:37 Sodium 144 mmol/L (136-1 45) 11/15/21 21:37 Potassium 4.0 mmol/L (3.5-5 .1) 11/15/21 21:37 Chloride 107 mmol/L (98-10 7) 11/15/21 21:37 Carbon Dioxide 21 mmol/L (22-29) L 11/15/21 21:37 Anion Gap 20.0 (5-19) H 11/15/21 21:37 BUN 9 mg/dL (6-20) 11/15/21 21:37 Creatinine 0.9 mg/dL (0.7-1. 2) 11/15/21 21:37 GFR Calculation 93.9 mL/min (90-1 30) 11/15/21 21:37 Glucose 91 mg/dL (65-115) 11/15/21 21:37 Calculated Osmolal ity 296 mOsm/kg (285- 295) H 11/15/21 21:37 Calcium 9.1 mg/dL (8.5-10 .5) 11/15/21 21:37 Total Bilirubin 0.2 mg/dL (0.15-1 .2) 11/15/21 21:37 AST 29 U/L (0-40) 11/15/21 21:37 ALT 25 U/L (0-41) 11/15/21 21:37 Alkaline Phosphata se 88 IU/L (40-130) 11/15/21 21:37 Total Protein 7.1 g/dL (6.6-8.7 ) 11/15/21 21:37 Albumin 4.6 g/dL (3.5-5.2 ) 11/15/21 21:37 Globulin 2.5 g/dL (1.3-4.6 ) 11/15/21 21:37 Lipase 32 U/L (13-60) 11/15/21 21:37 Salicylates < 0.3 mg/dL (3-10 ) L 11/15/21 21:37 Urine Opiates Scre en Negative ng/mL (N egative) 11/15/21 22:01 Acetaminophen < 5.0 ug/mL (10-3 0) L 11/15/21 21:37 Ur Barbiturates Sc reen Negative ng/mL (N egative) 11/15/21 22:01 Ur Phencyclidine S crn Negative ng/mL (N egative) 11/15/21 22:01 Ur Amphetamines Sc reen Negative ng/mL (N egative) 11/15/21 22:01 U Benzodiazepines Scrn Positive ng/mL (N egative) H 11/15/21 22:01 [employer] 0.1 mmol/L (0.6-1 .2) L 11/16/21 12:15 Urine Cocaine Scre en Negative ng/mL (N egative) 11/15/21 22:01 U Marijuana (THC) Screen Positive ng/mL (N egative) H 11/15/21 22:01 Ethyl Alcohol 182 mg/dL (0-10) H 11/15/21 21:37 Vitals: Last Vital Signs Temp 97.6 F 11/17/21 06:00 Pulse 50 L 11/17/21 06:00 Resp 17 11/17/21 06:00 BP 116/71 11/17/21 06:00 Pulse Ox 97 11/17/21 06:00 Discharge Plan Discharge Patient Disposition: Home Condition: Stable Prescriptions: New duloxetine 30 mg Capsule,Delayed Release(Dr/Ec) 30 mg PO DAILY Qty: 30 1RF quetiapine 100 mg tablet 100 mg PO BEDTIME 30 Days Qty: 30 1RF Continued Ultra CoQ10 75 mg capsule 75 mg PO DAILY 0RF rosuvastatin 40 mg tablet 40 mg PO DAILY 0RF omega 7-tiw-dqs-fish oil [Fish Oil] 60-90-500 mg capsule 1 cap PO DAILY 0RF lithium carbonate 150 mg capsule 150 mg PO BID Qty: 60 2RF pregabalin [Lyrica] 75 mg capsule 75 mg PO BID 0RF acyclovir 800 mg tablet 800 mg PO DAILY 0RF cetirizine 10 mg tablet 10 mg PO DAILY 0RF levothyroxine 25 mcg capsule 25 mcg PO DAILY 0RF nitroglycerin 0.4 mg tablet, sublingual 0.4 mg SUBLINGUAL Q5M PRN (Reason: chest pain) Qty: 90 0RF aspirin 81 mg Tablet,Delayed Release (Dr/Ec) 81 mg PO DAILY Qty: 30 0RF Hold Instructions: Resume on 06/11/20. pantoprazole 40 mg Tablet,Delayed Release (Dr/Ec) 40 mg PO DAILY Qty: 15 0RF metoprolol tartrate 25 mg Tablet 25 mg PO DAILY 0RF dicyclomine 10 mg capsule 10 mg PO TID PRN0RF Discontinued hydroxyzine HCl 50 mg tablet 50 mg PO QID PRN (Reason: insomnia) Qty: 120 2RF fluoxetine [Prozac] 40 mg capsule 40 mg PO DAILY Qty: 30 2RF Discharge Orders: Discharge Order (Routine); Ordered 11/17/21 Ordered By: Eren Lowe Referrals: Gucci Juan FNP [Primary Care Provider] - Paul Sawyer MD [Physician] - 11/22/21 11:45 am Discharge Diet: Usual diet Discharge Activity: Resume usual activity Patient Instructions: Opioid Safety Discharge Attestations NPU Time Spent in Discharge Care*: less than 30 min Status at Discharge: Cognitive status at discharge: cognitively intact, Behavioral status at discharge: cooperative, Coding Level of Care Code Established Pt Acute Chg FW DC note Patient Type Established History Problem Focused Exam Problem Focused Medical Decision Making Straight Forward Diagnoses Bipolar 2 disorder F31.81 Depression with suicidal ideation F32.A; R45.851 Guillain-Louisa G61.0 Demyelinating neuropathy G62.9 Peripheral neuropathy G62.9
== END 2021-11-17 15:27 | disposition home or self-care (01) | DRG 885 ==
LOC: ER 21:38 → NP 22:57
PROVIDERS: Admitting Provider Psychiatry & Neurology Psychiatry; Emergency Provider Emergency Medicine; PCP Nurse Practitioner; Visit Provider Psychiatry & Neurology Psychiatry
DX: F31.81 Bipolar II disorder (principal); R45.851 Suicidal ideations; I25.10 Atherosclerotic heart disease of native coronary artery without angina pectoris; E78.5 Hyperlipidemia, unspecified; G65.0 Sequelae of Guillain-Barre syndrome; I10 Essential (primary) hypertension; F17.200 Nicotine dependence, unspecified, uncomplicated; G89.29 Other chronic pain; M54.9 Dorsalgia, unspecified; Z88.5 Allergy status to narcotic agent; Z79.82 Long term (current) use of aspirin
CPT/HCPCS: 36415; 80053; 80178; 80306; 80307; 83690; 85025; 97150; 97165; 99285

== ENCOUNTER → 2021-12-27 10:34 | Outpatient (BNVA) | payer MEDICAID, SELFPAY | PROVIDERS: PCP Nurse Practitioner; Visit Provider Specialist | DX: G62.9 Polyneuropathy, unspecified (principal); F60.3 Borderline personality disorder; F41.1 Generalized anxiety disorder; G65.0 Sequelae of Guillain-Barre syndrome | CPT/HCPCS: 99213 ==

== ENCOUNTER 2022-10-03 18:30 | Emergency (ER) | payer MEDICAID, SELFPAY ==
[2022-10-03 18:55] VITALS: BP 131/85; PULSE 78; RESP 16; TEMP 36.7; O2SAT 96; BMI 32.3
--- NOTE | 2022-10-03 21:23 | ED_ITS ---
HPI - Animal Bite General: Chief Complaint: Animal Bite Stated Complaint: Dog Bites Legs and Hips Time Seen by Provider: 10/03/22 21:18 Source: patient Mode of arrival: ambulatory Limitations: no limitations History of Present Illness: 42-year-old male who states that he has been by and off this evening. He states he is actually bit by a corgie and a daschound on his bilateral legs and his lower abdomen. Bleeding is controlled he has minimal pain he is unsure when his last tetanus was. It was his neighbors dog. Associated symptoms: Deny fever(s) or headache(s) Review of Systems Const: Denies: fever(s) Card: Denies: chest pain Resp: Denies: dyspnea GI: Denies: abdominal pain Musc: Denies: back pain Skin/Breast: Denies: rash Neuro: Denies: headache(s) PFSH ED PFSH: Medical History Bipolar 2 disorder Chronic diarrhea Coronary disease Dyslipidemia Guillain-[place] H. pylori infection Heart murmur HTN (hypertension), benign Pilonidal cyst Psychiatric care Single vessel coronary disease Smoker Vasospastic angina Conclusions 1. Nonobstructive coronary disease. 2. Normal LV function EF of 55%. There is mild coronary artery disease with one vessel disease. Anterior and inferior patel are normal. Normal left ventricular systolic function. Ejection fraction of 55%. Surgical History History of esophagogastroduodenoscopy (EGD) S/P colonoscopy S/P hernia repair Family History Mother Hypertension Diabetes Myocardial infarction Grandmother Stroke Father CAD (coronary artery disease) Social History Smoking and tobacco status: former smoker Quit status (tobacco): has quit using tobacco Year quit tobacco: 2020 Second hand smoke exposure: Yes (Once in a while.) Smoking risk assessment/counseling performed?: No Alcohol intake: former Year of sobriety/quit date alcohol: 2021 Desire information about alcohol rehabilitation?: No Counseling given: No Last alcohol use date: 11/16/21 Other details last alcohol use: Was d/t tooth pain. Substance/Drug Use: former Date of last use: 2011. Desire information about substance/drug rehabilitation?: No Counseling given: No Caregiver/support person: Yes Lives independently: No Household members: spouse Current occupational status: employed Do you think of yourself as: Lesbian/Linares/Homosexual Current gender identity: Male Physical Exam Const: COMMON NORMALS: no acute distress and patient oriented x3 HENMT: COMMON NORMALS: normocephalic HEAD & SCALP: normocephalic Eye: COMMON NORMALS: conjunctivae normal CONJUNCTIVA: Yes conjunctivae normal Neck/C-Spine: COMMON NORMALS: supple Chest: COMMONS NORMALS: normal inspection of the chest Resp: COMMON NORMALS: normal respiratory effort Cardio: COMMON NORMALS: regular rate RATE: regular rate GI: OTHER: Puncture wound to lower abdomen from dog bite Extremity: NARRATIVE EXTREMITY EXAM: Puncture wound to bilateral legs from dog bite no laceration bleeding controlled Neuro: COMMON NORMALS: patient oriented x3 Psych: COMMON NORMALS: mental status grossly normal Skin: COMMON NORMALS: no rashes or lesions noted GENERAL SKIN EXAM: no rashes or lesions noted Course Vital Signs: Vital signs: Vital Signs Temperature 98.1 F 10/03/22 18:55 Pulse Rate 78 10/03/22 18:55 Respiratory Rate 16 10/03/22 18:55 Blood Pressure 131/85 10/03/22 18:55 Pulse Oximetry 96 10/03/22 18:55 Oxygen Delivery Me thod Room Air 10/03/22 18:55 MDM - Animal Bite Medical Decision Making Patient presents here with dog bites he is bites to both legs and his abdomen all puncture wounds none that needs sutures. We will update him on his tetanus states the neighbors dog he is going to call animal control with police and talk to neighbors about the rabies status I did inform there is any signs of they are not updated he needs return for the rabies vaccination protocol we will place him on Augmentin for prophylaxis he understands agrees to plan. Medical Records I reviewed the patient's medical records. Discharge Plan Discharge Patient Disposition: Home Clinical Impression: Dog bite Condition: Stable Prescriptions: New amoxicillin-pot clavulanate [Augmentin] 500-125 mg tablet 1 tab PO BID Qty: 14 0RF No Action Ultra CoQ10 75 mg capsule 75 mg PO DAILY rosuvastatin 40 mg tablet 40 mg PO DAILY omega 0-lsk-npe-fish oil [Fish Oil] 60-90-500 mg capsule 1 cap PO DAILY pregabalin [Lyrica] 75 mg capsule 75 mg PO BID acyclovir 800 mg tablet 800 mg PO DAILY cetirizine 10 mg tablet 10 mg PO DAILY levothyroxine 25 mcg capsule 25 mcg PO DAILY elderberry fruit 200 mg capsule See Rx Instructions PO DAILY Rx Instructions: 100 mg PO daily; pantoprazole 40 mg tablet,delayed release (DR/EC) 40 mg PO DAILY Qty: 60 3RF duloxetine 60 mg capsule,delayed release(DR/EC) 60 mg PO DAILY Qty: 30 2RF lithium carbonate 150 mg capsule 150 mg PO BID Qty: 60 2RF quetiapine 100 mg tablet 100 mg PO BEDTIME 30 Days Qty: 30 2RF nitroglycerin 0.4 mg tablet, sublingual 0.4 mg SUBLINGUAL Q5M PRN (Reason: chest pain) Qty: 90 0RF aspirin 81 mg Tablet,Delayed Release (Dr/Ec) 81 mg PO DAILY Qty: 30 0RF Hold Instructions: Resume on 06/11/20. metoprolol tartrate 25 mg Tablet 25 mg PO DAILY dicyclomine 10 mg capsule 10 mg PO TID PRN Discharge Orders: Discharge ED (Routine); Ordered 10/03/22 Ordered By: Rudolph Delgado Referrals: Gucci Juan FNP [Primary Care Provider] - 1-3 days Discharge Diet: Advance as tolerated Discharge Activity: Resume usual activity Patient Instructions: Animal Bite (ED) Coding Level of Care Code ED Typewriter Aligner for Estrellita Ramos
[2022-10-03] MEDS: amoxicillin-clav 875-125 mg Tablet 1 TAB PO (21:28)
[2022-10-03] MEDS: tetanus-dipt-pertussis 0.5 mL SDV IM (21:28)
[2022-10-03 21:37] VITALS: BP 123/87; PULSE 70; RESP 18; O2SAT 94
== END 2022-10-03 21:38 | disposition home or self-care (01) ==
PROVIDERS: Emergency Provider Emergency Medicine; PCP Nurse Practitioner
DX: S81.832A Puncture wound without foreign body, left lower leg, initial encounter (principal); S81.831A Puncture wound without foreign body, right lower leg, initial encounter; S31.139A Puncture wound of abdominal wall without foreign body, unspecified quadrant without penetration into peritoneal cavity, initial encounter; W54.0XXA Bitten by dog, initial encounter; Z23 Encounter for immunization
CPT/HCPCS: 90715; 99283

== ENCOUNTER 2022-10-05 12:13 | Emergency (ER) | payer MEDICAID, SELFPAY ==
--- NOTE | 2022-10-05 12:14 | ED_ITS ---
HPI - Recheck/Abnormal Lab/Rx General: Chief Complaint: Animal Bite Stated Complaint: needs rabies shot Time Seen by Provider: 10/05/22 12:14 Source: patient and family Mode of arrival: ambulatory Limitations: no limitations History of Present Illness: Patient is a 42-year-old male who presents to ED today requesting he was told to come here for the start of rabies postexposure prophylaxis series. Patient was seen here yesterday after multiple dog bites from his neighbors dog. Animal control was contacted and confirmed that the dogs are not up-to-date on rabies shots therefore the health department recommended patient come here for rabies PEP. He states he has filled his antibiotics and started on those. He states he does not have any complaints in regards to the bites. Tetanus was updated yesterday. complaint: other (Rabies PEP) Initial visit (ago): day(s) (Yesterday) Initial visit for: animal bite Returns today for: rabies shot Symptoms since prior visit: no new symptoms Associated symptoms: none Review of Systems Const: Denies: fever(s), chills, body aches, fatigue or malaise Card: Denies: chest pain Resp: Denies: dyspnea GI: Denies: nausea or vomiting Musc: Denies: neck pain, back pain, extremity pain, extremity swelling, joint pain, joint swelling, joint redness or joint warmth Skin/Breast: Reports: other (Multiple dog bites that seem to be healing well) Neuro: Denies: headache(s), numbness in extremities, weakness in extremities, sensory changes, difficulty walking or dizziness [facility] ED PFSH: Medical History Bipolar 2 disorder Chronic diarrhea Coronary disease Dyslipidemia Guillain-[place] H. pylori infection Heart murmur HTN (hypertension), benign Pilonidal cyst Psychiatric care Single vessel coronary disease Smoker Vasospastic angina Conclusions 1. Nonobstructive coronary disease. 2. Normal LV function EF of 55%. There is mild coronary artery disease with one vessel disease. Anterior and inferior patel are normal. Normal left ventricular systolic function. Ejection fraction of 55%. Surgical History History of esophagogastroduodenoscopy (EGD) S/P colonoscopy S/P hernia repair Family History Mother Hypertension Diabetes Myocardial infarction Grandmother Stroke Father CAD (coronary artery disease) Social History Smoking and tobacco status: former smoker Quit status (tobacco): has quit using tobacco Year quit tobacco: 2020 Second hand smoke exposure: Yes (Once in a while.) Smoking risk assessment/counseling performed?: No Alcohol intake: former Year of sobriety/quit date alcohol: 2021 Desire information about alcohol rehabilitation?: No Counseling given: No Last alcohol use date: 11/16/21 Other details last alcohol use: Was d/t tooth pain. Substance/Drug Use: former Date of last use: 2011. Desire information about substance/drug rehabilitation?: No Counseling given: No Caregiver/support person: Yes Lives independently: No Household members: spouse Current occupational status: employed Do you think of yourself as: Lesbian/Linares/Homosexual Current gender identity: Male Physical Exam Const: COMMON NORMALS: no acute distress, average body habitus, patient oriented x3, no limitations, healthy appearing, alert and well nourished Extremity: NARRATIVE EXTREMITY EXAM: Multiple scattered dog bites throughout upper and lower extremities all of which are superficial and seem to be healing well. There is no redness, swelling, purulent drainage, streaking, or other signs of infections noted. Neuro: COMMON NORMALS: patient oriented x3 SENSORIUM/ORIENTATION: Yes alert Course Vital Signs: Vital signs: Vital Signs Temperature 98.5 F 10/05/22 12:25 Pulse Rate 85 10/05/22 13:45 Respiratory Rate 14 10/05/22 13:45 Blood Pressure 138/91 10/05/22 13:45 Pulse Oximetry 99 10/05/22 13:45 Oxygen Delivery Me thod Room Air 10/05/22 12:44 MDM - Recheck/Abnormal Lab/Rx Medical Decision Making Rabies PEP will be initiated on today's visit. Recommend continue antibiotics. Tetanus was updated yesterday. Patient will be given schedule for days 3 7 and 14 rabies immunizations. Discharge Plan Discharge Patient Disposition: Home Clinical Impression: Encounter for prophylactic administration of rabies immune globulin, Need for immunization against rabies Condition: Stable Prescriptions: No Action Ultra CoQ10 75 mg capsule 75 mg PO DAILY rosuvastatin 40 mg tablet 40 mg PO DAILY omega 8-ptv-evp-fish oil [Fish Oil] 60-90-500 mg capsule 1 cap PO DAILY pregabalin [Lyrica] 75 mg capsule 75 mg PO BID acyclovir 800 mg tablet 800 mg PO DAILY cetirizine 10 mg tablet 10 mg PO DAILY levothyroxine 25 mcg capsule 25 mcg PO DAILY elderberry fruit 200 mg capsule See Rx Instructions PO DAILY Rx Instructions: 100 mg PO daily; pantoprazole 40 mg tablet,delayed release (DR/EC) 40 mg PO DAILY Qty: 60 3RF duloxetine 60 mg capsule,delayed release(DR/EC) 60 mg PO DAILY Qty: 30 2RF lithium carbonate 150 mg capsule 150 mg PO BID Qty: 60 2RF quetiapine 100 mg tablet 100 mg PO BEDTIME 30 Days Qty: 30 2RF nitroglycerin 0.4 mg tablet, sublingual 0.4 mg SUBLINGUAL Q5M PRN (Reason: chest pain) Qty: 90 0RF aspirin 81 mg Tablet,Delayed Release (Dr/Ec) 81 mg PO DAILY Qty: 30 0RF Hold Instructions: Resume on 06/11/20. metoprolol tartrate 25 mg Tablet 25 mg PO DAILY dicyclomine 10 mg capsule 10 mg PO TID PRN Augmentin 500-125 mg tablet 1 tab PO BID Qty: 14 0RF Discharge Orders: Discharge ED (Routine); Ordered 10/05/22 Ordered By: Freida Dahl Referrals: Gucci Juan, FIRST PRESS OPERATOR [Primary Care Provider] - Patient Instructions: Rabies Vaccine (By injection), Rabies Immune Globulin (By injection) Activity Restrictions/Additional Instructions: As we discussed you should have been provided a schedule for your repeat rabies immunization doses on days 3, 7 and 14. These may be able to be completed through a walk-in clinic or primary care office. I recommend you call ahead of time to confirm availability. If not you may return to the emergency department for the shots. Coding Level of Care Code ED Masking Machine Operator for Estrellita Ramos
[2022-10-05 12:25] VITALS: BP 144/103; PULSE 67; RESP 17; TEMP 36.9; O2SAT 94; BMI 30.7
[2022-10-05 12:44] VITALS: BP 144/103; RESP 18; O2SAT 94
[2022-10-05] MEDS: rabies vaccine 2.5 unit SDV IM (13:22)
[2022-10-05 13:45] VITALS: BP 138/91; PULSE 85; RESP 14; O2SAT 99
== END 2022-10-05 13:45 | disposition home or self-care (01) ==
PROVIDERS: Emergency Provider Physician Assistant; PCP Nurse Practitioner
DX: Z29.14 Encounter for prophylactic rabies immune globulin (principal); Z20.3 Contact with and (suspected) exposure to rabies; Z23 Encounter for immunization; W54.0XXA Bitten by dog, initial encounter
CPT/HCPCS: 90375; 90675; 99283

== ENCOUNTER 2022-10-08 10:27 | Emergency (ER) | payer MEDICAID, SELFPAY ==
[2022-10-08 10:31] VITALS: BP 120/84; PULSE 70; RESP 16; O2SAT 96
--- NOTE | 2022-10-08 10:32 | ED_ITS ---
HPI - General Adult General: Chief complaint: General Medical Stated complaint: 2nd rabies shot Time Seen by Provider: 10/08/22 10:28 History of Present Illness: Patient is here for second rabies shot. Patient was started on the rabies series 3 days ago this will be a second shot. Patient was bit by the neighbors dog who they can not confirm he is up-to-date on his rabies. Patient was prescribed Augmentin for the dog bites themselves. They required no sutures. Review of Systems General: Reports: 10 or more systems reviewed and unremarkable except in HPI and below PFSH ED PFSH: Medical History Bipolar 2 disorder Chronic diarrhea Coronary disease Dyslipidemia Guillain-[place] H. pylori infection Heart murmur HTN (hypertension), benign Pilonidal cyst Psychiatric care Single vessel coronary disease Smoker Vasospastic angina Conclusions 1. Nonobstructive coronary disease. 2. Normal LV function EF of 55%. There is mild coronary artery disease with one vessel disease. Anterior and inferior patel are normal. Normal left ventricular systolic function. Ejection fraction of 55%. Surgical History History of esophagogastroduodenoscopy (EGD) S/P colonoscopy S/P hernia repair Family History Mother Hypertension Diabetes Myocardial infarction Grandmother Stroke Father CAD (coronary artery disease) Social History Smoking and tobacco status: former smoker Quit status (tobacco): has quit using tobacco Year quit tobacco: 2020 Second hand smoke exposure: Yes (Once in a while.) Smoking risk assessment/counseling performed?: No Alcohol intake: former Year of sobriety/quit date alcohol: 2021 Desire information about alcohol rehabilitation?: No Counseling given: No Last alcohol use date: 11/16/21 Other details last alcohol use: Was d/t tooth pain. Substance/Drug Use: former Date of last use: Marijuana - 2011. Desire information about substance/drug rehabilitation?: No Counseling given: No Caregiver/support person: Yes Lives independently: No Household members: spouse Current occupational status: employed Do you think of yourself as: Lesbian/Linares/Homosexual Current gender identity: Male Physical Exam Const: COMMON NORMALS: no acute distress, average body habitus, patient oriented x3, no limitations, healthy appearing, alert and well nourished HENMT: COMMON NORMALS: normocephalic, atraumatic, hearing grossly normal bilaterally and external ears normal HEAD & SCALP: normocephalic and atraumatic EXTERNAL EAR: Yes external ears normal Neck/C-Spine: COMMON NORMALS: full ROM, no lymphadenopathy and no JVD Chest: COMMONS NORMALS: normal inspection of the chest and normal palpation of entire chest wall Resp: COMMON NORMALS: normal respiratory effort, No retractions, No use of accessory muscles and clear to auscultation bilaterally AUSCULTATION: clear to auscultation bilaterally Cardio: COMMON NORMALS: no JVD, regular rate, regular rhythm, S1 normal heart sound present, S2 normal heart sound present, No gallops present (Cardio), No clicks present (Cardio), No murmurs present (Cardio) and No rub (Cardio) RATE: regular rate RHYTHM: regular rhythm HEART SOUNDS: S1 normal heart sound present and S2 normal heart sound present Neuro: COMMON NORMALS: patient oriented x3 SENSORIUM/ORIENTATION: Yes alert Course Vital Signs: Vital signs: Vital Signs Pulse Rate 70 10/08/22 10:31 Respiratory Rate 16 10/08/22 10:31 Blood Pressure 120/84 10/08/22 10:31 Pulse Oximetry 96 10/08/22 10:31 Oxygen Delivery Me thod Room Air 10/08/22 10:31 MDM - General Adult Medical Decision Making Patient is here for his second dose of rabies vaccine patient be discharged home in told to follow-up for his third and fourth doses as directed. Discharge Plan Discharge Patient Disposition: Home Clinical Impression: Encounter for prophylactic administration of rabies immune globulin Condition: Stable Prescriptions: No Action Ultra CoQ10 75 mg capsule 75 mg PO DAILY rosuvastatin 40 mg tablet 40 mg PO DAILY omega 0-rxk-gmi-fish oil [Fish Oil] 60-90-500 mg capsule 1 cap PO DAILY pregabalin [Lyrica] 75 mg capsule 75 mg PO BID acyclovir 800 mg tablet 800 mg PO DAILY cetirizine 10 mg tablet 10 mg PO DAILY levothyroxine 25 mcg capsule 25 mcg PO DAILY elderberry fruit 200 mg capsule See Rx Instructions PO DAILY Rx Instructions: 100 mg PO daily; pantoprazole 40 mg tablet,delayed release (DR/EC) 40 mg PO DAILY Qty: 60 3RF duloxetine 60 mg capsule,delayed release(DR/EC) 60 mg PO DAILY Qty: 30 2RF lithium carbonate 150 mg capsule 150 mg PO BID Qty: 60 2RF quetiapine 100 mg tablet 100 mg PO BEDTIME 30 Days Qty: 30 2RF nitroglycerin 0.4 mg tablet, sublingual 0.4 mg SUBLINGUAL Q5M PRN (Reason: chest pain) Qty: 90 0RF aspirin 81 mg Tablet,Delayed Release (Dr/Ec) 81 mg PO DAILY Qty: 30 0RF Hold Instructions: Resume on 06/11/20. metoprolol tartrate 25 mg Tablet 25 mg PO DAILY dicyclomine 10 mg capsule 10 mg PO TID PRN Augmentin 500-125 mg tablet 1 tab PO BID Qty: 14 0RF cephalexin 500 mg capsule 500 mg PO Q6H 7 Days Qty: 28 0RF Discharge Orders: Discharge ED (Routine); Ordered 10/08/22 Ordered By: Jordi Sanders Referrals: Gucci Juan, ASSEMBLY AND PACKING SUPERVISOR [Primary Care Provider] - Patient Instructions: Rabies Vaccine (By injection) (Imovax Rabies, RabAvert) Activity Restrictions/Additional Instructions: You have been given your second rabies shot here today your third will be in 4 days and your fourth will be in 7 days after that. Please continue to get these as directed. Return to the emergency room if you have any signs and symptoms. Coding Level of Care Code ED Cloth Sponger for Estrellita Ramos
[2022-10-08] MEDS: rabies vaccine 2.5 unit SDV IM (10:54)
== END 2022-10-08 10:59 | disposition home or self-care (01) ==
PROVIDERS: Emergency Provider Emergency Medicine; PCP Nurse Practitioner
DX: Z29.14 Encounter for prophylactic rabies immune globulin (principal); Z20.3 Contact with and (suspected) exposure to rabies; Z23 Encounter for immunization; W54.0XXA Bitten by dog, initial encounter; I25.10 Atherosclerotic heart disease of native coronary artery without angina pectoris; E78.5 Hyperlipidemia, unspecified; I10 Essential (primary) hypertension; Z87.891 Personal history of nicotine dependence
CPT/HCPCS: 90675; 99283

== ENCOUNTER 2022-10-12 09:41 | Emergency (ER) | payer MEDICAID, SELFPAY ==
--- NOTE | 2022-10-12 09:47 | ED_ITS ---
HPI - General Adult General: Chief complaint: Animal Bite Stated complaint: third rabies shot Time Seen by Provider: 10/12/22 09:42 History of Present Illness: Patient is a 42-year-old male who comes to the ED for his third rabies shot. Patient was seen here in the ED for dog bite back on October 03 and started on rabies prophylaxis. Dog bite was to his legs bilaterally in his lower abdomen. Most of patient's dog bites are healing well but there is one on his left leg that he is concerned about it may be starting to become infected. Patient states there is been a little bit of purulent drainage from wound. He took his last dose of Augmentin yesterday. He reports having some mild body aches and chills after his past rabies shots. Denies any other symptoms. Associated symptoms: Deny chest pain, dyspnea, headache(s), nausea, rash, pal pitations or vomiting Review of Systems Const: Denies: fever(s), chills or fatigue Eyes: Denies: change in vision or eye discomfort ENMT: Denies: throat pain, odynophagia, nasal discharge or nasal congestion Card: Denies: chest pain, palpitations, edema, swelling of feet/ankles, dyspnea on exertion or orthopnea Resp: Denies: dyspnea, productive cough or non-productive cough GI: Denies: abdominal pain, nausea, vomiting, diarrhea, constipation or hematochezia : Denies: flank pain, difficulty urinating, dysuria or hematuria Musc: Denies: neck pain, back pain or extremity swelling Skin/Breast: Reports: new lesions (Dog bite to left lower leg.); Denies: rash Neuro: Denies: headache(s), numbness in extremities or weakness in extremities PFS ED PFSH: Medical History Bipolar 2 disorder Chronic diarrhea Coronary disease Dyslipidemia Guillain-[place] H. pylori infection Heart murmur HTN (hypertension), benign Pilonidal cyst Psychiatric care Single vessel coronary disease Smoker Vasospastic angina Conclusions 1. Nonobstructive coronary disease. 2. Normal LV function EF of 55%. There is mild coronary artery disease with one vessel disease. Anterior and inferior patel are normal. Normal left ventricular systolic function. Ejection fraction of 55%. Surgical History History of esophagogastroduodenoscopy (EGD) S/P colonoscopy S/P hernia repair Family History Mother Hypertension Diabetes Myocardial infarction Grandmother Stroke Father CAD (coronary artery disease) Social History Smoking and tobacco status: former smoker Quit status (tobacco): has quit using tobacco Year quit tobacco: 2020 Second hand smoke exposure: Yes (Once in a while.) Smoking risk assessment/counseling performed?: No Alcohol intake: former Year of sobriety/quit date alcohol: 2021 Desire information about alcohol rehabilitation?: No Counseling given: No Last alcohol use date: 11/16/21 Other details last alcohol use: Was d/t tooth pain. Substance/Drug Use: former Date of last use: 2011. Desire information about substance/drug rehabilitation?: No Counseling given: No Caregiver/support person: Yes Lives independently: No Household members: spouse Current occupational status: employed Do you think of yourself as: Lesbian/Linares/Homosexual Current gender identity: Male Physical Exam Const: COMMON NORMALS: patient oriented x3 HENMT: COMMON NORMALS: normocephalic HEAD & SCALP: normocephalic MOUTH: Normal oral and palatal mucosa present THROAT: posterior oropharynx normal and uvula midline Neck/C-Spine: COMMON NORMALS: supple GENERAL: Yes normal visual inspection Resp: COMMON NORMALS: normal respiratory effort, No retractions, No use of accessory muscles and clear to auscultation bilaterally AUSCULTATION: clear to auscultation bilaterally Cardio: COMMON NORMALS: regular rate, regular rhythm, S1 normal heart sound present, S2 normal heart sound present, No gallops present (Cardio), No clicks present (Cardio), No murmurs present (Cardio) and Peripheral pulses 2+ throughout RATE: regular rate RHYTHM: regular rhythm HEART SOUNDS: S1 normal heart sound present and S2 normal heart sound present PERIPHERAL PULSES: Peripheral pulses 2+ throughout GI: COMMON NORMALS: Normal to inspection, nondistended, normoactive bowel sounds present, Soft to palpation, non-tender and no masses PALPATION: Yes Soft to palpation : COMMON NORMALS: Yes no CVA tenderness BLADDER/KIDNEY EXAM: Yes no CVA tenderness Back/Pelvis: COMMON NORMALS: no CVA tenderness Extremity: COMMON NORMALS: normal to inspection NARRATIVE EXTREMITY EXAM: Left lower leg?dog bite wound has some erythema, warmth and tenderness. Findings suggestive of cellulitis developing. Neuro: COMMON NORMALS: patient oriented x3 GAIT: Yes Normal gait present Skin: GENERAL SKIN EXAM: dry skin Course Vital Signs: Vital signs: Vital Signs Temperature 98.4 F 10/12/22 09:53 Pulse Rate 85 10/12/22 09:53 Respiratory Rate 18 10/12/22 09:53 Blood Pressure 126/82 10/12/22 09:53 Pulse Oximetry 96 10/12/22 09:53 Oxygen Delivery Me thod Room Air 10/12/22 09:53 MDM - General Adult Medical Decision Making Patient is a 42-year-old male who comes to the ED for his third rabies shot. Patient was seen here in the ED for dog bite back on October 03 and started on rabies prophylaxis. Dog bite was to his legs bilaterally in his lower abdomen. Most of patient's dog bites are healing well but there is one on his left leg that he is concerned about it may be starting to become infected. He took his last dose of Augmentin yesterday. He reports having some mild body aches and chills after his past rabies shots. Denies any other symptoms.vital stable. Left lower leg?dog bite wound has some erythema, warmth and tenderness. Findings suggestive of cellulitis developing. Patient was given third rabies shot. He was diagnosed with encounter for repeat rabies prophylaxis in the series and cellulitis. He was sent home with a prescription for Keflex. Told to follow-up in a week to get his fourth and final rabies shot. Patient understood and agreed with plan. Discharge Plan Discharge Patient Disposition: Home Clinical Impression: Encounter for repeat administration of rabies vaccination Cellulitis Qualifiers: Site of cellulitis: extremity Site of cellulitis of extremity: lower extremity Laterality: left Qualified Code(s): L03.116 - Cellulitis of left lower limb Condition: Stable Prescriptions: New cephalexin 500 mg capsule 500 mg PO Q6H 7 Days Qty: 28 0RF No Action Ultra CoQ10 75 mg capsule 75 mg PO DAILY rosuvastatin 40 mg tablet 40 mg PO DAILY omega 5-bjd-hgs-fish oil [Fish Oil] 60-90-500 mg capsule 1 cap PO DAILY pregabalin [Lyrica] 75 mg capsule 75 mg PO BID acyclovir 800 mg tablet 800 mg PO DAILY cetirizine 10 mg tablet 10 mg PO DAILY levothyroxine 25 mcg capsule 25 mcg PO DAILY elderberry fruit 200 mg capsule See Rx Instructions PO DAILY Rx Instructions: 100 mg PO daily; pantoprazole 40 mg tablet,delayed release (DR/EC) 40 mg PO DAILY Qty: 60 3RF duloxetine 60 mg capsule,delayed release(DR/EC) 60 mg PO DAILY Qty: 30 2RF lithium carbonate 150 mg capsule 150 mg PO BID Qty: 60 2RF quetiapine 100 mg tablet 100 mg PO BEDTIME 30 Days Qty: 30 2RF nitroglycerin 0.4 mg tablet, sublingual 0.4 mg SUBLINGUAL Q5M PRN (Reason: chest pain) Qty: 90 0RF aspirin 81 mg Tablet,Delayed Release (Dr/Ec) 81 mg PO DAILY Qty: 30 0RF Hold Instructions: Resume on 06/11/20. metoprolol tartrate 25 mg Tablet 25 mg PO DAILY dicyclomine 10 mg capsule 10 mg PO TID PRN Augmentin 500-125 mg tablet 1 tab PO BID Qty: 14 0RF Discharge Orders: Discharge ED (Routine); Ordered 10/12/22 Ordered By: Mac Lou Referrals: Gucci Juan FNP [Primary Care Provider] - Discharge Diet: Regular Discharge Activity: Increase activity as tolerated Patient Instructions: Cellulitis (ED) Activity Restrictions/Additional Instructions: Follow-up with medical provider as directed. Follow-up to get fourth and final rabies shot next Monday. Take medications as prescribed. Return to the ER or your medical provider if condition worsens. Please read and understand discharge instructions. Thank you for choosing [facility] for your healthcare needs today. Please realize this is an emergency room and that we are providing you with a medical screening exam and this may not be complete and all inclusive of all the testing and or work up that you may need to determine your ailment or severity of your illness. It is very important that you follow up as instructed or that you return to the Emergency Department should you have concerns or if your condition changes or worsens in any way. Coding Level of Care Code ED Straightedge Machine Operator Helper for Estrellita Ramos
[2022-10-12 09:53] VITALS: BP 126/82; PULSE 85; RESP 18; TEMP 36.9; O2SAT 96
[2022-10-12] MEDS: rabies vaccine 2.5 unit SDV IM (10:06)
[2022-10-12 10:17] VITALS: BP 110/80; PULSE 73; O2SAT 95
== END 2022-10-12 10:18 | disposition home or self-care (01) ==
PROVIDERS: Emergency Provider Physician Assistant; PCP Nurse Practitioner
DX: R51.9 Headache, unspecified (principal); Z23 Encounter for immunization; Z20.3 Contact with and (suspected) exposure to rabies; S81.852A Open bite, left lower leg, initial encounter; S81.851A Open bite, right lower leg, initial encounter; S31.159A Open bite of abdominal wall, unspecified quadrant without penetration into peritoneal cavity, initial encounter; L03.116 Cellulitis of left lower limb; W54.0XXA Bitten by dog, initial encounter
CPT/HCPCS: 90675; 99283

== ENCOUNTER 2022-10-19 08:52 | Emergency (ER) | payer MEDICAID, SELFPAY ==
[2022-10-19 09:12] VITALS: BP 111/69; PULSE 60; RESP 16; TEMP 36.7; O2SAT 92
--- NOTE | 2022-10-19 09:15 | W.ED.ANIMALB ---
HPI - Animal Bite General: Chief Complaint: Animal Bite Stated Complaint: 4th rabies Time Seen by Provider: 10/19/22 08:57 History of Present Illness: Patient is a 42-year-old male who comes to the ED for his fourth and final rabies shot. Patient was seen here in the ED back on October 03 for dog bite to left leg. He then came back to the ED and was started on rabies prophylaxis and given rabies Ig and rabies vaccine on October 05. He has gotten his second and third rabies shot on October 08 and October 12 respectively. He states that his dog bites are healing up well. Denies any reactions or symptoms after last rabies shot. Patient states he has 3 days left on his antibiotic and he has been taking it as prescribed. Denies any fevers. Associated symptoms: Deny chills, fever(s) or headache(s) Review of Systems Const: Denies: fever(s), chills or fatigue Eyes: Denies: change in vision or eye discomfort ENMT: Denies: throat pain, odynophagia, nasal discharge or nasal congestion Card: Denies: chest pain, palpitations, edema, swelling of feet/ankles, dyspnea on exertion or orthopnea Resp: Denies: dyspnea, productive cough or non-productive cough GI: Denies: abdominal pain, nausea, vomiting, diarrhea, constipation or hematochezia : Denies: flank pain, difficulty urinating, dysuria or hematuria Musc: Denies: neck pain, back pain or extremity swelling Skin/Breast: Denies: rash or new lesions Neuro: Denies: headache(s), numbness in extremities or weakness in extremities PFS ED PFSH: Medical History Bipolar 2 disorder Chronic diarrhea Coronary disease Dyslipidemia Guillain-[place] H. pylori infection Heart murmur HTN (hypertension), benign Pilonidal cyst Psychiatric care Single vessel coronary disease Smoker Vasospastic angina Conclusions 1. Nonobstructive coronary disease. 2. Normal LV function EF of 55%. There is mild coronary artery disease with one vessel disease. Anterior and inferior patel are normal. Normal left ventricular systolic function. Ejection fraction of 55%. Surgical History History of esophagogastroduodenoscopy (EGD) S/P colonoscopy S/P hernia repair Family History Mother Hypertension Diabetes Myocardial infarction Grandmother Stroke Father CAD (coronary artery disease) Social History Smoking and tobacco status: former smoker Quit status (tobacco): has quit using tobacco Year quit tobacco: 2020 Second hand smoke exposure: Yes (Once in a while.) Smoking risk assessment/counseling performed?: No Alcohol intake: former Year of sobriety/quit date alcohol: 2021 Desire information about alcohol rehabilitation?: No Counseling given: No Last alcohol use date: 11/16/21 Other details last alcohol use: Was d/t tooth pain. Substance/Drug Use: former Date of last use: 2011. Desire information about substance/drug rehabilitation?: No Counseling given: No Caregiver/support person: Yes Lives independently: No Household members: spouse Current occupational status: employed Do you think of yourself as: Lesbian/Linares/Homosexual Current gender identity: Male Physical Exam Const: COMMON NORMALS: patient oriented x3 HENMT: COMMON NORMALS: normocephalic HEAD & SCALP: normocephalic MOUTH: Normal oral and palatal mucosa present THROAT: posterior oropharynx normal and uvula midline Neck/C-Spine: COMMON NORMALS: supple GENERAL: Yes normal visual inspection Resp: COMMON NORMALS: normal respiratory effort, No retractions, No use of accessory muscles and clear to auscultation bilaterally AUSCULTATION: clear to auscultation bilaterally Cardio: COMMON NORMALS: regular rate, regular rhythm, S1 normal heart sound present, S2 normal heart sound present, No gallops present (Cardio), No clicks present (Cardio), No murmurs present (Cardio) and Peripheral pulses 2+ throughout RATE: regular rate RHYTHM: regular rhythm HEART SOUNDS: S1 normal heart sound present and S2 normal heart sound present PERIPHERAL PULSES: Peripheral pulses 2+ throughout GI: COMMON NORMALS: Normal to inspection, nondistended, normoactive bowel sounds present, Soft to palpation, non-tender and no masses PALPATION: Yes Soft to palpation : COMMON NORMALS: Yes no CVA tenderness BLADDER/KIDNEY EXAM: Yes no CVA tenderness Back/Pelvis: COMMON NORMALS: no CVA tenderness Extremity: COMMON NORMALS: normal to inspection Neuro: COMMON NORMALS: patient oriented x3 GAIT: Yes Normal gait present Skin: NARRATIVE SKIN EXAM: Dog bite wound on left lower leg is healing up well. Mild erythema surrounding it. No warmth, tenderness or purulent drainage seen. GENERAL SKIN EXAM: dry skin Course Vital Signs: Vital signs: Vital Signs Temperature 98.1 F 10/19/22 09:12 Pulse Rate 60 10/19/22 09:12 Respiratory Rate 16 10/19/22 09:12 Blood Pressure 111/69 10/19/22 09:12 Pulse Oximetry 92 10/19/22 09:12 Oxygen Delivery Me thod Room Air 10/19/22 09:12 MDM - Animal Bite Medical Decision Making Patient is a 42-year-old male who comes to the ED for his fourth and final rabies shot. Patient was seen here in the ED back on October 03 for dog bite to left leg. He then came back to the ED and was started on rabies prophylaxis and given rabies Ig and rabies vaccine on October 05. He has gotten his second and third rabies shot on October 08 and October 12 respectively. He states that his dog bites are healing up well. Patient states he has 3 days left on his antibiotic and he has been taking it as prescribed. Denies any reactions or symptoms after last rabies shot. Denies any fevers. Dog bite wound on left lower leg is healing up well. Mild erythema surrounding it. No warmth, tenderness or purulent drainage seen. Patient was given his fourth and final rabies shot here in the ED. He was stable for discharge home. Told to follow-up with his PCP in the next week for reevaluation. Return to ED precautions given. Patient understood and agreed with plan. Discharge Plan Discharge Patient Disposition: Home Clinical Impression: Encounter for repeat administration of rabies vaccination Condition: Stable Prescriptions: No Action Ultra CoQ10 75 mg capsule 75 mg PO DAILY rosuvastatin 40 mg tablet 40 mg PO DAILY omega 4-qbs-olz-fish oil [Fish Oil] 60-90-500 mg capsule 1 cap PO DAILY pregabalin [Lyrica] 75 mg capsule 75 mg PO BID acyclovir 800 mg tablet 800 mg PO DAILY cetirizine 10 mg tablet 10 mg PO DAILY levothyroxine 25 mcg capsule 25 mcg PO DAILY elderberry fruit 200 mg capsule See Rx Instructions PO DAILY Rx Instructions: 100 mg PO daily; pantoprazole 40 mg tablet,delayed release (DR/EC) 40 mg PO DAILY Qty: 60 3RF duloxetine 60 mg capsule,delayed release(DR/EC) 60 mg PO DAILY Qty: 30 2RF lithium carbonate 150 mg capsule 150 mg PO BID Qty: 60 2RF quetiapine 100 mg tablet 100 mg PO BEDTIME 30 Days Qty: 30 2RF nitroglycerin 0.4 mg tablet, sublingual 0.4 mg SUBLINGUAL Q5M PRN (Reason: chest pain) Qty: 90 0RF aspirin 81 mg Tablet,Delayed Release (Dr/Ec) 81 mg PO DAILY Qty: 30 0RF Hold Instructions: Resume on 06/11/20. metoprolol tartrate 25 mg Tablet 25 mg PO DAILY dicyclomine 10 mg capsule 10 mg PO TID PRN Augmentin 500-125 mg tablet 1 tab PO BID Qty: 14 0RF Discharge Orders: Discharge ED (Routine); Ordered 10/19/22 Ordered By: Mac Lou Referrals: Gucci Juan SHIELD CLEANER [Primary Care Provider] - Discharge Diet: Regular Discharge Activity: Resume usual activity Activity Restrictions/Additional Instructions: You completed your last rabies shot of the series. If you did get another animal bite that put you at risk for rabies exposure you would only need to get 2 rabies shots. follow-up with medical provider as directed. Continue taking medications as previously prescribed. Return to the ER or your medical provider if condition worsens. Please read and understand discharge instructions. Thank you for choosing [facility] for your healthcare needs today. Please realize this is an emergency room and that we are providing you with a medical screening exam and this may not be complete and all inclusive of all the testing and or work up that you may need to determine your ailment or severity of your illness. It is very important that you follow up as instructed or that you return to the Emergency Department should you have concerns or if your condition changes or worsens in any way. Coding Level of Care Code ED Online Editor for Estrellita Ramos
[2022-10-19] MEDS: rabies vaccine 2.5 unit SDV IM (09:23)
== END 2022-10-19 09:35 | disposition home or self-care (01) ==
PROVIDERS: Emergency Provider Physician Assistant; PCP Nurse Practitioner
DX: Z23 Encounter for immunization (principal); Z20.3 Contact with and (suspected) exposure to rabies; S81.852D Open bite, left lower leg, subsequent encounter; W54.0XXD Bitten by dog, subsequent encounter
CPT/HCPCS: 90471; 90675; 99283

== ENCOUNTER 2022-12-26 12:28 | Outpatient (CLI) | payer MEDICAID, SELFPAY | END 2022-12-26 12:29 | disposition home or self-care (01) | LOC: ER 12:29 | PROVIDERS: PCP Nurse Practitioner; Visit Provider Family Medicine | DX: F41.1 Generalized anxiety disorder (principal); F33.2 Major depressive disorder, recurrent severe without psychotic features; F43.9 Reaction to severe stress, unspecified; F60.3 Borderline personality disorder | CPT/HCPCS: 80053; 80061; 80178; 83036; 84443; 85025 ==

== ENCOUNTER → 2023-09-01 08:38 | Outpatient (BNVA) | payer MEDICAID, SELFPAY | PROVIDERS: PCP Nurse Practitioner; Referring Provider Nurse Practitioner; Visit Provider Surgery | DX: R19.5 Other fecal abnormalities (principal); Z86.010 Personal history of colon polyps; K58.9 Irritable bowel syndrome, unspecified; R10.9 Unspecified abdominal pain; K21.9 Gastro-esophageal reflux disease without esophagitis | CPT/HCPCS: 36415; 86003; 86008; 99204; 99214 ==

== ENCOUNTER → 2023-09-07 11:02 | Outpatient (BNVA) | payer MEDICAID, SELFPAY | PROVIDERS: PCP Nurse Practitioner; Visit Provider Nurse Practitioner Family | DX: L21.8 Other seborrheic dermatitis (principal); K13.0 Diseases of lips; L30.8 Other specified dermatitis; L91.8 Other hypertrophic disorders of the skin; D22.0 Melanocytic nevi of lip; D22.39 Melanocytic nevi of other parts of face | CPT/HCPCS: 99204 ==

== ENCOUNTER → 2023-09-14 10:19 | Outpatient (BNVA) | payer MEDICAID, SELFPAY | PROVIDERS: PCP Nurse Practitioner; Referring Provider Nurse Practitioner; Visit Provider Physician Assistant | DX: M25.511 Pain in right shoulder (principal); M25.512 Pain in left shoulder; M75.41 Impingement syndrome of right shoulder; M75.42 Impingement syndrome of left shoulder | CPT/HCPCS: 20610; 73030; 99203; J3301 ==

== ENCOUNTER 2023-10-01 07:53 | Emergency (ER) | payer MEDICAID, SELFPAY ==
[2023-10-01 08:15] VITALS: BP 128/86; PULSE 92; RESP 15; TEMP 36.6; O2SAT 95; BMI 28.2
--- NOTE | 2023-10-01 08:18 | W.ED.GENADLT ---
HPI - General Adult General: Chief complaint: Extremity Injury, Upper Stated complaint: left arm pain Time Seen by Provider: 10/01/23 08:06 Source: patient Mode of arrival: ambulatory History of Present Illness: 43-year-old male presents emergency room complaining of left arm pain. He was on a riding mower and hit a swing when she relates fell. He has some redness in the midshaft of the radius. There is no obvious deformity he is able to move the arm without difficulty denies any other injury states he has pain radiating proximally at this time. Still has normal sensation and movement of the hand. Patient's mother accompanies him states she wrapped the arm last night did not improve. Patient does not use any blood thinners. Location: upper extremity (Left forearm) Radiation: proximal Associated symptoms: Deny chest pain, cough, dyspnea, fevers/chills, rash, short of breath, syncope or weakness Treatments prior to arrival: none Review of Systems Const: Denies: fever(s) or chills Card: Denies: chest pain or syncope Resp: Denies: dyspnea GI: Denies: abdominal pain : Denies: dysuria, urinary frequency or urinary urgency Musc: Denies: neck pain or back pain Skin/Breast: Denies: rash PFSH ED PFSH: Medical History History of colon polyps Bipolar 2 disorder Psychiatric care Pilonidal cyst Smoker Single vessel coronary disease Coronary disease Vasospastic angina Conclusions 1. Nonobstructive coronary disease. 2. Normal LV function EF of 55%. There is mild coronary artery disease with one vessel disease. Anterior and inferior patel are normal. Normal left ventricular systolic function. Ejection fraction of 55%. H. pylori infection Chronic diarrhea Heart murmur Guillain-[place] Dyslipidemia HTN (hypertension), benign Surgical History S/P hernia repair S/P colonoscopy History of esophagogastroduodenoscopy (EGD) Family History Mother Hypertension Diabetes Myocardial infarction Grandmother Stroke Father CAD (coronary artery disease) Social History Smoking and tobacco/nicotine status: current every day tobacco/nicotine user cigarettes Packs smoked per day: 1 Years cigarettes smoked: 25 Quit status (tobacco/nicotine): has quit using Year quit tobacco: 2020 Second hand smoke exposure: Yes (Once in a while.) Alcohol intake: former Year of sobriety/quit date alcohol: 2021 Substance/Drug Use: former Date of last use: - 2011. Caregiver/support person: Yes Lives independently: No Household members: spouse Current occupational status: employed Do you think of yourself as: Lesbian/Linares/Homosexual Current gender identity: Male Physical Exam Const: GENERAL APPEARANCE: cooperative and comfortable ORIENTATION/CONSCIOUSNESS: Yes awake, Yes oriented to person, Yes oriented to place and Yes oriented to time HENMT: COMMON NORMALS: normocephalic, atraumatic and hearing grossly normal bilaterally HEAD & SCALP: normocephalic and atraumatic Resp: COMMON NORMALS: normal respiratory effort and No use of accessory muscles Extremity: COMMON NORMALS: normal to inspection, capillary refill normal, no clubbing, cyanosis or edema, no calf tenderness and no pedal edema OTHER: Mild redness midshaft of the radius lateral portion. Neurovascularly intact distally. No deformity no rash no vesicles no skin breakdown or ulceration or laceration. No other signs of injury to the left arm. Neuro: SENSORIUM/ORIENTATION: Yes oriented to person, Yes oriented to place and Yes oriented to time Skin: COMMON NORMALS: no rashes or lesions noted GENERAL SKIN EXAM: no rashes or lesions noted Course Vital Signs: Vital signs: Vital Signs Temperature 97.8 F 10/01/23 08:15 Pulse Rate 60 10/01/23 09:51 Respiratory Rate 15 10/01/23 08:15 Blood Pressure 128/86 10/01/23 09:51 Pulse Oximetry 95 10/01/23 09:51 Oxygen Delivery Me thod Room Air 10/01/23 09:31 MDM - General Adult Medical Decision Making X-rays negative. Some soft tissue bruising but no acute fracture no lacerations supportive cares ice anti-inflammatories recheck if not improving Lab Data Radiology Impressions Forearm X-Ray 10/01/23 08:26 IMPRESSION: No acute fracture is identified. All radiology interpretation(s) finalized by discharge Discharge Plan Discharge Patient Disposition: Home Clinical Impression: Left forearm pain Condition: Stable Prescriptions: New diclofenac sodium 75 mg tablet,delayed release (DR/EC) 75 mg PO Q12H PRN (Reason: pain) Qty: 20 0RF No Action Ultra CoQ10 75 mg capsule 75 mg PO DAILY rosuvastatin 40 mg tablet 40 mg PO DAILY pregabalin [Lyrica] 75 mg capsule 100 mg PO BID acyclovir 800 mg tablet 800 mg PO DAILY cetirizine 10 mg tablet 10 mg PO DAILY levothyroxine 25 mcg capsule 25 mcg PO DAILY elderberry fruit 200 mg capsule See Rx Instructions PO DAILY Rx Instructions: 100 mg PO daily; pantoprazole 40 mg tablet,delayed release (DR/EC) 40 mg PO DAILY Qty: 60 3RF pantoprazole [Protonix] 40 mg tablet,delayed release (DR/EC) 40 mg PO BID 42 Days Qty: 84 1RF dicyclomine 20 mg tablet 20 mg PO TID 30 Days Qty: 90 12RF duloxetine 60 mg capsule,delayed release(DR/EC) 60 mg PO DAILY Qty: 30 2RF lithium carbonate 150 mg capsule 150 mg PO BID Qty: 60 2RF quetiapine 100 mg tablet 100 mg PO BEDTIME 30 Days Qty: 30 2RF prazosin 2 mg capsule 2 mg PO .HS Qty: 30 2RF nitroglycerin 0.4 mg tablet, sublingual 0.4 mg SUBLINGUAL Q5M PRN (Reason: chest pain) Qty: 90 0RF aspirin 81 mg Tablet,Delayed Release (Dr/Ec) 81 mg PO DAILY Qty: 30 0RF Hold Instructions: Resume on 06/11/20. metoprolol tartrate 25 mg Tablet 25 mg PO DAILY dicyclomine 10 mg capsule 10 mg PO TID PRN Discharge Orders: Discharge ED (Routine); Ordered 10/01/23 Ordered By: Melecio Benitez Referrals: Gucci Juan FNP [Primary Care Provider] - Discharge Diet: Usual diet Discharge Activity: Resume usual activity Patient Instructions: Opioid Safety, Pain Management Activity Restrictions/Additional Instructions: Thank you for choosing [facility] for your healthcare needs today. It is very important that you follow up as instructed or that you return to the Emergency Department should you have concerns or if your condition changes or worsens in any way. You were seen today for complaints of left forearm pain x-ray was negative there are some soft tissue irritation but no sign of significant tissue injury. Use diclofenac as needed you can ice and elevate if not improving follow-up with your primary care doctor Coding Level of Care Code ED Supervisor Ski Production for Estrellita Ramos
--- NOTE | 2023-10-01 08:26 | XRR_ITS ---
PROCEDURE INFORMATION: Exam: XR Left Forearm Exam date and time: 10/01/2023 8:38 AM Age: 43 years old Clinical indication: Left lower forearm pain. TECHNIQUE: Imaging protocol: Radiologic exam of the left forearm. Views: 2 views. COMPARISON: No relevant prior studies available. FINDINGS: Bones/joints: The scapholunate and lunotriquetral intervals are maintained. No chondrocalcinosis is seen. No fracture, dislocation or subluxation. No periosteal reaction or supsicious bone lesion. Soft tissues: No significant soft tissue swelling. XR/XR forearm LT 2V [id number] IMPRESSION: No acute fracture is identified.
[2023-10-01 09:31] VITALS: BP 128/86; PULSE 60; O2SAT 95
[2023-10-01 09:51] VITALS: BP 128/86; PULSE 60; O2SAT 95
== END 2023-10-01 09:52 | disposition home or self-care (01) ==
PROVIDERS: Emergency Provider Family Medicine; PCP Nurse Practitioner
DX: M79.632 Pain in left forearm (principal); Z79.82 Long term (current) use of aspirin; F17.210 Nicotine dependence, cigarettes, uncomplicated; I25.10 Atherosclerotic heart disease of native coronary artery without angina pectoris; E78.5 Hyperlipidemia, unspecified; I10 Essential (primary) hypertension
CPT/HCPCS: 73090; 99283

== ENCOUNTER 2023-10-04 10:59 | Day surgery (SDC) | payer MEDICAID, SELFPAY ==
[2023-10-04 11:21] VITALS: BP 137/86; PULSE 71; RESP 16; TEMP 36.2; O2SAT 96; BMI 27.0
[2023-10-04] MEDS: sodium chloride 0.9% 1,000 ML 30 ML IV (11:27)
--- NOTE | 2023-10-04 11:33 | P.ANESASSM_ITS ---
Pre-Anesthetic Assessment Height/Weight: Height 1.73 m Weight 80.739 kg Temp Pulse Resp BP Pulse Ox O2 Del Method 97.1 F L 71 16 137/86 96 Room Air 10/04/23 11:21 10/04/23 11:21 10/04/23 11:21 10/04/23 11:21 10/04/23 11:21 10/04/23 11:21 Operation Date: 10/04/23 12:15 Proposed Procedures p EGD 11435, 69831, G0105, R19.5, Z86.010, R10.9, K21.9(Not Applicable) - Simba Rivero DO s Colonoscopy(Not Applicable) - Simba Rivero DO Familial anesthetic complications: none Was Beta Vickie taken within 24 hours: Yes Was Clonidine taken within 24 hours: N/A Last intake: Intake Last Liquid Date 10/04/23 Last Liquid Time 07:30 Last Solid Date 10/02/23 Last Solid Time 18:00 Social Alcohol and No alcohol 1 pack(s) per day 25 pack years Exam alert, oriented x 3, clear to auscultation bilaterally and regular rate & rhythm Airway Submandibular: within normal limits Cervical ROM: within normal limits Mallampati: Class II Dentition: false Pulmonary None reported CV/HEM Stable Angina, Coronary Artery Disease and Hypertension None reported Hepatic None reported GI Gastroesophageal Reflux Disease Metabolic Diabetes Mellitus (pre), Hyperlipidemia and Thyroid Disease [facility] Fibromyalgia, Lower Back Pain and Osteoarthritis/DJD Neuropsych Anxiety, Bipolar, Depression and Headache Anesthetic Plan ASA status: 3 Anesthesia: MAC Risk of > 500 ml blood loss (7ml/kg in children): No Medications/Allergies Home Medications Medication Instructions Recorded Confirmed Last Taken Type aspirin 81 mg tablet,delayed 81 mg PO DAILY #30 tabs 07/29/19 10/02/23 10/02/23 Rx release nitroglycerin 0.4 mg sublingual 0.4 mg sublingual Q5M PRN chest 08/13/19 10/02/23 Unknown Rx tablet pain #90 tabs metoprolol tartrate 25 mg tablet 25 mg PO DAILY 06/05/20 10/02/23 10/02/23 History acyclovir 800 mg tablet 800 mg PO DAILY 02/11/21 10/02/23 10/03/23 History cetirizine 10 mg tablet 10 mg PO DAILY 1010/02/23 10/03/23 History levothyroxine 25 mcg capsule 25 mcg PO DAILY 02/11/21 10/02/23 10/03/23 History coenzyme Q10 75 mg capsule (Ultra 75 mg PO DAILY 03/30/21 10/02/23 10/03/23 Hi story CoQ10) rosuvastatin 40 mg tablet 40 mg PO DAILY 06/28/21 10/02/23 10/03/23 History pantoprazole 40 mg tablet,delayed 40 mg PO DAILY #60 tabs 01/26/22 10/02/23 10/02/23 Rx release pregabalin 75 mg capsule (Lyrica) 100 mg PO BID 01/10/23 10/02/23 10/03/23 History duloxetine 60 mg capsule,delayed 60 mg PO DAILY #30 caps 07/10/23 10/02/23 10/03/23 Rx release lithium carbonate 150 mg capsule 150 mg PO BID #60 caps 07/10/23 10/02/23 10/04/23 07:30 Rx prazosin 2 mg capsule 2 mg PO .HS #30 caps 07/10/23 10/02/23 10/03/23 Rx quetiapine 100 mg tablet 100 mg PO BEDTIME 30 days #30 tabs 07/10/23 10/02/23 10/03/23 Rx dicyclomine 20 mg tablet 20 mg PO TID 30 days #90 tabs 09/01/23 10/02/23 10/03/23 Rx diclofenac sodium 75 mg 75 mg PO Q12H PRN pain #20 tabs 10/01/23 10/02/23 10/03/23 Rx tablet,delayed release Allergies Allergy/AdvReac Type Severity Reaction Status Date / Time bee venom protein (honey bee) Allergy Severe ALGY-Anaphy Verified 10/02/23 16:48 laxis morphine Allergy Severe ADR-Seizure Verified 10/02/23 16:48 venom-wasp Allergy Severe ALGY-Anaphy Verified 10/02/23 16:48 laxis alcohol Allergy ALGY-Anaphy Verified 10/02/23 16:48 laxis trazodone Allergy ADR-Confusi Verified 10/02/23 16:48 on Current Medications Generic Name Dose Route Start Last Admin Trade Name Freq PRN Reason Stop Dose Admin Sodium Chloride 1,000 mls @ 30 mls/hr 10/04/23 11:15 10/04/23 11:27 Sodium Chloride 0.9% IV 10/05/23 11:14 30 mls/hr .Q24H TINY Administration PFSH Anesthesia Medical History History of colon polyps Bipolar 2 disorder Psychiatric care Pilonidal cyst Smoker Single vessel coronary disease Coronary disease Vasospastic angina Conclusions 1. Nonobstructive coronary disease. 2. Normal LV function EF of 55%. There is mild coronary artery disease with one vessel disease. Anterior and inferior patel are normal. Normal left ventricular systolic function. Ejection fraction of 55%. H. pylori infection Chronic diarrhea Heart murmur Guillain-Irwin Dyslipidemia HTN (hypertension), benign Surgical History S/P hernia repair S/P colonoscopy History of esophagogastroduodenoscopy (EGD) Family History Mother Hypertension Diabetes Myocardial infarction Grandmother Stroke Father CAD (coronary artery disease) Social History Smoking and tobacco/nicotine status: current every day tobacco/nicotine user cigarettes Packs smoked per day: 1 Years cigarettes smoked: 25 Quit status (tobacco/nicotine): has quit using Year quit tobacco: 2020 Second hand smoke exposure: Yes (Once in a while.) Alcohol intake: former Year of sobriety/quit date alcohol: 2021 Substance/Drug Use: former Date of last use: Marijuana 2011. Caregiver/support person: Yes Lives independently: No Household members: spouse Current occupational status: employed Do you think of yourself as: Lesbian/Linares/Homosexual Current gender identity: Male Data Anesthesia Cardiac Studies: Echocardiogram Ultrasound 07/19/19 Sestamibi Stress Test (Cardiology) 07/25
--- NOTE | 2023-10-04 12:12 | P.HP_ITS ---
Providers/Chief Complaint Primary Care Provider: HUSSAIN Cook Chief Complaint: R19.5 History of Present Illness Mac Bryan is a 43 year old male Review of Systems General: Reports: 10 or more systems reviewed and unremarkable except in HPI and below Medications/Allergies Home Medications Medication Instructions Recorded Confirmed Last Taken Type aspirin 81 mg tablet,delayed 81 mg PO DAILY #30 tabs 07/29/19 10/02/23 10/02/23 Rx release nitroglycerin 0.4 mg sublingual 0.4 mg sublingual Q5M PRN chest 08/13/19 10/02/23 Unknown Rx tablet pain #90 tabs metoprolol tartrate 25 mg tablet 25 mg PO DAILY 06/05/20 10/02/23 10/02/23 History acyclovir 800 mg tablet 800 mg PO DAILY 02/11/21 10/02/23 10/03/23 History cetirizine 10 mg tablet 10 mg PO DAILY 02/11/21 10/02/23 10/03/23 History levothyroxine 25 mcg capsule 25 mcg PO DAILY 02/11/21 10/02/23 10/03/23 History coenzyme Q10 75 mg capsule (Ultra 75 mg PO DAILY 03/30/21 10/02/23 10/03/23 History CoQ10) rosuvastatin 40 mg tablet 40 mg PO DAILY 06/28/21 10/02/23 10/03/23 History pantoprazole 40 mg tablet,delayed 40 mg PO DAILY #60 tabs 01/26/22 10/02/23 10/02/23 Rx release pregabalin 75 mg capsule (Lyrica) 100 mg PO BID 01/10/23 10/02/23 10/03/23 History duloxetine 60 mg capsule,delayed 60 mg PO DAILY #30 caps 07/10/23 10/02/23 10/03/23 Rx release lithium carbonate 150 mg capsule 150 mg PO BID #60 caps 07/10/23 10/02/23 10/04/23 07:30 Rx prazosin 2 mg capsule 2 mg PO .HS #30 caps 07/10/23 10/02/23 10/03/23 Rx quetiapine 100 mg tablet 100 mg PO BEDTIME 30 days #30 tabs 07/10/23 10/02/23 10/03/23 Rx dicyclomine 20 mg tablet 20 mg PO TID 30 days #90 tabs 09/01/23 10/02/23 10/03/23 Rx diclofenac sodium 75 mg 75 mg PO Q12H PRN pain #20 tabs 10/01/23 10/02/23 10/03/23 Rx tablet,delayed release Allergies Allergy/AdvReac Type Severity Reaction Status Date / Time bee venom protein (honey bee) Allergy Severe ALGY-Anaphy Verified 10/02/23 16:48 laxis morphine Allergy Severe ADR-Seizure Verified 10/02/23 16:48 venom-wasp Allergy Severe ALGY-Anaphy Verified 10/02/23 16:48 laxis alcohol Allergy ALGY-Anaphy Verified 10/02/23 16:48 laxis trazodone Allergy ADR-Confusi Verified 10/02/23 16:48 on PFSH Acute PFSH: Medical History History of colon polyps Bipolar 2 disorder Psychiatric care Pilonidal cyst Smoker Single vessel coronary disease Coronary disease Vasospastic angina Conclusions 1. Nonobstructive coronary disease. 2. Normal LV function EF of 55%. There is mild coronary artery disease with one vessel disease. Anterior and inferior patel are normal. Normal left ventricular systolic function. Ejection fraction of 55%. H. pylori infection Chronic diarrhea Heart murmur Guillain-Enola Dyslipidemia HTN (hypertension), benign Surgical History S/P hernia repair S/P colonoscopy History of esophagogastroduodenoscopy (EGD) Family History Mother Hypertension Diabetes Myocardial infarction Grandmother Stroke Father CAD (coronary artery disease) Social History Smoking and tobacco/nicotine status: current every day tobacco/nicotine user cigarettes Packs smoked per day: 1 Years cigarettes smoked: 25 Quit status (tobacco/nicotine): has quit using Year quit tobacco: 2020 Second hand smoke exposure: Yes (Once in a while.) Alcohol intake: former Year of sobriety/quit date alcohol: 2021 Substance/Drug Use: former Date of last use: 2011. Caregiver/support person: Yes Lives independently: No Household members: spouse Current occupational status: employed Do you think of yourself as: Lesbian/Linares/Homosexual Current gender identity: Male Vitals/I&O/Wt Last Vital Signs Temp 97.1 F L 10/04/23 11:21 Pulse 71 10/04/23 11:21 Resp 16 10/04/23 11:21 BP 137/86 10/04/23 11:21 Pulse Ox 96 10/04/23 11:21 O2 Del Method Room Air 10/04/23 11:21 Weight last 48 hrs Weight 178 lb A&P Assessment and plan (1) Positive colorectal cancer screening using Cologuard test: (2) Abdominal pain: (3) IBS (irritable bowel syndrome): (4) GERD (gastroesophageal reflux disease): Plan EGD and colonoscopy Attestations Medical Necessity Statement*: Home Coding Level of Care Code Acute Code for Chg Fwd Diagnoses Positive colorectal cancer screening using Cologuard test R19.5 Abdominal pain R10.9 IBS (irritable bowel syndrome) K58.9 GERD (gastroesophageal reflux disease) K21.9
[2023-10-04 12:48] VITALS: BP 109/70; PULSE 61; RESP 12; TEMP 36.3; O2SAT 94
[2023-10-04 13:06] VITALS: BP 119/70; PULSE 71; RESP 14; O2SAT 96
--- NOTE | 2023-10-04 13:25 | ANE.PACU2 ---
Inpatient post-anesthesia follow up: Airway intact: Yes Vital signs: Temperature 97.4 F Pulse Rate 71 Respiratory Rate 14 Blood Pressure 119/70 Pulse Oximetry 96 Oxygen Delivery Me thod Room Air Oxygen Flow Rate 3 Fraction of Inspir ed Oxygen Hydration adequate: Yes Nausea and vomiting: No Pain level: 1 Mental status: Baseline
[2023-10-04 15:06] LABS: C.Diff PCR (Lab) NEGATIVE (Negative)
== END 2023-10-04 13:26 | disposition home or self-care (01) ==
PROVIDERS: PCP Nurse Practitioner; Visit Provider Surgery
PROC: 0DJ08ZZ Inspection of Upper Intestinal Tract, Via Natural or Artificial Opening Endoscopic (ICD-10-PCS; CPT 43235; principal; 2023-10-04 12:15)
PROC: 0DJD8ZZ Inspection of Lower Intestinal Tract, Via Natural or Artificial Opening Endoscopic (ICD-10-PCS; CPT 45378; 2023-10-04 12:15)
DX: R19.5 Other fecal abnormalities (principal); K58.9 Irritable bowel syndrome, unspecified; K21.9 Gastro-esophageal reflux disease without esophagitis; R10.9 Unspecified abdominal pain; Z79.82 Long term (current) use of aspirin; Z86.010 Personal history of colon polyps; I25.10 Atherosclerotic heart disease of native coronary artery without angina pectoris; I10 Essential (primary) hypertension; F17.210 Nicotine dependence, cigarettes, uncomplicated; M79.7 Fibromyalgia; E11.9 Type 2 diabetes mellitus without complications; E78.5 Hyperlipidemia, unspecified; M19.90 Unspecified osteoarthritis, unspecified site; K64.4 Residual hemorrhoidal skin tags
CPT/HCPCS: 43239; 45380; 82274; 83630; 87045; 87177; 87209; 87427; 87449; 87493; 88305; J1100; J1200; J7030

== ENCOUNTER 2023-10-06 16:24 | Emergency (ER) | payer MEDICAID, SELFPAY ==
[2023-10-06 16:36] VITALS: BP 154/70; PULSE 86; RESP 16; TEMP 36.6; O2SAT 96; BMI 29.0
--- NOTE | 2023-10-06 16:53 | CTR_ITS ---
PROCEDURE INFORMATION: Exam: CT Cervical Spine Without Contrast Exam date and time: 10/06/2023 5:49 PM Age: 43 years old Clinical indication: Injury or trauma; Fall; Blunt trauma; Patient HX: Patient tripped and fell backwards off of his deck onto concrete. C/O posterior head and neck pain. TECHNIQUE: Imaging protocol: Computed tomography of the cervical spine without contrast. Radiation optimization: All CT scans at this facility use at least one of these dose optimization techniques: automated exposure control; mA and/or kV adjustment per patient size (includes targeted exams where dose is matched to clinical indication); or iterative reconstruction. COMPARISON: CT head wo con* [id number] 10/06/2023 5:46 PM RADIATION DOSE METRICS: Total DLP (mGy-cm): 166.47 FINDINGS: Bones/joints: No evidence of acute fracture or subluxation of the cervical spine. The craniocervical junction including the atlantoaxial and atlantooccipital articulations are intact. C2-C3: No central or foraminal stenosis. C3-C4: No central or foraminal stenosis. C4-C5: No central or foraminal stenosis. C5-C6: No central or foraminal stenosis. C6-C7: No central or foraminal stenosis. C7-T1: No central or foraminal stenosis. Lungs: The visualized lung apices are clear. Soft tissues: No gross soft tissue abnormality. No significant prevertebral edema. No evidence of fluid collection or hematoma. CT/CT cervical spin wo con* [id number] IMPRESSION: 1. No evidence of fracture or subluxation of the cervical spine.
--- NOTE | 2023-10-06 16:56 | CTR_ITS ---
PROCEDURE INFORMATION: Exam: CT Head Without Contrast Exam date and time: 10/06/2023 5:46 PM Age: 43 years old Clinical indication: Injury or trauma; Fall; Blunt trauma (contusions or hematomas); Patient HX: Patient tripped and fell backwards off of his deck onto concrete. C/O posterior head and neck pain. TECHNIQUE: Imaging protocol: Computed tomography of the head without contrast. Radiation optimization: All CT scans at this facility use at least one of these dose optimization techniques: automated exposure control; mA and/or kV adjustment per patient size (includes targeted exams where dose is matched to clinical indication); or iterative reconstruction. COMPARISON: No relevant prior studies available. RADIATION DOSE METRICS: Total DLP (mGy-cm): 1063.48 FINDINGS: Brain: No evidence of intra-axial or extra-axial hemorrhage. No mass effect or midline shift. Chowdhury-white differentiation is maintained. Basilar cisterns are patent. Cerebral ventricles: No hydrocephalus. Paranasal sinuses: The visualized paranasal sinuses are well aerated. Mastoid air cells: The visualized mastoids and middle ears are clear. Bones: Unremarkable. No acute fracture. Soft tissues: No gross soft tissue abnormality. CT/CT head wo con* [id number] IMPRESSION: 1. No acute intracranial abnormality.
--- NOTE | 2023-10-06 16:56 | XRR_ITS ---
PROCEDURE INFORMATION: Exam: XR Chest Exam date and time: 10/06/2023 5:39 PM Age: 43 years old Clinical indication: Dyspnea; Additional info: Dyspnea/cough TECHNIQUE: Imaging protocol: Radiologic exam of the chest. Views: 1 view. COMPARISON: CR XR chest 1V portable [id number] 07/28/2019 9:01 PM FINDINGS: Lungs: No focal consolidation. Ill-defined 10 mm nodular opacities in the lower left lung, possibly representing superimposed soft tissues. Pleural spaces: No evidence of pneumothorax. No evidence of pleural effusion. Heart/Mediastinum: Cardiomediastinal silhouette is within normal limits. Bones/joints: No evidence of acute osseous abnormality. XR/XR chest 1V portable [id number] IMPRESSION: 1. No acute cardiopulmonary abnormality. 2. Ill-defined 10 mm nodular opacities in the lower left lung, possibly representing superimposed soft tissues. Consider nonemergent CT of the chest to exclude a pulmonary nodule.
[2023-10-06 17:06] VITALS: BP 105/67; PULSE 80; O2SAT 95
[2023-10-06 17:16] LABS: Basophils % 0.1 %; Eosinophils % 0.2 %; Hematocrit 39.4 % (37-53); Lymphocytes % 16.8 %; Mean Corpuscular Hemoglobin 30.4 pg (27-33); Mean Corpuscular Volume 92.1 fl (82-101); Monocytes # 0.6 10^3/uL (0.2-0.9); Monocytes % 5.3 %; Neutrophils # 9.36 10^3/uL (1.8-7.7); Neutrophils % 77.3 %; Nucleated Red Blood Cells % 0 %; Platelet Count 197 10^3/cmm (157-399); Red Blood Count 4.28 10^6/uL (3.85-5.65); White Blood Count 12.11 10^3/uL (3.29-11.43)
[2023-10-06 17:35] LABS: Alanine Aminotransferase 27 U/L (0-41); Albumin Level 4.1 g/dL (3.5-5.2); Alkaline Phosphatase 45 U/L (40-130); Anion Gap 12.9 (5-19); Aspartate Amino Transferase 31 U/L (0-40); Blood Urea Nitrogen 8 mg/dL (6-20); Calcium 8.7 mg/dL (8.5-10.5); Carbon Dioxide 24 mmol/L (22-29); Chloride 107 mmol/L (98-107); Creatinine Clr Calc Pharmacy 97.5409; Globulin 2.4 g/dL (1.3-4.6); Glomerular Filtration Rate 82.3 mL/min (90-130); Glucose 85 mg/dL (65-115); Osmolality Calculated 288 mOsm/kg (285-295); Potassium 3.9 mmol/L (3.5-5.1); Sodium 140 mmol/L (136-145); Total Bilirubin 0.3 mg/dL (0.15-1.2); Total Protein 6.5 g/dL (6.6-8.7)
--- NOTE | 2023-10-06 19:37 | ED_ITS ---
HPI - Fall 2 General: Chief Complaint: Fall Stated Complaint: fall onto back Time Seen by Provider: 10/06/23 16:49 Source: patient Mode of arrival: ambulatory History of Present Illness: 43-year-old male presents to the emergen cy room after a fall. He fell earlier today backwards on a porch at the back of his head. He thought he might of blacked out for a few seconds after he fell. No vomiting. Is complaining of little bit of neck discomfort as well. No chest pain or shortness of breath denies any other injuries she was seen earlier this week for a blow to the forearm that was unremarkable. MD complaint: fall Onset (ago): hour(s) Fall from: chair Fall witnessed: yes, by family Place fall occurred: home Loss of consciousness: Yes Length of LOC: second(s) Prolonged down time: no Context: tripped/slipped Associated symptoms-after fall: Denies abdominal pain, chest pain, confusion, difficulty walking, headache(s), hematuria, lightheadedness, neck pain, numbness, short of breath, vertigo or weakness Review of Systems 2 Const: Denies: fever(s) or chills Card: Denies: chest pain or lightheadedness Resp: Denies: dyspnea GI: Denies: abdominal pain, nausea or vomiting : Denies: hematuria Musc: Denies: neck pain Skin/Breast: Denies: rash Neuro: Denies: headache(s), difficulty walking, vertigo or confusion PFSH ED 2 PFSH: Medical History History of colon polyps Bipolar 2 disorder Psychiatric care Pilonidal cyst Smoker Single vessel coronary disease Coronary disease Vasospastic angina Conclusions 1. Nonobstructive coronary disease. 2. Normal LV function EF of 55%. There is mild coronary artery disease with one vessel disease. Anterior and inferior patel are normal. Normal left ventricular systolic function. Ejection fraction of 55%. H. pylori infection Chronic diarrhea Heart murmur Guillain-Hanna Dyslipidemia HTN (hypertension), benign Surgical History S/P hernia repair S/P colonoscopy History of esophagogastroduodenoscopy (EGD) Family History Mother Hypertension Diabetes Myocardial infarction Grandmother Stroke Father CAD (coronary artery disease) Social History Smoking and tobacco/nicotine status: current every day tobacco/nicotine user cigarettes Packs smoked per day: 1 Years cigarettes smoked: 25 Quit status (tobacco/nicotine): has quit using Year quit tobacco: 2020 Second hand smoke exposure: Yes (Once in a while.) Alcohol intake: former Year of sobriety/quit date alcohol: 2021 Substance/Drug Use: former Date of last use: Marijuana - 2011. Caregiver/support person: Yes Lives independently: No Household members: spouse Current occupational status: employed Do you think of yourself as: Lesbian/Linares/Homosexual Current gender identity: Male Physical Exam 2 Const: GENERAL APPEARANCE: cooperative and comfortable O RIENTATION/CONSCIOUSNESS: Yes awake, Yes oriented to person, Yes oriented to place and Yes oriented to time HENMT: COMMON NORMALS: normocephalic, atraumatic and hearing grossly normal bilaterally HEAD & SCALP: normocephalic and atraumatic Resp: COMMON NORMALS: normal respiratory effort, No retractions, No use of accessory muscles and clear to auscultation bilaterally AUSCULTATION: clear to auscultation bilaterally Cardio: COMMON NORMALS: regular rate, regular rhythm and No murmurs present (Cardio) RATE: regular rate RHYTHM: regular rhythm GI: COMMON NORMALS: Soft to palpation and No hepatosplenomegaly present A USCULTATION: Yes normoactive bowel sounds PALPATION: Yes Soft to palpation, No Tenderness to palpation present (GI), No Guarding due to palpation present (GI) and Yes No hepatosplenomegaly present Extremity: COMMON NORMALS: normal to inspection, capillary refill normal, no clubbing, cyanosis or edema, no calf tenderness and no pedal edema Neuro: SENSORIUM/ORIENTATION: Yes oriented to person, Yes oriented to place and Yes oriented to time Skin: COMMON NORMALS: no rashes or lesions noted GENERAL SKIN EXAM: no rashes or lesions noted Course 2 Vital Signs: Vital signs: Vital Signs Temperature 97.9 F 10/06/23 16:36 Pulse Rate 80 10/06/23 17:06 Respiratory Rate 16 10/06/23 16:36 Blood Pressure 105/67 10/06/23 17:06 Pulse Oximetry 95 10/06/23 17:06 Oxygen Delivery Me thod Room Air 10/06/23 17:06 MDM - Fall Medical Decision Making CTs and x-ray did not show no clinically significant acute injury. Discharge home with anti-inflammatories. He did have a questionable nodule in the left lower lung he will need a CT as an outpatient and a nonemergent basis. He can do this through his PCP. Noted this in the x-ray report after the patient left we will contact the patient and advised him to follow-up with his primary care doctor regarding this. Medical Records I reviewed the patient's medical records. Lab Data I reviewed the patient's lab results. 10/06/23 17:11 10/06/23 17:11 Radiology Impressions Cervical Spine CT 10/06/23 16:53 IMPRESSION: 1. No evidence of fracture or subluxation of the cervical spine. Chest X-Ray 10/06/23 16:56 IMPRESSION: 1. No acute cardiopulmonary abnormality. 2. Ill-defined 10 mm nodular opacities in the lower left lung, possibly representing superimposed soft tissues. Consider nonemergent CT of the chest to exclude a pulmonary nodule. Head CT 10/06/23 16:56 IMPRESSION: 1. No acute intracranial abnormality. Laboratory Results WBC 12.11 10^3/uL (3.29-11.43) H 10/06/23 17:11 RBC 4.28 10^6/uL (3.85-5.65) 10/06/23 17:11 Hgb 13.00 g/dL (11.27-16.99) 10/06/23 17:11 Hct 39.4 % (37-53) 10/06/23 17:11 MCV 92.1 fl (82-101) 10/06/23 17:11 MCH 30.4 pg (27-33) 10/06/23 17:11 MCHC 33.0 g/dL (30-55) 10/06/23 17:11 RDW 14.0 % (12.1-15.1) 10/06/23 17:11 Plt Count 197 10^3/cmm (157-399) 10/06/23 17:11 MPV 9.0 fL (7.4-10.4) 10/06/23 17:11 Neut % (Auto) 77.3 % 10/06/23 17:11 Lymph % (Auto) 16.8 % 10/06/23 17:11 [place] % (Auto) 5.3 % 10/06/23 17:11 Eos % (Auto) 0.2 % 10/06/23 17:11 Baso % (Auto) 0.1 % 10/06/23 17:11 Neut # (Auto) 9.36 10^3/uL (1.8-7.7) H 10/06/23 17:11 Lymph # (Auto) 2.0 10^3/uL (0.8-4.8) 10/06/23 17:11 [place] # (Auto) 0.6 10^3/uL (0.2-0.9) 10/06/23 17:11 Eos # (Auto) 0.0 10^3/uL (0.0-0.8) 10/06/23 17:11 Baso # (Auto) 0.0 10^3/uL (0.0-0.1) 10/06/23 17:11 Nucleated RBC % (auto) 0 % 10/06/23 17:11 Nucleated RBCs # 0.0 /100WBC 10/06/23 17:11 Sodium 140 mmol/L (136-145) 10/06/23 17:11 Potassium 3.9 mmol/L (3.5-5.1) 10/06/23 17:11 Chloride 107 mmol/L (98-107) 10/06/23 17:11 Carbon Dioxide 24 mmol/L (22-29) 10/06/23 17:11 Anion Gap 12.9 (5-19) 10/06/23 17:11 BUN 8 mg/dL (6-20) 10/06/23 17:11 Creatinine 1.0 mg/dL (0.7-1.2) 10/06/23 17:11 GFR Calculation 82.3 mL/min (90-130) L 10/06/23 17:11 Glucose 85 mg/dL (65-115) 10/06/23 17:11 Calculated Osmolality 288 mOsm/kg (285-295) 10/06/23 17:11 Calcium 8.7 mg/dL (8.5-10.5) 10/06/23 17:11 Total Bilirubin 0.3 mg/dL (0.15-1.2) 10/06/23 17:11 AST 31 U/L (0-40) 10/06/23 17:11 ALT 27 U/L (0-41) 10/06/23 17:11 Alkaline Phosphatase 45 U/L (40-130) 10/06/23 17:11 Total Protein 6.5 g/dL (6.6-8.7) L 10/06/23 17:11 Albumin 4.1 g/dL (3.5-5.2) 10/06/23 17:11 Globulin 2.4 g/dL (1.3-4.6) 10/06/23 17:11 All radiology interpretation(s) finalized by discharge Discharge Plan Discharge Patient Disposition: Home Clinical Impression: Fall, Closed head injury Condition: Stable Prescriptions: No Action Ultra CoQ10 75 mg capsule 75 mg PO DAILY rosuvastatin 40 mg tablet 40 mg PO DAILY pregabalin [Lyrica] 75 mg capsule 100 mg PO BID acyclovir 800 mg tablet 800 mg PO DAILY cetirizine 10 mg tablet 10 mg PO DAILY levothyroxine 25 mcg capsule 25 mcg PO DAILY pantoprazole 40 mg tablet,delayed release (DR/EC) 40 mg PO DAILY Qty: 60 3RF dicyclomine 20 mg tablet 20 mg PO TID 30 Days Qty: 90 12RF duloxetine 60 mg capsule,delayed release(DR/EC) 60 mg PO DAILY Qty: 30 2RF lithium carbonate 150 mg capsule 150 mg PO BID Qty: 60 2RF quetiapine 100 mg tablet 100 mg PO BEDTIME 30 Days Qty: 30 2RF prazosin 2 mg capsule 2 mg PO .HS Qty: 30 2RF nitroglycerin 0.4 mg tablet, sublingual 0.4 mg SUBLINGUAL Q5M PRN (Reason: chest pain) Qty: 90 0RF aspirin 81 mg Tablet,Delayed Release (Dr/Ec) 81 mg PO DAILY Qty: 30 0RF Hold Instructions: Resume on 06/11/20. metoprolol tartrate 25 mg Tablet 25 mg PO DAILY Procto-Med HC 2.5 % cream with perineal applicator 1 applic UT QID 21 Days Qty: 30 0RF diclofenac sodium 75 mg tablet,delayed release (DR/EC) 75 mg PO Q12H PRN (Reason: pain) Qty: 20 0RF Discharge Orders: Discharge ED (Routine); Ordered 10/06/23 Ordered By: Melecio Benitez Referrals: Gucci Juan FNP [Primary Care Provider] - Discharge Diet: Usual diet Discharge Activity: Increase activity as tolerated Patient Instructions: Opioid Safety, Pain Management Activity Restrictions/Additional Instructions: Thank you for choosing [facility] for your healthcare needs today. It is very important that you follow up as instructed or that you return to the Emergency Department should you have concerns or if your condition changes or worsens in any way. You were seen today after a fall. You can use the anti-inflammatories prescribed earlier this week as needed for aches and pains. Coding Level of Care Code ED Loss Prevention Representative for Estrellita Ramos
--- NOTE | 2023-10-06 20:03 | PC.NURSE ---
Pt. called to inform that radiologist recommended following up with primary doctor to get outpatient CT scan to assess nodule found in prior scan.
== END 2023-10-06 19:20 | disposition home or self-care (01) ==
PROVIDERS: Emergency Provider Family Medicine; PCP Nurse Practitioner
DX: S09.8XXA Other specified injuries of head, initial encounter (principal); Z79.82 Long term (current) use of aspirin; F17.210 Nicotine dependence, cigarettes, uncomplicated; I25.10 Atherosclerotic heart disease of native coronary artery without angina pectoris; E78.5 Hyperlipidemia, unspecified; I10 Essential (primary) hypertension; W18.39XA Other fall on same level, initial encounter
CPT/HCPCS: 36415; 70450; 71045; 72125; 80053; 85025; 99284

== ENCOUNTER → 2023-10-19 10:30 | Outpatient (BNVA) | payer MEDICAID, SELFPAY | PROVIDERS: PCP Nurse Practitioner; Visit Provider Nurse Practitioner Family | DX: Z70.0 Counseling related to sexual attitude (principal); L21.8 Other seborrheic dermatitis; L30.8 Other specified dermatitis; K13.0 Diseases of lips; D22.5 Melanocytic nevi of trunk | CPT/HCPCS: 80053; 80061; 83036; 84443; 99214 ==

== ENCOUNTER → 2023-10-20 09:18 | Outpatient (BNVA) | payer MEDICAID, SELFPAY | PROVIDERS: PCP Nurse Practitioner; Visit Provider Surgery | DX: Z09 Encounter for follow-up examination after completed treatment for conditions other than malignant neoplasm (principal); K64.4 Residual hemorrhoidal skin tags; R10.9 Unspecified abdominal pain; K52.9 Noninfective gastroenteritis and colitis, unspecified | CPT/HCPCS: 99214 ==

== ENCOUNTER → 2025-02-10 13:46 | Outpatient (BNVA) | payer OTHER, SELFPAY ==
[2024-04-23 13:53] VITALS: BP 120/76; BMI 29.9
== END ==
PROVIDERS: PCP Nurse Practitioner; Visit Provider Nurse Practitioner Psychiatric/Mental Health
DX: Z79.899 Other long term (current) drug therapy (principal)
CPT/HCPCS: 80053; 82306; 83036